=== PATIENT | female | born 1940 | race Caucasian/White ===

== ENCOUNTER 2018-04-08 06:55 | Inpatient (IN) | payer MEDICARE, OTHER, SELFPAY ==
[2018-04-08] VITALS (8 sets, daily range): BP systolic 131–167; BP diastolic 78–96; PULSE 82–110; RESP 16–28; TEMP 36.8–37.4; O2SAT 94–98; BMI 15.0
--- NOTE | 2018-04-08 07:40 | DI.CT.S_ITS ---
PROCEDURE: CT ABDOMEN PELVIS W CON INDICATIONS: vomiting, small amt blood. no BM x 3 days. RLQ/LLQ tender TECHNIQUE: After the administration of intravenous contrast, 5 mm thick sections acquired from the diaphragm to the symphysis. 5 mm coronal and sagittal reformats were acquired. For radiation dose reduction, the following was used: automated exposure control, adjustment of mA and/or kV according to patient size. COMPARISON: [facility], , CT THORAX/ABDOMEN/PELVIS W/WO CONTRAST, 07/12/2003, 13:11. FINDINGS: Image quality: Excellent. ABDOMEN: Lung bases: Lung bases are clear. Heart size is normal. Solid organs: Liver is normal in size and enhancement. Gallbladder is unremarkable. Biliary system is non dilated. Pancreas enhances normally. Spleen is normal in size and enhancement. No adrenal nodules. Kidneys demonstrate normal size and enhancement, without hydronephrosis. Low-density cystic lesions are present within the bilateral kidneys. Peritoneum and bowel: The stomach is partially contrast filled. The small bowel demonstrates normal caliber and wall thickness. Oral contrast is visualized within the small bowel. There are extensive colonic diverticular outpouchings most concentrated within the sigmoid colon. The appendix is thin walled and gas filled. There is a moderate amount of pneumoperitoneum at the diaphragm. Nodes and vessels: No retroperitoneal or mesenteric adenopathy by size criteria. Aorta and inferior vena cava are normal in size. There are scattered atheromatous calcifications throughout the aorta and iliac arteries bilaterally. Miscellaneous: No ventral hernias. PELVIS: Genitourinary: Bladder wall thickness is normal. Miscellaneous: No inguinal hernias or adenopathy. Bones: No suspicious bony lesions. No vertebral body compression fractures. IMPRESSION: 1. Moderate pneumoperitoneum at the diaphragm. Overall the bowel demonstrates normal caliber and wall thickness. There are no obvious abnormalities to explain pneumoperitoneum. 2. Extensive colonic diverticulosis. No mucosal wall thickening or pericolonic fat stranding to suggest acute diverticulitis. These findings were discussed with Dr. Peck 3:32 AM on 04/08/18. Dictated by: Alicja Van M.D. on 04/08/2018 at 9:27 Approved by: Alicja Van M.D. on 04/08/2018 at 9:35
--- NOTE | 2018-04-08 07:46 | ED_ITS ---
HPI - Abdominal Pain General Chief Complaint: Abdominal Pain Stated Complaint: Abdominal pain, throwing up blood Time Seen by Provider: 04/08/18 07:29 Source: patient and family ( ) Mode of arrival: ambulatory Limitations: no limitations History of Present Illness HPI narrative: 78-year-old female comes to the emergency department with complaint abdominal pain she has had symptoms for about 3 days but really was start were starting last night. She states that it Um is more in the right upper quadrant it did radiate to the back but is now just in the front abdomen. If she sits still Um the pain will kind of slowly subside but if she is walking or drooling it increases her pain. She did have vomiting about 630 last night 3 or 4 episodes. She states she saw a small amount of blood in each episode of emesis. Approximately a tsp. She states it was bright red. She has not had a bowel movement in approximately 3 days. She states she is having a small amount of flatus. she denies any urinary symptoms no frequency, dysuria. Patient has not had similar abdominal pain issues in the past. She does not normally follow with a physician. She states she has otherwise been healthy Does not take any medications regularly. She has not had any prior surgeries. She does have a penicillin allergy but does not remember the reaction. she smokes 1 cigarette daily for about 15 years and before then was smoking about a pack a day. alcohol approximately a glass per month. No illicit. Patient states her nausea has resolved and her pain is very slight at this time. She defers any pain or anti emetics medication. Onset (ago): day(s) Related Data Home Medications Medication Instructions Recorded Confirmed No Known Home Medications 04/08/18 04/08/18 Allergies Allergy/AdvReac Type Severity Reaction Status Date / Time Penicillins Allergy Verified 04/08/18 07:20 Review of Systems Review of Systems All systems reviewed & are unremarkable except as noted in HPI and below Constitutional Reports chills, Denies fever(s) and Denies poor appetite Cardiovascular Denies chest pain, Denies syncope, Denies irregular heart rhythm, Denies lightheadedness, Denies palpitations, Denies dyspnea, Denies dyspnea on exertion and Denies orthopnea Respiratory Denies cough, Denies dyspnea, Denies dyspnea on exertion and Denies wheezing Gastrointestinal Gastrointestinal: Reports abdominal pain, Denies melena, Denies hematochezia, Reports change in bowel habits, Denies coffee ground emesis, Reports constipation, Denies cramping, Denies early satiety, Denies diarrhea, Reports nausea, Reports vomiting ( Last night none today) and Reports hematemesis ( approximately tsp with emesis last night.) Genitourinary Denies hematuria, Denies flank pain, Denies urinary incontinence and Denies urinary urgency Musculoskeletal Denies back pain Neurologic Denies syncope Endocrine Denies palpitations Allergic/Immunologic Denies wheezing PFSH Medical History TIA (transient ischemic attack) (Acute) Social History household members: spouse Smoking Status: Current every day smoker alcohol intake: current Exam Initial Vital Signs Initial Vital Signs: Vital Signs Temperature 98.2 F 04/08/18 07:11 Pulse Rate 110 H 04/08/18 07:11 Respiratory Rate 18 04/08/18 07:11 Blood Pressure 146/96 H 04/08/18 07:11 Pulse Oximetry 98 04/08/18 07:11 Const General: cooperative and well developed Nutritional Appearance: thin Orientation: alert, awake, oriented x3 and not confused Chest Chest: normal inspection of the chest Resp Effort & Inspection: normal respiratory effort, able to speak in complete sentences, no respiratory distress and no use of accessory muscles Auscultation: clear to auscultation bilaterally, no rales, no rhonchi and no wheezes Cardio Rate: regular rate Rhythm: regular rhythm Heart Sounds: no click, no gallops, no murmurs and no rubs Pulses: normal peripheral pulses GI Inspection: non-distended Palpation: soft, no hepatosplenomegaly, No firm, No guarding, No mass, No pulsatile mass, No rigid and tender ( Patient has right lower and left lower quadrant tenderness to palpation. Minimal to no tenderness in the right upper quadrant.) Auscultation: normal bowel sounds General: No CVA tenderness Neuro General: alert, oriented x3, gait normal and no focal motor deficits Cognition: normal cognition Speech: speech normal Course Orders Ordered: ED Orders 04/08/18 12:00 MRSA PCR Stat 04/09/18 05:00 Complete Blood Count AUTO DIFF Routine Comprehensive Metabolic Panel Routine Sodium Chloride (Normal Saline 0.9%) 1,000 mls @ 150 mls/hr IV CONT LIDIA Last Infusion: 04/08/18 14:02 Dose: 0 mls/hr Infusion: 04/08/18 10:27 Dose: 150 mls/hr Admin: 04/08/18 08:56 Dose: 150 mls/hr Lactated Ringer's (Lactated Ringers) 1,000 mls @ 125 mls/hr IV CONT LIDIA Last Admin: 04/08/18 14:02 Dose: 125 mls/hr Piperacillin/Tazobactam/Dextrose (Zosyn) 3.375 gm in 50 mls @ 100 mls/hr IV Q8H LIDIA Last Admin: 04/08/18 18:35 Dose: 100 mls/hr Morphine Sulfate (Morphine) 2 mg IV Q3H PRN PRN Reason: Pain, Moderate (4-6) Morphine Sulfate (Morphine) 4 mg IV Q3HR PRN PRN Reason: Pain, Severe (7-10) Pantoprazole Sodium (Protonix) 40 mg IV DAILY LIDIA Discontinued Medications Piperacillin/Tazobactam/Dextrose (Zosyn) 3.375 gm in 50 mls @ 100 mls/hr IV NOW ONE Stop: 04/08/18 10:22 Last Infusion: 04/08/18 11:00 Dose: 0 mls/hr Admin: 04/08/18 10:26 Dose: 100 mls/hr Pantoprazole Sodium (Protonix) 40 mg IV NOW ONE Stop: 04/08/18 12:47 Last Admin: 04/08/18 14:01 Dose: 40 mg Reevaluation(s) Reevaluation #1: Patient pain is controlled currently. She is on her way to CT scan. Time: 09:28 Consultations Consultation #1: Dr. Loyola for general surgery, accepts patient plan for ICU admission. Um she will evaluate patient in the next 0.5 hr to hour. we discussed giving Zosyn, patient has a history of penicillin allergy around the age of 21 but unknown cause does not sound like an anaphylaxis from what she remembers. So will go ahead and give Zosyn and continue to monitor. Vital Signs - 8 hr 04/08/18 11:00 04/08/18 11:45 04/08/18 12:36 Temperature 98.8 F Pulse Rate 92 H 94 H 84 Respiratory Rate 18 20 16 Blood Pressure 131/89 166/83 H Blood Pressure [Right Arm] 146/78 H Pulse Oximetry 96 96 98 04/08/18 12:43 04/08/18 16:00 Temperature 99.3 F Pulse Rate 82 87 Respiratory Rate 19 20 Blood Pressure 166/83 H 156/90 H Blood Pressure [Right Arm] Pulse Oximetry 96 96 MDM - Abdominal Pain Lab Data Attestation: I reviewed the patient's lab results. Result diagrams: 04/08/18 07:45 04/08/18 07:45 Lab Results 04/08/18 04/08/18 04/08/18 Range/Units 07:45 07:45 12:00 WBC 12.3 H (4.5-11.0) X10^3/uL RBC 4.94 (4.0-5.2) X10^6/uL Hgb 14.9 (12.0-16.0) g/dL Hct 43.8 (36-46) % MCV 88.7 (80-100) fL MCH 30.2 (26-34) PG MCHC 34.0 (30-36) % RDW 13.2 (11.6-14.8) % Plt Count 209 (150-400) X10^3/uL Neut % (Auto) 90.3 H (50-75) % Lymph % (Auto) 4.7 L (25-40) % [place] % (Auto) 4.9 (3-14) % Eos % (Auto) 0.0 L (2-4) % Baso % (Auto) 0.1 (0-2) % Neut # (Auto) 57569 H (1793-9355) /uL Sodium 142 (137-145) mmol/L Potassium 4.2 (3.4-5.1) mmol/L Chloride 103 (98-107) mmol/L Carbon Dioxide 27 (22-32) mmol/L BUN 18 H (7-17) mg/dL Creatinine 0.70 (0.52-1.04) mg/dL Estimated GFR > 60.0 (>60) mL/min BUN/Creatinine Ratio 25.7 H (6-22) Glucose 153 H (80-110) mg/dL Calcium 9.3 (8.4-10.2) mg/dL Total Bilirubin 1.4 H (0.2-1.3) mg/dL AST 24 (14-36) IU/L ALT 21 (9-52) IU/L Alkaline Phosphatase 68 (38-126) U/L Total Protein 6.5 (6.3-8.2) g/dL Albumin 4.3 (3.5-5.0) g/dL Globulin 2.2 (1.7-4.1) g/dL Albumin/Globulin Ratio 2.0 (1.0-2.8) Lipase 32 (23-300) U/L Nasal Screen MRSA (PCR) Negative for mrsa (Negative) Imaging Data CT scan - abdomen: Radiologist's impression: Patient: Sarita Suarez#: [id number] : 1Acct:[id number] Age/Sex: 78 / FDate of Service: 04/08/18 Loc: ED Accession Number: [id number] Procedure: CT abdomen pelvis w con Ordering Provider: Sosa Peck D.O. PROCEDURE: CT ABDOMEN PELVIS W CON INDICATIONS: vomiting, small amt blood. no BM x 3 days. RLQ/LLQ tender TECHNIQUE: After the administration of intravenous contrast, 5 mm thick sections acquired from the diaphragm to the symphysis. 5 mm coronal and sagittal reformats were acquired. For radiation dose reduction, the following was used: automated exposure control, adjustment of mA and/or kV according to patient size. COMPARISON: [facility], , CT THORAX/ABDOMEN/PELVIS W/WO CONTRAST, 2002, 13:11. FINDINGS: Image quality: Excellent. ABDOMEN: Lung bases: Lung bases are clear. Heart size is normal. Solid organs: Liver is normal in size and enhancement. Gallbladder is unremarkable. Biliary system is non dilated. Pancreas enhances normally. Spleen is normal in size and enhancement. No adrenal nodules. Kidneys demonstrate normal size and enhancement, without hydronephrosis. Low-density cystic lesions are present within the bilateral kidneys. Peritoneum and bowel: The stomach is partially contrast filled. The small bowel demonstrates normal caliber and wall thickness. Oral contrast is visualized within the small bowel. There are extensive colonic diverticular outpouchings most concentrated within the sigmoid colon. The appendix is thin walled and gas filled. There is a moderate amount of pneumoperitoneum at the diaphragm. Nodes and vessels: No retroperitoneal or mesenteric adenopathy by size criteria. Aorta and inferior vena cava are normal in size. There are scattered atheromatous calcifications throughout the aorta and iliac arteries bilaterally. Miscellaneous: No ventral hernias. PELVIS: Genitourinary: Bladder wall thickness is normal. Miscellaneous: No inguinal hernias or adenopathy. Bones: No suspicious bony lesions. No vertebral body compression fractures. IMPRESSION: 1. Moderate pneumoperitoneum at the diaphragm. Overall the bowel demonstrates normal caliber and wall thickness. There are no obvious abnormalities to explain pneumoperitoneum. 2. Extensive colonic diverticulosis. No mucosal wall thickening or pericolonic fat stranding to suggest acute diverticulitis. These findings were discussed with Dr. Peck 3:32 AM on 04/08/18. Dictated by: Alicja Van M.D. on 04/08/2018 at 9:27 Approved by: Alicja Van M.D. on 04/08/2018 at 9:35 MDM Narrative Medical decision making narrative: patient has slight elevation in white count. CT shows free air although the source is unclear. Patient herself does not appear to have an acute abdomen although she has tenderness. Spoke with General surgery and Dr. Loyola who accepts patient for ICU admission for close observation and plan for further imaging potentially tomorrow versus surgery depending on patient's status overnight. patient was placed on Zosyn but do realize that she has a history of penicillin allergy although that was around age 21 and she does not recall the exact cause but she will be closely monitored. Discharge Plan Departure Patient Disposition: Admitted As Inpatient Clinical Impression: Intra-abdominal free air of unknown etiology, Abdominal pain Discharge Date/Time: 04/08/18 11:35 Interventions: ED Discharge Assessment Last Done: 04/08/18 11:45 Admit Date/Time: 04/08/18 11:34 Admit Provider: Meg Loyola
[2018-04-08 07:56] LABS: Add Manual Diff / Slide Review NO; Basophils Percent Auto 0.1 % (0-2); Hematocrit 43.8 % (36-46); Hemoglobin 14.9 g/dL (12.0-16.0); Lymphocytes Percent Auto 4.7 % (25-40); Mean Corpuscular Hemoglobin 30.2 PG (26-34); Mean Corpuscular Volume 88.7 fL (80-100); Monocytes Percent Auto 4.9 % (3-14); Neutrophils Absolute Auto 11100 /uL (3000-5900); Neutrophils Percent Auto 90.3 % (50-75); Platelet Count 209 X10^3/uL (150-400); Red Blood Cell Count 4.94 X10^6/uL (4.0-5.2); Red Cell Distribution Width 13.2 % (11.6-14.8); White Blood Cell Count 12.3 X10^3/uL (4.5-11.0)
[2018-04-08 08:06] LABS: Alanine Aminotransferase 21 IU/L (9-52); Albumin 4.3 g/dL (3.5-5.0); Alkaline Phosphatase 68 U/L (38-126); Aspartate Aminotransferase 24 IU/L (14-36); BUN Creatinine Ratio 25.7 (6-22); Bilirubin Total 1.4 mg/dL (0.2-1.3); Blood Urea Nitrogen 18 mg/dL (7-17); Calcium 9.3 mg/dL (8.4-10.2); Carbon Dioxide 27 mmol/L (22-32); Chloride 103 mmol/L (98-107); Estimated Glomerular Filt Rate > 60.0 mL/min (>60); Globulin 2.2 g/dL (1.7-4.1); Glucose 153 mg/dL (80-110); HEMOLYSIS 17 (0-50); Lipase 32 U/L (23-300); Potassium 4.2 mmol/L (3.4-5.1); Sodium 142 mmol/L (137-145); Total Protein 6.5 g/dL (6.3-8.2)
[2018-04-08] MEDS: SODIUM CHLORIDE 0.9% 1,000 ML 150 ML IV (08:56)
[2018-04-08] MEDS: PIPERACILLIN-TAZO 3.375 GM/50 ML FROZ.PIGGY IV ×2 (10:26→18:35)
--- NOTE | 2018-04-08 13:13 | PC.NURSE ---
PT ADMITTED TO ICU AFTER BEING SEEN IN ED FOR ABD PAIN AND INCREASED NAUSEA WITH EMESIS OVER PAST COUPLE OF DAYS.. VSS AFEBRILE ALERT/ORIENTED - REQUESTED WARM COMPRESS TO ABD RATHER THAN RX - LUNGS CLEAR TO AUSCULTATION, ORIENTED TO ROOM/BED AND CALL LIGHT SYSTEM-
[2018-04-08] MEDS: PANTOPRAZOLE 40 MG VIAL IV (14:01)
[2018-04-08] MEDS: LACTATED RINGERS 1,000 ML 125 ML IV ×2 (14:02→22:04)
--- NOTE | 2018-04-08 22:50 | PC.NURSE ---
tito note Pt reports some abd cramping. Pt says warm packs to abd help. New warm pack supplied. Denies N/V.
[2018-04-09] VITALS (18 sets, daily range): BP systolic 99–185; BP diastolic 63–95; PULSE 87–112; RESP 14–19; TEMP 36.1–37.2; O2SAT 93–100
--- NOTE | 2018-04-09 | DI.CT.S_ITS ---
PROCEDURE: CT ABDOMEN PELVIS W CON INDICATIONS: increase abd pain, h/o free air. pneumoperitoneum TECHNIQUE: After the administration of oral and intravenous contrast, 5 mm thick sections acquired from the diaphragms to the symphysis. 5 mm thick coronal and sagittal reformats were performed. For radiation dose reduction, the following was used: automated exposure control, adjustment of mA and/or kV according to patient size. COMPARISON: [facility], [place], CT THORAX/ABDOMEN/PELVIS W/WO CONTRAST, 07/12/2003, 13:11. [facility], CT, CT ABDOMEN PELVIS W CON, 04/08/2018, 8:57. FINDINGS: Image quality: Excellent. ABDOMEN: Lung bases: 5 mm nodule seen in the subpleural region of left lower lobe is grossly unchanged since 07/12/03.. Solid organs: Diffuse hepatic steatosis.. Gallbladder unremarkable. Biliary system is non-dilated. Pancreas enhances normally. Spleen is normal in size and enhancement. No adrenal nodules. Kidneys are normal in size and enhancement, without hydronephrosis. Bilateral simple appearing renal cysts. Peritoneum and bowel: Stomach is moderately distended with oral contrast material and no definite extraluminal contrast material is seen to suggest gastric perforation. There is redemonstration of intraperitoneal free air which is probably unchanged since the prior study. Small bubbles of free air are seen in the salas hepatis. There is a small gas and fluid collection seen in the region of the sigmoid colon on image 50 series 2. Which measures approximately 2.7 x 0.9 cm although the exact location is technically difficult given the paucity of intra-abdominal fat. There is surrounding thickened small bowel and large bowel wall appearance. The appendix appears within normal limits. There is large amount of stool seen in the distal colon. Nodes and vessels: There is presumed flow-related heterogeneous enhancement of the IVC, portal confluence and superior mesenteric vein. No retroperitoneal or mesenteric adenopathy. Aorta and inferior vena cava are normal in caliber. Miscellaneous: No ventral hernias. PELVIS: Genitourinary: Bladder wall thickness is normal. Miscellaneous: No inguinal hernias or adenopathy. Bones: No suspicious bony lesions. No vertebral body compression fractures. IMPRESSION: No definite extraluminal contrast identified. Redemonstration of intraperitoneal free air, grossly unchanged. Sigmoid colonic wall thickening with a small gas and fluid collection raise the possibility of acute diverticulitis with perforation. There is adjacent small bowel wall thickening which could be reactive in nature, versus infectious or inflammatory enteritis. Please correlate clinically. As always, recommend clinical followup to document resolution and exclude the possibility of perforated colonic neoplasm. Findings were personally discussed with Dr. Terrell on the morning of 04/09/18. Dictated by: Albert Sanchez M.D. on 04/09/2018 at 11:32 Approved by: Albert Sanchez M.D. on 04/09/2018 at 12:01
--- NOTE | 2018-04-09 | PATH_ITS ---
[facility] Accession Number: [id number] . 01 Material submitted: . SIGMOID COLON . 02 Diagnosis: Sigmoid Colon, Resection: Segment of sigmoid colon with perforated diverticulitis and serositis. Negative for dysplasia or malignancy. [facility]/04/11/2018 . 02 Electronically signed: . Chris Mckenna MD, PhD, Pathologist NPI- [id number] . 01 Gross description: . Received in formalin, labeled sigmoid colon, long stitch proximal margin, is a segment of colon (length-7.5 cm, proximal diameter-2.9 cm, distal diameter-3.3 cm). The resection margins are received stapled and the proximal end contains a two-tailed black suture. The serosa is red-brown and pale pink. The proximal serosa is partially covered in bravo-yellow friable exudate. Underlying the exudate is a sutured perforated area (1.5 x 0.7 cm). The perforation is 2.7 cm from the proximal resection margin. The mucosa is medina smooth and predominantly flat with a scant amount of normal folds. Multiple diverticula are identified. The resection margins are inked black. Section code: (A1, A2) proximal resection margin with perforation, longitudinally sectioned, bilingual call center representative; (A3) distal resection margin, longitudinally sectioned, bilingual call center representative; (A4-A6) colon, bilingual call center representative serial sections submitted proximal to distal. ([id number]) /[facility] . 02 Pathologist provided ICD-10: K57.20 . 02 CPT . 744138 Performed at: [address] [facility], [place], [place] [id number] MD Chon Scott MD Phone: [phone] Performed at: [address] [place] [address] [place] [id number] MD Griffin Escobar MD Phone: [phone]
--- NOTE | 2018-04-09 00:47 | HP_ITS ---
DATE OF ADMISSION: 04/08/2018 ADMISSION DIAGNOSIS: Perforated viscus and abdominal pain. HISTORY OF PRESENT ILLNESS: The patient is admitted through the Emergency Department with 2 days of abdominal pain and discomfort and anorexia starting yesterday evening. Last meal was yesterday at noontime. The pain was migratory in nature and she does have right-sided shoulder pain. PAST MEDICAL HISTORY: Diverticulosis and diverticulitis. HOME MEDICATIONS: Please see nursing notes in medical record. SOCIAL HISTORY: She is here with her . FAMILY HISTORY: Noncontributory. REVIEW OF SYSTEMS: No history of GI upset leading up to this event. She does have issues with constipation. Her weight is stable, for many, many years. PHYSICAL EXAMINATION: VITAL SIGNS: Pulse 94. Respiratory rate 20. Blood pressure 131/89. She is 96% on room air. BMI of 15.1 HEENT: Head is atraumatic, normocephalic. Eyes sclerae are clear. No evidence of jaundice. NECK: Supple. No adenopathy. Trachea midline. CARDIAC: Heart has regular rate and rhythm. RESPIRATORY: Lungs bilaterally clear and no wheezes. GASTROINTESTINAL: Abdomen is soft, nontender to palpation, and no distention. No acute abdomen. NEUROLOGIC: Francisca Coma scale is 15. Speech is clear and appropriate. Gross motor skills are intact. LABORATORY DATA/X-RAYS: White blood cell count of 12.3, hematocrit 43%, hemoglobin 14.9. Complete metabolic panel shows slight dehydration with a BUN f 18, creatinine of 0.7. Total bilirubin slightly at 1.4. Remaining are within normal limits. CT scan, per my read, shows free air in the abdomen, predominantly in the upper abdomen and no significant fluid collections or abscesses. She does have diverticulosis but I cannot see any particular inflammatory process within the colon itself. Of note, she did have oral contraceptive, but no extravasation of contrast on CT. IMPRESSION: Perforated viscus, likely gastric. Currently, nontoxic. PLAN: Nonoperative approach with prophylactic antibiotic of Zosyn, along with scheduled Protonix IV b.i.d. ICU for close observation given her age, CT findings, and lack of reserve. Tylenol, IV, scheduled for pain. Diet will be n.p.o. We discussed the potential for exploratory laparotomy if she fails to improve. If she remains stable tomorrow, we will consider upper GI for evaluation specifically of the stomach for active extravasation of oral contrast. CODE STATUS: Full Code. Sarita Suarez - AMBER/eloisa/elvira doc#: [id number]/job#: [id number] dd: 04/08/2018 12:26:00 dt: 04/09/2018 00:25:00 DICTATING MD/COPIES TO: Meg Loyola MD COPIES MNE: FRAP
[2018-04-09] MEDS: PIPERACILLIN-TAZO 3.375 GM/50 ML FROZ.PIGGY IV ×4 (01:48→22:12)
[2018-04-09 05:56] LABS: Alanine Aminotransferase 24 IU/L (9-52); Albumin 3.5 g/dL (3.5-5.0); Albumin Globulin Ratio 1.7 (1.0-2.8); Alkaline Phosphatase 55 U/L (38-126); Aspartate Aminotransferase 23 IU/L (14-36); Bilirubin Total 1.5 mg/dL (0.2-1.3); Blood Urea Nitrogen 16 mg/dL (7-17); Calcium 8.7 mg/dL (8.4-10.2); Carbon Dioxide 27 mmol/L (22-32); Chloride 102 mmol/L (98-107); Estimated Glomerular Filt Rate > 60.0 mL/min (>60); Globulin 2.1 g/dL (1.7-4.1); Glucose 87 mg/dL (80-110); HEMOLYSIS < 15 (0-50); Sodium 138 mmol/L (137-145); Total Protein 5.6 g/dL (6.3-8.2)
[2018-04-09 06:08] LABS: Add Manual Diff / Slide Review NO; Basophils Percent Auto 0.2 % (0-2); Eosinophils Percent Auto 0.3 % (2-4); Hematocrit 41.5 % (36-46); Lymphocytes Percent Auto 11.8 % (25-40); Mean Corpuscular HGB Conc 33.7 % (30-36); Mean Corpuscular Hemoglobin 30.1 PG (26-34); Mean Corpuscular Volume 89.3 fL (80-100); Monocytes Percent Auto 4.7 % (3-14); Neutrophils Absolute Auto 7500 /uL (3000-5900); Platelet Count 187 X10^3/uL (150-400); Red Blood Cell Count 4.64 X10^6/uL (4.0-5.2)
[2018-04-09] MEDS: LACTATED RINGERS 1,000 ML 125 ML IV ×2 (06:30→17:21)
[2018-04-09] MEDS: PANTOPRAZOLE 40 MG VIAL IV (10:11)
--- NOTE | 2018-04-09 11:03 | PN_ITS ---
DATE OF SERVICE: 04/09/2018 SUBJECTIVE: Patient admitted yesterday with abdominal discomfort and CT findings of free air in the abdomen. No clear etiology at the time. Clinical condition consistent with gastric ulcer perforation that would be amenable to observation and possible nonoperative treatment. Started on antibiotics prophylactically and Protonix. She has been n.p.o. with IV fluid hydration. Overnight, she denies significant discomfort. However, she remains tachycardic in the 90s and slightly hypertensive. She is on scheduled Tylenol but refuses narcotics. Her pain has changed. Rather than migratory, there is a focal left lower quadrant tenderness to light palpation. IMPRESSION: Free air in the abdomen but now more focal significant tenderness in left lower quadrant concerning for either spillage not seen on prior CT or perforation from the colon itself. PLAN: Continue IV antibiotics. Continue Protonix. Discussed with Radiology. Best scenario for looking at extravasation of p.o. contrast in the stomach as well as reviewing the overall findings. We agreed upon CT scan repeated so that we can determine if there is increased air over yesterday's CT scan. Again reviewed the left lower quadrant area that is now tender, and at this time we will scan as soon as the oral contrast is given so that the contrast is within the stomach for better evaluation. Sarita Suarez - PF/eloisa/kv doc#: [id number]/job#: [id number] dd: 04/09/2018 09:17:00 dt: 04/09/2018 10:56:00 DICTATING /COPIES TO: Meg Loyola MD COPIES MNE: [id number]
[2018-04-09] MEDS: SODIUM CHLORIDE 0.9% FLUSH 10 ML IV (12:14)
[2018-04-09] MEDS: ONDANSETRON 4 MG/2 ML INJ IV (14:03)
[2018-04-09] MEDS: MORPHINE 2 MG/ML INJ IV (14:03)
--- NOTE | 2018-04-09 14:21 | P.PN_ITS ---
Subjective Date Patient Seen: 04/09/18 Time Patient Seen: 14:13 Interval history: Patient complaining of severe pelvic and left lower quadrant pain at the time of my examination today. I am meeting the patient for the 1st time as I assumed care from Dr. Loyola. is at the bedside. Please see Dr. Ng wounds notes for further details to this point. Patient completed a CT scan of the abdomen and pelvis is follow-up the yesterday's study. I have personally reviewed those films with the radiologist. Results are as below. However, the patient is now stating that she feels much worse than when she initially came to the hospital yesterday. She is now having nausea and vomiting. She had 1 small formed bowel movement after the CT scan earlier today but no flatus or any bowel function since. Denies subjective fever or chills. She currently rates her pain is quite severe. Exam Vital Signs (past 8 hours): - 04/09/18 08:00 04/09/18 12:02 04/09/18 12:11 Temperature 98.8 F 99.0 F Pulse Rate 94 H 87 90 Respiratory Rate 19 Blood Pressure 145/89 H 159/88 H Pulse Oximetry 93 94 94 Oxygen Delivery Method Room Air Oxygen Flow Rate 0 Narrative Exam Narrative: Patient has no fevers but her heart rate is trending upwards. In fact heart rate is 105 sinus rhythm during my examination. She is laying in the left lateral decubitus position with her legs withdrawn as she states this is the only somewhat comfortable position she can fine. Supine position or any type of movement in the bed now causes her significant discomfort. She has refused morphine since her admission, but she is now requesting a for the severity of the pain. She is also having nausea and dry heaving during my exam. She remains alert oriented x3. Sclera nonicteric Regular rate rhythm other than the tachycardia as above Abdomen is firm and essentially rigid. She is significantly tender in the suprapubic and left lower quadrant area with involuntary guarding and rebound tenderness. She cries out with minimal palpation due to the discomfort. Extremities show no clubbing, cyanosis, or edema Objective Labs Result Diagrams: 04/09/18 05:07 04/09/18 05:07 Labs: Laboratory Results - last 24 hr 04/09/18 04/09/18 05:07 05:07 WBC 9.0 RBC 4.64 Hgb 14.0 Hct 41.5 MCV 89.3 MCH 30.1 MCHC 33.7 RDW 13.0 Plt Count 187 Neut % (Auto) 83.0 H Lymph % (Auto) 11.8 L [place] % (Auto) 4.7 Eos % (Auto) 0.3 L Baso % (Auto) 0.2 Neut # (Auto) 7500 H Sodium 138 Potassium 4.0 Chloride 102 Carbon Dioxide 27 BUN 16 Creatinine 0.80 Estimated GFR > 60.0 BUN/Creatinine Ratio 20.0 Glucose 87 Calcium 8.7 Total Bilirubin 1.5 H AST 23 ALT 24 Alkaline Phosphatase 55 Total Protein 5.6 L Albumin 3.5 Globulin 2.1 Albumin/Globulin Ratio 1.7 I have personally reviewed the CT scan done at admission yesterday and again today. There is no extravasation of contrast, but there is no contrast within the colon at this point. There appeared to be inflammatory changes in the left lower quadrant adjacent to the colon which has significant diverticulosis. Small amount of free extraluminal air at that level. The air was actually present on yesterday's study as well. There is fluid within the pelvis. Free air otherwise remains unchanged over liver and under the diaphragm bilaterally. Assessment & Plan Plan: Assessment/Plan Narrative: 78-year-old female with evolving peritonitis secondary to perforated viscus. At this point I suspect perforated diverticulitis with probable pelvic abscess. Based on her current findings and condition I have recommended emergent exploratory laparotomy with probable bowel resection. I discussed this in detail with the patient and her . Anticipated postoperative course including critical care in the ICU as well as even need for ventilator support was explained. We also discussed the need for central venous access and TPN within the next 1-2 days. Risks, benefits, alternatives were also explained. The alternative of ongoing non operative management was discussed although in my opinion she would likely of peritonitis and sepsis without an operation. Risks including but not limited to anesthesia, bleeding, need for transfusion , infection, scar, poor wound healing, evolving sepsis, need for ostomy, need for drains, gastric injury, liver injury, colon injury, small bowel injury, bladder injury, ureter injury, renal injury, major vascular injury, recurrent abscess, recurrent bowel leakage, need for further procedures including major abdominal surgery, and even were discussed in detail. All questions were answered to her satisfaction, and she voiced understanding. voiced understanding as well. Consent was placed on the chart. We will proceed emergently as above.
--- NOTE | 2018-04-09 14:21 | PC.NURSE ---
Addendum entered by Albert Rust R.N. 04/09/18 14:49: Pt hooked up to transport monitor. Left for OR in bed at 1446 with OR RNs. Glasses, dentures and jewelry with pt. Bedside report given to WASTE RECLAIMER. Original Note: Dr. Terrell rounded. Updated pt/ of CT results. Obtained surgical consent. Pt c/o of increased pelvic pain and nausea. Dr. Terrell gave verbal orders to give zofran and morphine. T 97.9 temporal HR 97 BP 195/110 RR 17 SPO2 96% on RA. Pt is awake and alert and making needs known. Dr. Chi at bedside. States she will address BP intra op.
[2018-04-09] MEDS: ALBUTEROL 2.5 MG/3 ML NEB (ADULT) INH (14:52)
[2018-04-09] MEDS: metroNIDAZOLE 500 MG/100 ML PIGGYBACK 100 MG IV (15:14)
--- NOTE | 2018-04-09 15:14 | CM.DANOTE ---
Addendum entered by Sapna Stringer LPN 04/09/18 15:22: Pt to OR 1440 Original Note: Discharge Planning/Care Management DCP: assessment: case received, EMR reviewed. Pt is a 78 year old female who admitted to care of the [facility] Surgeons team yesterday afternoon. Dr. Terrell took over care today and urgent surgery is planned. Payer: Medicare and [facility] PCP: not known at this time. Dr. Terrell explained the POC going forward to pt and her . P: determination made to continue the assessment process tomorrow...post surgery as pt's medical needs are urgent at this time and this is not the time for d/c planning discussion. Will check in tomorrow as per plan and follow accordingly. CM Discharge Assessment Start: 04/09/18 15:11 Freq: Status: Active Protocol: Document 04/09/18 15:12 ITV (Rec: 04/09/18 15:14 ITV [id number]) Discharge Planning Assessment History Provided By Medical Record Prior Living Arrangements House Household Members spouse Whiteboard Updated in Patient Room with No name and ext. # of Scene Shifter Comment Urgent surgery is planned, pt is currently in ICU. plan to check in tomorrow post surgery , update white board and see pt and or .... DCPlanning is not the focus of pt's needs at this time. Review Status In Process Next Review Type Continued Stay Review
--- NOTE | 2018-04-09 15:29 | SUR.OPER ---
Supine on padded OR bed, head on pillow, right arm padded and tucked at side, left arm is placed on padded arm board, legs uncrossed, safety belt at thigh, tape over blanket over lower legs .
--- NOTE | 2018-04-09 18:11 | PM.OP.1 ---
Operative Date/Time/Diagnoses Date of procedure: 04/09/18 Time of procedure: 18:12 Pre-op diagnosis: Perforated viscus with peritonitis Post-op diagnosis: other (Perforated sigmoid diverticulitis with pelvic abscess) Procedure & Clinicians Procedure: 1. Exploratory laparotomy 2. Drainage of pelvic abscess 3. Partial sigmoid colectomy 4. Maturation of descending end colostomy Same procedure as scheduled: Yes Indications: 78-year-old female who presented with progressive abdominal pain. Free air was found on CT scan. Her examination was also quite concerning for peritonitis. She was recommended to undergo emergent laparotomy with potential bowel resection. Surgeon: Rohith Terrell Click Yes if Unassisted: Yes Anesthesia Type: General Operative Notes Findings: 1. Melecio perforation of sigmoid diverticulum with small amount of melecio fecal soilage 2. Pelvic abscess 3. Inflammatory adhesions between proximal jejunum and sigmoid colon at site of perforation 4. Extensive diverticulosis of the entire left colon extending to the rectosigmoid junction Closure Type: primary Specimen(s): other (1. Segment of sigmoid colon 2. Pelvic fluid for Gram stain and culture) Implants & Drains: [place] Mejia-Chan drain draining pelvis to bulb suction Estimated Blood Loss (mL): 150 Blood products transfused: none Procedure in detail: After obtaining informed consent the patient was brought emergently to the operating room placed supine on the table. After satisfactory induction of anesthesia a Montejo catheter was inserted to decompress the urinary bladder. A nasogastric tube was also inserted to decompress the stomach. SCOAP time out was performed per standard protocol. All pressure points were padded appropriately. Abdomen was prepped and draped in the usual sterile fashion including Ioban drape. Vertical midline incision was created from just below the umbilicus to the suprapubic region with 10 scalpel blade. Bovie was used to achieve hemostasis and carried the dissection down to the rectus fascia. Fascia was divided in the midline with the Bovie. Underlying peritoneum was secured between hemostats and entered under direct visualization sharply with Metzenbaum scissors. Surgeon's finger was then inserted in the remaining portion of the fascia and peritoneum were opened over the Surgeons inserted fingers using the Bovie. Pelvic abscess fluid was identified sent for culture. Exploration of the abdomen was then performed with findings as above. Small bowel was liberated from the sigmoid colon and examined from the ligament of Treitz to the ileocecal valve. Bowel was otherwise viable without perforation or other abnormalities. Palpation of the nasogastric tube revealed it to be in good position within the stomach. No masses or other abnormalities were appreciated. Palpation of the liver revealed no obvious masses. Bookwalter retractor was used to provide exposure. Left colon was then mobilized sharply with Metzenbaum scissors along the peritoneal reflection. Left ureter was clearly identified and great care was taken to avoid injury to the structure. Once the colon was mobilized the perforated segment of the sigmoid colon was divided proximally with a single application of the JUAN 75 mm stapler at a level where the bowel was clearly not dilated and not inflamed. In a similar fashion the distal bowel was also divided above the rectosigmoid junction. Mesentery was taken down meticulously between clamps and divided sharply with Metzenbaum scissors. Two 0 silk ties and 3 0 silk suture ligatures were used to secure hemostasis. Specimen was oriented and sent for permanent section. Corners of the distal bowel were then marked with 0 Prolene sutures for future identification. Descending colon was mobilized further in order to provide adequate length for maturation of the colostomy without tension. Bowel was noted to be quite viable. Appendix was identified and noted to be normal. Fallopian tubes and ovaries were also identified and noted to be without abnormalities. Abdomen was then irrigated with at least 2 L of warm saline solution and suction from the abdomen. Irrigant was clear. Hemostasis was again verified. Mejia-Chan drain was brought through a separate stab incision in the right lower quadrant and placed deep within the pelvis to drain the abscess cavity. Drain was secured to the skin with a single 3 0 nylon suture. Appropriate site for colostomy was chosen in the left lateral abdomen where the skin was then secured with a Lindsey clamp. Circular incision was created with a 10 scalpel blade. Bovie was used to achieve hemostasis and removed the skin and subcutaneous tissue. Rectus fascia was divided in a cruciate fashion with the Bovie large enough to just accommodate 2 of the surgeon's fingers. The descending colon was then retrieved through the abdominal wall defect and secured with an Allis clamp. Again, there was adequate length to form the colostomy. Bowel was again noted to be viable. Small bowel and omentum were replaced into the abdomen and noted to be viable without any abnormalities. Omentum was placed over the bowel. Fascia was then closed with 2 individual running 1 Prolene sutures tied in the midline. Wound was irrigated with sterile saline solution and noted be hemostatic. Skin was closed loosely with jayne. Sterile dressing was applied. Attention was turned to the colostomy. Staple line was removed with curved Greenwood scissors. Colostomy was then matured in a standard fashion with interrupted 3 0 Vicryl suture. Temporary colostomy appliance was applied. Again, the bowel was viable with good perfusion of the colostomy itself. Patient was left intubated and taken directly to the ICU for ongoing critical care and resuscitation. Complications: none Condition: critical Disposition: ICU Plan for aftercare: 1. Admit to ICU on ventilatory support for ongoing resuscitation and treatment of peritonitis
--- NOTE | 2018-04-09 18:18 | DI.RAD.S_ITS ---
PROCEDURE: XR CHEST 1V INDICATIONS: ET TUBE AND NG TUBE PLACEMENT, intubated, laparotomy TECHNIQUE: One view of the chest was acquired. COMPARISON: [facility], , CHEST 2 VIEW, 08/18/2009, 13:17. FINDINGS: Surgical changes and devices: An endotracheal tube is seen, with the tip 3-4 cm above the shreya. A gastric tube is seen, with the tip seen overlying the mid stomach. The sidehole is seen at the level of the diaphragm. Lungs and pleura: No pleural effusions or pneumothorax. Lungs are clear, and hyperexpanded. Mediastinum: Mediastinal contours appear normal. Heart size is normal. Bones and chest wall: No suspicious bony lesions. Age-appropriate bony degenerative changes are seen. Overlying soft tissues appear unremarkable. IMPRESSION: The tip of the endotracheal tube is seen 3-4 cm above the shreya. The tip of the gastric tube overlies the mid stomach. The sidehole is seen near the level of the diaphragm. Hyperexpanded lungs. Dictated by: Trevon Coffey M.D. on 04/09/2018 at 18:38 Approved by: Trevon Coffey M.D. on 04/09/2018 at 18:40
[2018-04-09 18:53] LABS: Hematocrit 45.3 % (36-46); Hemoglobin 15.1 g/dL (12.0-16.0)
[2018-04-09] MEDS: FLUCONAZOLE 200 MG/100 ML PIGGYBACK 100 MG IV (19:12)
[2018-04-09] MEDS: PROPOFOL 1,000 MG/100 ML VIAL 1.197 MG IV (19:17)
[2018-04-09] MEDS: LACTATED RINGERS 1,000 ML 100 ML IV (19:17)
--- NOTE | 2018-04-09 20:48 | PC.NURSE ---
tito nice Pt received from surgery with anesthesiologist, RN, and surgeon in attendance. Pt has ETT, NGT, Montejo, colostomy, Justo drain, midline abd drsg. Pt initially hypertensive, until propofol gtt started, now SBP 90s. Labs drawn per phlebotomy, CXR done. ETT adjusted by RT and NGT advanced by Dr. Terrell.
[2018-04-09] MEDS: LACTATED RINGERS 500 ML 250 ML IV (21:14)
[2018-04-09] MEDS: HYDROMORPHONE 1 MG INJ IV (23:34)
[2018-04-10] VITALS (26 sets, daily range): BP systolic 81–130; BP diastolic 47–76; PULSE 68–102; RESP 12–20; TEMP 36.1–36.7; O2SAT 95–99; BMI 15.0
[2018-04-10] MEDS: metroNIDAZOLE 500 MG/100 ML PIGGYBACK 100 MG IV ×3 (00:15→15:43)
[2018-04-10] MEDS: LACTATED RINGERS 500 ML 250 ML IV ×2 (01:28→08:17)
[2018-04-10] MEDS: HYDROMORPHONE 1 MG INJ IV ×3 (04:36→15:48)
[2018-04-10] MEDS: LACTATED RINGERS 1,000 ML 100 ML IV (04:40)
[2018-04-10 05:27] LABS: HCO3 ABG 24 mmol/L (23-27); PCO2 ABG 42.1 mmHg (35-45); PO2 ABG 72 mmHg (80-105); TCO2 ABG 25 mmol/L (23-27); pH ABG 7.35 (7.35-7.45)
[2018-04-10 05:28] LABS: Fractionated Inspired Oxygen 0.3; Oxygen Saturation ABG 94 % (95-100)
[2018-04-10 05:53] LABS: Hematocrit 37.1 % (36-46); Hemoglobin 12.7 g/dL (12.0-16.0); Mean Corpuscular HGB Conc 34.2 % (30-36); Mean Corpuscular Hemoglobin 30.7 PG (26-34); Mean Corpuscular Volume 89.8 fL (80-100); Platelet Count 165 X10^3/uL (150-400); Red Blood Cell Count 4.12 X10^6/uL (4.0-5.2); Red Cell Distribution Width 13.1 % (11.6-14.8); White Blood Cell Count 8.5 X10^3/uL (4.5-11.0)
[2018-04-10 06:01] LABS: Add Manual Diff / Slide Review YES
[2018-04-10 06:02] LABS: Alanine Aminotransferase 20 IU/L (9-52); Albumin 2.7 g/dL (3.5-5.0); Albumin Globulin Ratio 1.4 (1.0-2.8); Alkaline Phosphatase 35 U/L (38-126); Aspartate Aminotransferase 24 IU/L (14-36); Bilirubin Total 1.1 mg/dL (0.2-1.3); Blood Urea Nitrogen 21 mg/dL (7-17); Calcium 7.9 mg/dL (8.4-10.2); Carbon Dioxide 25 mmol/L (22-32); Chloride 102 mmol/L (98-107); Estimated Glomerular Filt Rate 53.8 mL/min (>60); Glucose 141 mg/dL (80-110); HEMOLYSIS < 15 (0-50); Potassium 3.9 mmol/L (3.4-5.1); Sodium 135 mmol/L (137-145); Total Protein 4.7 g/dL (6.3-8.2)
--- NOTE | 2018-04-10 06:32 | PC.NURSE ---
NOC Shift: Pt POD #[address] Terrell. Pt remains ventilated, sedated w/propofol gtt. Pt wakes intermittently w/stimulation, nods head yes, no appropriately, follows commands. Restraints per protocol. Pt sensitive to Diluadid, causes hypotension. Half dose of 0.5mg given prn for pain. Dr. Terrell notified once for pt. hypotension and low urinary output. One 500ml IV fluid bolus given w/adaquate response. ABD soft, absent BT's, dsg CDI. Colostomy w/no drainage, stoma pink, BOO drain patent w/sanquinous drainage. ABG's, labs stable this AM. Possible vent wean today to extubate. ICU care.
[2018-04-10] MEDS: PIPERACILLIN-TAZO 3.375 GM/50 ML FROZ.PIGGY IV ×3 (06:40→23:11)
[2018-04-10 06:41] LABS: Dohle Bodies 1+
--- NOTE | 2018-04-10 07:40 | PC.NURSE ---
Addendum entered by Albert Rust R.N. 04/10/18 14:19: Spoke with MD. Reported pt requesting heating pad. Reported urine output, vs. MD states continue to monitor urine output and OK to use k-pad. Original Note: Addendum entered by Albert Rust R.N. 04/10/18 10:52: PICC placed at 1030 and confirmed by CXR/DI RN. Pt tolerated well. Positioned on left side for comfort. Instructed on splinting with pillow during position changes, coughing, deep breathing. SPO2 on 2L NC 93-95%. Pt reports pain is minimal. Call light in easy reach. Original Note: Addendum entered by Albert Rust R.N. 04/10/18 09:30: Dr. Terrell at bedside. Reported pt tolerating cpap trial with occassional bradypnea (RR 6). SPO2 96-98% on current settings. Pt awakens to verbal stimuli and follows commands. MD gave verbal order to extubated. Notified RT. Pt was extubated to 2LPM NC at [address] Terrell at bedside. This was well tolerated. Pt is sitting bolt upright in bed making needs known with clear speech. Original Note: Addendum entered by Albert Rust R.N. 04/10/18 07:50: RT initiated CPAP trial at 0750. Original Note: 0730- Dr. Terrell on rounds at bedside. Assessed pt together and visualized stoma. Reported UOP overnight. Pt is sedated on propofol to rass -2. Opens eyes to verbal stimuli and nods head yes/no appropriately. She is attempting to mouth words around tube. She is moving all extremities to command with equal quality. Dr. Terrell instructs to turn off propofol and notify RT to perform cpap trial. Educated pt to plan of care and cpap trial. Propofol titrated to off at 0735. Verbal order read back to increase LR to 150 ml/hr and give LR bolus of 500 ml over 2 hours. Pt is currently denying pain and shakes head no when asked if she needs anything.
[2018-04-10] MEDS: ENOXAPARIN 30 MG/0.3 ML SYRINGE SUBCUT (08:17)
[2018-04-10] MEDS: PANTOPRAZOLE 40 MG VIAL IV (08:17)
--- NOTE | 2018-04-10 10:10 | DI.RAD.S_ITS ---
PROCEDURE: XR CHEST FOR PICC 1V INDICATIONS: verify PICC placement COMPARISON: [facility], CT, CT ABDOMEN PELVIS W CON, 04/09/2018, 10:21. [facility], CR, XR CHEST 1V, 04/09/2018, 18:23. [facility], CR, CHEST 2 VIEW, 08/18/2009, 13:17. FINDINGS: PICC was placed by the intravenous therapy team from the left side. Fluoroscopic spot film demonstrates tip of PICC in the distal SVC just above the atrial caval junction. Esophagogastric tube in normal position with side port below the EG junction. A scant amount of free air remains beneath the diaphragms. This was previously documented by CT scanning including one day ago. IMPRESSION: Tip of PICC lies within the distal SVC, esophagogastric tube positioning normal. Severe COPD with flattening of the diaphragms again noted. Slight amount of residual free air beneath the diaphragms, also present to a greater degree during CT scanning one day ago. Dictated by: Kaushik Ramey M.D. on 04/10/2018 at 10:38 Approved by: Kaushik Ramey M.D. on 04/10/2018 at 10:41
[2018-04-10] MEDS: ONDANSETRON 4 MG/2 ML INJ IV (17:20)
[2018-04-10] MEDS: FLUCONAZOLE 200 MG/100 ML PIGGYBACK 100 MG IV (17:23)
--- NOTE | 2018-04-10 17:49 | PC.NURSE ---
Addendum entered by Vivien Velazquez R.N. 04/10/18 22:13: pt dangled at bedside and took 3-4 side steps to aide in repostioning- tolerating well Original Note: pt c/o edge of nausea called md and received orders for iv zofran which was given and effective - this rn also irrigated ngt at this time-which is draining bilious fluid. she is also tolerating intermittent iv dilaudid for pain- repositioned on left side for comfort
--- NOTE | 2018-04-10 18:03 | P.PN_ITS ---
Subjective Date Patient Seen: 04/10/18 Time Patient Seen: 17:58 Interval history: Patient seen and examined several times throughout the day. Initial examination was at approximately 7:30 a.m. this morning while still intubated. She was extubated successfully without any issues. I was at the bedside. Currently she is having no new complaints and pain is minimal. Mild nausea earlier but no vomiting. Nasogastric tube is functioning. No chest pain or shortness of breath. Exam Vital Signs (past 8 hours): - 04/10/18 10:30 04/10/18 11:00 04/10/18 12:00 Temperature Pulse Rate 84 82 Respiratory Rate 14 15 Blood Pressure 114/63 97/47 L Pulse Oximetry 95 96 96 04/10/18 12:03 04/10/18 13:12 04/10/18 15:32 Temperature 98 F 97.5 F L Pulse Rate 81 82 85 Respiratory Rate 15 14 18 Blood Pressure 117/62 115/58 L 108/56 L Pulse Oximetry 97 96 96 04/10/18 16:17 Temperature Pulse Rate Respiratory Rate Blood Pressure Pulse Oximetry 95 Fraction of Inspired Oxygen 50 Oxygen Delivery Method Nasal Cannula Oxygen Flow Rate 1 Narrative Exam Narrative: Thin female in no acute distress. Alert oriented. No crackles or wheezes Abdomen is soft and minimally distended. Appropriately tender. Dressing is clean, dry, and intact. Drain output is serosanguineous. No melecio pus. Nasogastric tube output is mildly bilious. Colostomy is pink and viable. No stool or air in the appliance as yet. Extremities show no clubbing, cyanosis, or edema Objective Labs Result Diagrams: 04/10/18 04:59 04/10/18 04:59 Labs: Laboratory Results - last 24 hr 04/09/18 04/09/18 04/10/18 18:44 18:44 04:59 WBC 8.5 RBC 4.12 Hgb 15.1 12.7 Hct 45.3 37.1 MCV 89.8 MCH 30.7 MCHC 34.2 RDW 13.1 Plt Count 165 Neut % (Auto) Not Reportable Lymph % (Auto) Not Reportable [place] % (Auto) Not Reportable Eos % (Auto) Not Reportable Baso % (Auto) Not Reportable Seg Neutrophils % 38.0 Band Neutrophils % 50.0 H Lymphocytes % (Manual) 4.0 L Monocytes % (Manual) 2.0 Metamyelocytes % 5.0 H Myelocytes % 1.0 H Dohle Bodies 1+ H RBC Morphology Not Reportable ABG pH ABG pCO2 ABG pO2 ABG HCO3 ABG Total CO2 ABG O2 Saturation ABG Base Excess FiO2 Sodium Potassium Chloride Carbon Dioxide BUN Creatinine Estimated GFR BUN/Creatinine Ratio Glucose Calcium Total Bilirubin AST ALT Alkaline Phosphatase Total Protein Albumin Globulin Albumin/Globulin Ratio Blood Type O Positive Antibody Screen Negative 04/10/18 04/10/18 04:59 05:20 WBC RBC Hgb Hct MCV MCH MCHC RDW Plt Count Neut % (Auto) Lymph % (Auto) [place] % (Auto) Eos % (Auto) Baso % (Auto) Seg Neutrophils % Band Neutrophils % Lymphocytes % (Manual) Monocytes % (Manual) Metamyelocytes % Myelocytes % Dohle Bodies RBC Morphology ABG pH 7.35 ABG pCO2 42.1 ABG pO2 72 L ABG HCO3 24 ABG Total CO2 25 ABG O2 Saturation 94 L ABG Base Excess -2.0 FiO2 0.3 Sodium 135 L Potassium 3.9 Chloride 102 Carbon Dioxide 25 BUN 21 H Creatinine 1.00 Estimated GFR 53.8 L BUN/Creatinine Ratio 21.0 Glucose 141 H Calcium 7.9 L Total Bilirubin 1.1 AST 24 ALT 20 Alkaline Phosphatase 35 L Total Protein 4.7 L Albumin 2.7 L Globulin 2.0 Albumin/Globulin Ratio 1.4 Blood Type Antibody Screen No new radiographic studies for review. Chest x-ray following surgery yesterday showed all tubes to be in position with no significant pulmonary infiltrates. Assessment & Plan Plan: Assessment/Plan Narrative: 78-year-old female who is stable postoperative day 1 from laparotomy with sigmoid colectomy and diverting colostomy secondary to perforated diverticulitis. She is maintaining her saturations on minimal supplemental oxygen at this point. Emphasized incentive spirometry and pulmonary toilet. PICC line placed. Likely start TPN tomorrow. Anticipate prolonged ileus given the nature of her disease and required operation. Therefore continue nasogastric tube. Continue pelvic drain. Awaiting final cultures from the peritoneal fluid done yesterday. Continue Zosyn, Flagyl, and Diflucan currently. DVT prophylaxis with sequential compression devices and Lovenox. Ulcer prophylaxis continues with Protonix. We will mobilize out of bed tomorrow , likely with physical therapy. Continue IV fluid resuscitation as she remains somewhat hypovolemic with marginal urine output. However, this is improving. All the above discussed with the patient's as well earlier today. Questions were answered to his satisfaction, and he voiced understanding. Orders were written.
[2018-04-10] MEDS: LACTATED RINGERS 1,000 ML 150 ML IV (19:06)
[2018-04-11] VITALS (17 sets, daily range): BP systolic 112–166; BP diastolic 60–82; PULSE 14–92; RESP 13–19; TEMP 36.5–37.4; O2SAT 89–98
[2018-04-11] MEDS: metroNIDAZOLE 500 MG/100 ML PIGGYBACK 100 MG IV ×3 (00:01→16:15)
[2018-04-11] MEDS: ONDANSETRON 4 MG/2 ML INJ IV ×2 (00:23→10:03)
[2018-04-11] MEDS: LACTATED RINGERS 1,000 ML 150 ML IV (04:05)
[2018-04-11] MEDS: PIPERACILLIN-TAZO 3.375 GM/50 ML FROZ.PIGGY IV ×3 (06:44→22:55)
--- NOTE | 2018-04-11 06:50 | PC.NURSE ---
NOC Shift: Pt. POD 2 bowel resection. AAOx3, pleasant. VSS, SR on tele. Remains NPO w/NG to LIS, scant amt. drainage. Midline ABD dsg CDI, ostomy stoma WNL scant amts of brown stool noted in bag. No audible BT's. Denies pain, however some nausea may be from pain, pt is somewhat stoic to pain, states not wanting to use much pain medication. Montejo. Plan to start TPN today. Encourage pulmonary toilet today to wean off O2. Poor IS effort. Cont. ICU care.
[2018-04-11] MEDS: ENOXAPARIN 30 MG/0.3 ML SYRINGE SUBCUT (07:41)
[2018-04-11] MEDS: PANTOPRAZOLE 40 MG VIAL IV (07:41)
--- NOTE | 2018-04-11 08:22 | P.PN_ITS ---
Subjective Date Patient Seen: 04/11/18 Time Patient Seen: 08:16 Interval history: Denies any significant pain. Rates her current pain on a scale of 1-10 is only a 1. Denies chest pain or shortness of breath. No wheezing. Feel subjectively distended with intermittent mild nausea only. No vomiting. No subjective fever or chills. Exam Vital Signs (past 8 hours): - 04/11/18 02:20 04/11/18 03:54 04/11/18 03:58 Temperature 97.7 F Pulse Rate 82 Respiratory Rate 13 Blood Pressure 112/67 Pulse Oximetry 96 97 96 04/11/18 07:31 Temperature 98.5 F Pulse Rate 76 Respiratory Rate 16 Blood Pressure 118/60 Pulse Oximetry 97 Fraction of Inspired Oxygen 50 Oxygen Delivery Method Nasal Cannula Oxygen Flow Rate 2 Narrative Exam Narrative: Patient seen and examined with the assistance of the attending nurse, Griselda Guzman Patient resting comfortably in bed in no acute distress. Alert oriented x3. She is in good spirits this morning. Nasogastric tube is in place draining bilious fluid only. Output has been relatively minimal however. Chest clear to auscultation bilaterally with regular rate and rhythm. No murmurs , gallops, rubs. No crackles or wheezes. Abdomen is soft but mildly distended and tympanitic. Rare bowel sound. She is appropriately tender to palpation with no guarding or rebound. Colostomy is edematous but otherwise read and viable. No gas or stool in the appliance. Incision is clean, dry, and intact without erythema, ecchymosis, or drainage. Mejia-Chan drain site is clean. Bulb is collecting serosanguineous fluid only. No pus. Output is declining. Extremities show no clubbing, cyanosis, or edema Objective Labs Result Diagrams: 04/10/18 04:59 04/10/18 04:59 Labs: No new laboratory or radiographic studies for review today. Chest x-ray after PICC line placement is reviewed and shows the line to be in good position with no pulmonary infiltrates. Fluid cultures from the time of surgery show E coli sensitive to all antibiotics. Final anaerobic cultures are still pending. Assessment & Plan Plan: Assessment/Plan Narrative: 78-year-old female doing well postoperative day 2 after emergency laparotomy with colon resection and diverting colostomy secondary to perforated diverticulitis. She has no signs of evolving sepsis or uncontrolled infection at this time. Pulmonary status is stable. Continue aggressive pulmonary toilet with incentive spirometry, deep breathing, and cough. Will consult Physical therapy today for mobilization. Out of bed as much as possible. Continue Montejo catheter for another day or so as her urine output had been marginal up until this morning. Once she is more mobile then move to discontinue the catheter at that time. Begin TPN and lipids today. We will slow her IV fluids currently with total IV fluids to be at 100 cc/hour once TPN has started. Continue nasogastric tube until ileus is resolved. I anticipate she will have somewhat of a prolonged ileus given the significant amount of inflammation and infection in the abdomen at surgery. Continue intravenous antibiotics consisting of Zosyn, Flagyl, and Diflucan. I suspect she will need at least a 7-10 day course of antibiotics. Repeat laboratory studies tomorrow to check electrolytes, and begin sliding scale insulin every 6 hr today. Awaiting enterostomal therapy evaluation for stoma education. I discussed this with the patient today. All questions were answered to her satisfaction, and she voiced understanding. Orders were written.
[2018-04-11] MEDS: HYDROMORPHONE 1 MG INJ IV ×2 (09:06)
--- NOTE | 2018-04-11 11:35 | PT.IIE ---
Current Diagnoses Chronic or unspecified gastric ulcer with perforation (04/08/18) Surgery Performed Operation Date: 04/09/18 14:30 Actual Procedures p Exploratory Laparotomy GEN, partial sigmoid colectomy, diverting colostomy - Rohith Terrell MD Medical History (Last Updated 04/08/18 @ 13:09 by Vivien Velazquez RN) TIA (transient ischemic attack) (Acute) Physical Therapy Inpatient Evaluation/Re-Eval M1 PT/OT-IP Prior Functional Status Start: 04/11/18 12:37 Freq: NEEDED Status: Active Protocol: Document 04/11/18 11:35 AB (Rec: 04/11/18 12:49 AB [id number]) Medical Review Prior Functional Status Medical History Reviewed Yes Communication able to make needs known Mobility and Gait stated that she is independent with all mobilities and ambulation without AD. was able to drive prior to hospitalization Social History Household Members spouse Living Arrangements House Number of Floors (Floors) Two Floors Number of Stairs To Enter/Railing? pt stays on main level and does not have steps to enter Home Environment Standard Height Toilet Walk in Shower Home Equipment Manual Wheelchair Employment Status Retired Additional Social History Comment pt stated that she has 2 suctioned handle bars that she can put in to use in the shower M2 PT-IP Current Condition Start: 04/11/18 12:37 Freq: NEEDED Status: Active Protocol: Document 04/11/18 11:35 AB (Rec: 04/11/18 12:49 AB [id number]) Physical Therapy Current Condition Current Condition Evaluation Date 04/11/18 Treatment Diagnosis perforated viscera s/p laparotomy/colectomy; generalized weakness Onset Date 04/08/18 Precautions Abdominal Surgery Precautions Log Roll Lifting Restrictions Gait Belt above Incisional Area Other Precautions O2 sat on 1L/min at this time abdominal drain nasal tube and IV line/picc lines M3 PT-IP Subjective Start: 04/11/18 12:37 Freq: NEEDED Status: Active Protocol: Document 04/11/18 11:35 AB (Rec: 04/11/18 12:49 AB [id number]) Subjective Physical Therapy Visit Type Type Initial Evaluation Visit Start Time 11:35 Visit Stop Time 12:31 Total Visit Minutes 56 Number of ASSISTANT CENTER MANAGER Visits 0 Physical Therapy Visit Comments Patient Comments pt agreeable to do PT Therapy Pain Assessment Pain When Pain Assessed At Rest Pain Present Pain Present Pain Reported Location Right Lower Abdomen Scale Used pain scale not stated M4 PT-IP Mobility and Gait Start: 04/11/18 12:37 Freq: NEEDED Status: Active Protocol: Document 04/11/18 11:35 AB (Rec: 04/11/18 12:49 AB [id number]) PT-Bed Mobility Assessment Supine to Sit Supine to Sit Minimal Assistance 1 Person Assistance Head of Bed Elevated Bedrails Scooting Scooting Up and Down in Bed Moderate Assistance PT-Transfer Assessment Sit to and From Stand Sit to and from Stand Moderate Assistance 1 Person Assistance Equipment Transfer Assistive Device Gait Belt Front Wheeled Walker Orthotic/Prosthetic Devices or Brace: No Transfers Transfer Destination Bed Transfer Technique Stand Step Pivot Transfer Ability Level of Assist Moderate Assistance 1 Person Assistance Use of Upper Extremities Gait Assessment Gait Gait Assistance Required: Moderate Assistance Distance (Feet) 8 Able to Maintain Weight Bearing Status Yes During Gait Assistive Devices Assistive Device Gait Belt Front Wheeled Walker Orthotic/Prosthetic Devices or Brace: No Gait Deviations General Gait Pattern Decreased Stride Length Decreased Feet Clearance Flexed Trunk Factors Limiting Gait Function Factors Limiting Gait Function Decreased Activity Tolerance Decreased Strength Limited Range of Motion Pain Poor Balance Poor Safety Awareness PT-Balance Assessment Sitting Balance and Reactions Static Sitting Balance Ability Good Dynamic Sitting Balance Ability Fair Standing Balance and Reactions Static Standing Balance Ability Fair Dynamic Standing Balance Ability Poor Device Used FWW M5 PT-IP Objective Assessments Start: 04/11/18 12:37 Freq: NEEDED Status: Active Protocol: Document 04/11/18 11:35 AB (Rec: 04/11/18 12:49 AB [id number]) Orientation Orientation/Cognition Level of Alertness Alert Orientation Name Age Birthday Month Date Year Day of Week Place Situation Safety Awareness Decreased Safety Awareness Memory Description Short Term Impaired Gross Range of Motion Lower Extremity ROM Assessment Within Functional Limits Strength Lower Extremity Strength Assessment Bilaterally Impaired Hip 4-/5 Knee 4-/5 M6 PT-IP Treatment Start: 04/11/18 12:37 Freq: NEEDED Status: Active Protocol: Document 04/11/18 11:35 AB (Rec: 04/11/18 12:49 AB [id number]) Physical Therapy Treatment Education Education Provided Precautions Safety M7 PT-IP Assessment and Plan Start: 04/11/18 12:37 Freq: NEEDED Status: Active Protocol: Document 04/11/18 11:35 AB (Rec: 04/11/18 12:49 AB [id number]) PT Summary Assessment and Plan Potential Rehabilitation Potential Good Status of Condition at Evaluation Evolving Summary Impairments Pain ROM Strength Balance Sensation Cognition Bed Mobility Transfers Gait Activity Tolerance Assessment Summary pt requiring mod A with mobility and presents with decrease activity tolerance affecting function. pt will likely progress during hospital stay. d/c plan depending on progress and if spouse will be able to assist pt at home. pt may also need homehealth services if pt is going home. Goals Bed Mobility Goal Standby Assistance Transfer Goal Standby Assistance Gait Goal Standby Assistance Gait Distance 150 Days to Meet Goals 5 Frequency of Treatment Frequency Of Treatment Once a Day Treatment Plan Physical Therapy Treatment Plan Bed Mobility Training Transfer Training Gait Training Therapeutic Exercise Balance Retraining Post Op Education Discharge Planning Hot or Cold Pack Neuromuscular Re-ed Coordination Retraining Manual Therapy Other Recommendations and Next Treatment ambulation; log roll bed Focus mobility Recommendations To Nursing Amount of Assist Needed 1 Person Assist Discharge Recommendations PT Discharge Recommendations Home with 13/02 Assist Home Health SNF Rehab
[2018-04-11] MEDS: LACTATED RINGERS 1,000 ML 100 ML IV (12:28)
--- NOTE | 2018-04-11 14:47 | CM.DPC ---
Addendum entered by Sapna Stringer LPN 04/11/18 15:01: clarification: pt is post op day 2. Original Note: DCP: continued: Met with pt and her after EMR review and discussion of POC in morning Team Rounds. Pt is one day post op: emergent Laparotomoy with a partial bowel resection and diverting colostomy (and plan for take down later after colon heals). NG to suction is in place, TPN running. PT has worked with pt for the first time today. Have obtained an OT order now that pt is ok'd to begin mobilizing. Ostomy specialist Diamond Weaver or a partner will be working with pt for appliance fittings and teach, per Dr. Terrell. Discussed this with pt and her . Pt was functionally independent in community prior to this surgery. She and her both drive. P: d/c disposition at this point is unclear. Brief discussion of options under Medicare and including the HH RN in tandem with ostomy nurse followup at the [facility] clinic vs an initial rehab/recovery stay in a snf setting. (PT Betty today mentions all as options). It is early in the process. Explained to both that the dc planning team would be following along, taking direction from the surgical team and looking at input from care team members as well as ultimately what best suits pt and her .
--- NOTE | 2018-04-11 17:20 | PC.NURSE ---
Wound Ostomy Nurse Consult Note Sarita sitting up in bed awake and alert. States she feels a little congested and coughed up some sputum which helped her feel less congested. Her stoma is edematous, moist and red. There is a small amount of liquid effluent, no gas. Her appliance is intact. I gave Sarita the [employer] New Colostomy brochure, which she is thankful to have. I explained that I will be teaching her and her how to care for her stoma and how to change her ostomy appliance. She was very receptive towards the teaching. We did discuss nutrition as she also has concerns and was wondering what she could do at home to help increase her protein intact. I explained that the transportation aide will most likely come in to speak to her about her calorie intake. We also discussed discharge planning. She lives in two story house, but the lower level is the basement, which is her husbands office. She enters the house on the main level. She has a bathroom with a walk in shower. She stated that Sapna, Care Management has already been by to discuss after hospital care. Kitty has an NG tube in place. Her BOO drain is draining serosanguenous drainage and a enriquez cath. I will return tomorrow to continue ostomy teaching.
[2018-04-11] MEDS: FAT EMULSIONS 50 GM/250 ML EMULSION IV (18:15)
[2018-04-11] MEDS: AA 5 %/CALCIUM/LYTES/DEXT 20 % 1,000 ML with POTASSIUM CHLORIDE 20 MEQ, MULTIVITAMIN 10... 42.667 ML IV (18:15)
[2018-04-11] MEDS: FLUCONAZOLE 200 MG/100 ML PIGGYBACK 100 MG IV (18:16)
--- NOTE | 2018-04-11 21:15 | PC.NURSE ---
2044 - Pt resting quietly in bed. Reinforcing I.S. education and discussing pain control. Monitor displayed a brief run of SVT, rate 160's. Pt asymptomatic. See chart. Pt reposition self independently in bed. Denies pain at rest. Urine output approximately 200cc at this time. Dr. Terrell notified of SVT and current urine output. No new orders.
[2018-04-12] VITALS (13 sets, daily range): BP systolic 116–151; BP diastolic 66–83; PULSE 73–128; RESP 14–17; TEMP 36.2–37.4; O2SAT 87–98
[2018-04-12] MEDS: metroNIDAZOLE 500 MG/100 ML PIGGYBACK 100 MG IV ×3 (00:41→17:35)
[2018-04-12] MEDS: INSULIN ASPART 100 UNIT/ML INSULN PEN SUBCUT ×4 (00:42→19:40)
[2018-04-12 04:54] LABS: Add Manual Diff / Slide Review NO; Basophils Percent Auto 0.3 % (0-2); Eosinophils Percent Auto 0.1 % (2-4); Hematocrit 32.3 % (36-46); Hemoglobin 10.8 g/dL (12.0-16.0); Mean Corpuscular HGB Conc 33.4 % (30-36); Mean Corpuscular Hemoglobin 30.1 PG (26-34); Mean Corpuscular Volume 90.2 fL (80-100); Monocytes Percent Auto 4.8 % (3-14); Neutrophils Absolute Auto 8800 /uL (3000-5900); Neutrophils Percent Auto 84.8 % (50-75); Platelet Count 174 X10^3/uL (150-400); Red Blood Cell Count 3.58 X10^6/uL (4.0-5.2); Red Cell Distribution Width 13.1 % (11.6-14.8); White Blood Cell Count 10.3 X10^3/uL (4.5-11.0)
[2018-04-12 05:04] LABS: BUN Creatinine Ratio 28.6 (6-22); Blood Urea Nitrogen 20 mg/dL (7-17); Calcium 7.9 mg/dL (8.4-10.2); Carbon Dioxide 34 mmol/L (22-32); Chloride 103 mmol/L (98-107); Estimated Glomerular Filt Rate > 60.0 mL/min (>60); Glucose 191 mg/dL (80-110); HEMOLYSIS 31 (0-50); Phosphorous 1.8 mg/dL (2.8-4.1); Potassium 3.7 mmol/L (3.4-5.1); Sodium 140 mmol/L (137-145)
--- NOTE | 2018-04-12 05:18 | DI.RAD.S_ITS ---
PROCEDURE: XR CHEST 1V INDICATIONS: Cardiac rhythm change post op Small bowel obstruction TECHNIQUE: One view of the chest was acquired. COMPARISON: [facility], CR, CHEST 2 VIEW, 08/18/2009, 13:17. [facility], CR, XR CHEST 1V, 04/09/2018, 18:23. [facility], CR, XR CHEST FOR PICC 1V, 04/10/2018, 10:20. FINDINGS: Surgical changes and devices: A gastric tube is seen, with the tip not visible, yet traversing below the level of the diaphragm. A left-sided PICC line is seen, the tip overlying the superior aspect of the superior vena cava. Lungs and pleura: There is mild blunting of the left costophrenic angle. The lungs are hyperexpanded. No pneumothorax can be seen. Mediastinum: Mediastinal contours appear normal. Heart size is normal. Bones and chest wall: Age-appropriate bony degenerative changes are seen. No suspicious bony lesions. Overlying soft tissues appear unremarkable. IMPRESSION: Small left-sided pleural effusion. Stable left-sided PICC line. Hyperexpanded lungs. Dictated by: Trevon Coffey M.D. on 04/12/2018 at 8:01 Approved by: Trevon Coffey M.D. on 04/12/2018 at 8:03
[2018-04-12 05:27] LABS: Creatine Kinase 391 U/L (30-135)
[2018-04-12 05:45] LABS: Troponin I < 0.012 ng/mL (0.01-0.034)
[2018-04-12] MEDS: LABETALOL 100 MG/20ML MDV 10 MG IV (06:08)
[2018-04-12] MEDS: PIPERACILLIN-TAZO 3.375 GM/50 ML FROZ.PIGGY IV ×3 (06:11→22:44)
--- NOTE | 2018-04-12 06:53 | PC.NURSE ---
NOC Shift: Pt POD 3 SBO resection. Pt had sudden spontaneous cardiac rythm change this AM at 0426 of Afib RVR with rate 125 to 130. Pt sleeping at the time, VSS. 12 Lead EKG obtained to verify rythm and confirmed AFib RVR. Pt w/o known history of Afib. AM labs drawn STAT to check Mag, phos, K levels. Pt denies chest pain, SOB discomfort. Does not feel heart rate. Dr. Terrell notified of rythm change and lab results. Orders received for chest xray, troponin cardiac panel and labetolol IVP to be given. Continue to monitor.
[2018-04-12] MEDS: HYDROMORPHONE 1 MG INJ IV ×2 (08:07→12:00)
[2018-04-12] MEDS: ENOXAPARIN 30 MG/0.3 ML SYRINGE SUBCUT (09:05)
[2018-04-12] MEDS: PANTOPRAZOLE 40 MG VIAL IV (09:05)
--- NOTE | 2018-04-12 09:09 | DIET.PN ---
Started TPN yesterday: E Clinimix 12/10 @approx 1000ml daily Provides 900 kcal, 52g protein, 200g dextrose. Estimate w/propofol lipid kcals, meeting 80% estimate energy needs at this time. Weight up 6kg since admit. Suggest increase TPN to 1500ml daily to meet nutritional needs
--- NOTE | 2018-04-12 09:11 | P.PN_ITS ---
Subjective Date Patient Seen: 04/12/18 Time Patient Seen: 09:04 Interval history: Mild incisional pain but well controlled with intermittent doses of intravenous Dilaudid. Denies chest pain or shortness of breath. She had an episode of rapid atrial fibrillation early this morning which converted with intravenous labetalol. She has no history of cardiac issues, including arrhythmias of any kind. Denies nausea or vomiting. Feels that her bowels are beginning to move a bit, but no significant crampy abdominal pain. Exam Vital Signs (past 8 hours): - 04/12/18 03:54 04/12/18 04:30 04/12/18 05:06 Temperature 98.9 F Pulse Rate 75 128 H Respiratory Rate 14 15 Blood Pressure 151/73 H 132/83 Pulse Oximetry 94 91 90 L 04/12/18 05:56 04/12/18 06:30 04/12/18 07:45 Temperature 98.6 F Pulse Rate 84 80 Respiratory Rate 16 15 Blood Pressure 116/67 121/74 Pulse Oximetry 95 95 97 Fraction of Inspired Oxygen 50 Oxygen Delivery Method Nasal Cannula Oxygen Flow Rate 2 Narrative Exam Narrative: Thin female resting comfortably in bed in no acute distress. Alert oriented x3. Her is at the bedside during my entire visit. Nasogastric tube is in place draining bile tinged fluid. Output is only been approximately 150 cc over the last shift or 2. Chest is clear to auscultation with no crackles or wheezes. Breath sounds are somewhat diminished and distant in bilateral bases consistent with COPD. Has a moderate cough effort which is nonproductive at this time. Currently she is in a regular rate rhythm. Monitor shows sinus rhythm at 80-85 beats per minute. Urine output was approximately 600-650 cc over the last 24 hr. Urine is clear. Montejo catheter remains in place. Abdomen is soft and minimally distended. Dressing is clean, dry, and intact. Few hypoactive bowel sounds. She is appropriately tender. No guarding or rebound. Colostomy is edematous but well perfused and red. There is actually air filling the entire appliance this morning. No stool. Extremities show no clubbing, cyanosis, or edema Objective Labs Result Diagrams: 04/12/18 04:45 04/12/18 04:45 Labs: Laboratory Results - last 24 hr 04/12/18 04/12/18 04/12/18 04:45 04:45 04:45 WBC 10.3 RBC 3.58 L Hgb 10.8 L Hct 32.3 L MCV 90.2 MCH 30.1 MCHC 33.4 RDW 13.1 Plt Count 174 Neut % (Auto) 84.8 H Lymph % (Auto) 10.0 L [place] % (Auto) 4.8 Eos % (Auto) 0.1 L Baso % (Auto) 0.3 Neut # (Auto) 8800 H Sodium 140 Potassium 3.7 Chloride 103 Carbon Dioxide 34 H BUN 20 H Creatinine 0.70 Estimated GFR > 60.0 BUN/Creatinine Ratio 28.6 H Glucose 191 H Calcium 7.9 L Phosphorus 1.8 L Magnesium 2.0 Total Creatine Kinase 391 H CK-MB (CK-2) 3.90 H CK-MB (CK-2) Rel Index 1.0 L Troponin I < 0.012 Assessment & Plan Plan: Assessment/Plan Narrative: 78-year-old female postoperative day 3 from emergency laparotomy with sigmoid colectomy and diverting colostomy secondary to perforated diverticulitis and pelvic abscess who is overall doing quite well. Her Mejia-Chan drain in the pelvis is draining serosanguineous fluid only. We will continue the drain for now until she has return of normal bowel function and otherwise stable. Clamp NG tube for a trial today. Possibly discontinue the tube tonight or tomorrow morning if she tolerates clamping. She is having some evidence of bowel function with air in the appliance. Continue to monitor. Appreciate enterostomal therapy consultation. We will maintain her in the ICU for now on cardiac monitoring as she may require further intervention for her atrial fibrillation, which I suspect was a result of fluid shifts versus mild electrolyte disturbances. She has no evidence of myocardial infarction or other acute event by EKG or cardiac enzymes this morning. Chest x-ray showed no infiltrates or other significant abnormalities including pneumothorax or significant effusions. Continue TPN and lipids but slow the IV fluids for a total rate of approximately 65 cc/hour. I do not believe she warrants diuresis at this time, and we will continue to allow her to mobilize fluid normally. Discontinue Montejo catheter. Out of bed with aggressive ambulation. Appreciate physical therapy evaluation. Again I strongly encouraged pulmonary toilet, coughing, and incentive spirometry. Continue intravenous antibiotics and Diflucan currently for peritonitis and pelvic abscess. All questions were answered to her satisfaction, and she voiced understanding. Case discussed with the attending nurse this morning. Orders written.
[2018-04-12] MEDS: SODIUM CHLORIDE 0.9% 500 ML 21 ML IV (09:53)
--- NOTE | 2018-04-12 10:35 | PT.IPTN ---
Current Diagnoses Chronic or unspecified gastric ulcer with perforation (04/08/18) Surgery Performed Operation Date: 04/09/18 14:30 Actual Procedures p Exploratory Laparotomy GEN, partial sigmoid colectomy, diverting colostomy - Rohith Terrell MD Physical Therapy Treatment Note M2 PT-IP Current Condition Start: 04/11/18 12:37 Freq: NEEDED Status: Active Protocol: Document 04/11/18 11:35 AB (Rec: 04/11/18 12:49 AB [id number]) Physical Therapy Current Condition Current Condition Evaluation Date 04/11/18 Treatment Diagnosis perforated viscera s/p laparotomy/colectomy; generalized weakness Onset Date 04/08/18 Precautions Abdominal Surgery Precautions Log Roll Lifting Restrictions Gait Belt above Incisional Area Other Precautions O2 sat on 1L/min at this time abdominal drain nasal tube and IV line/picc lines M3 PT-IP Subjective Start: 04/11/18 12:37 Freq: NEEDED Status: Active Protocol: Document 04/12/18 10:35 AB (Rec: 04/12/18 12:50 AB [id number]) Subjective Physical Therapy Visit Type Type Treatment Note Visit Start Time 10:35 Visit Stop Time 11:02 Total Visit Minutes 27 Number of ELEMENTARY SCHOOL SOCIAL WORKER Visits 0 Physical Therapy Visit Comments Patient Comments pt agreeable to get out of bed M4 PT-IP Mobility and Gait Start: 04/11/18 12:37 Freq: NEEDED Status: Active Protocol: Document 04/12/18 10:35 AB (Rec: 04/12/18 12:50 AB [id number]) PT-Bed Mobility Assessment Rolling Type of Rolling Log Rolling Level of Assist Minimal Assistance 1 Person Assistance Supine to Sit Supine to Sit Minimal Assistance 1 Person Assistance Bedrails PT-Transfer Assessment Sit to and From Stand Sit to and from Stand Minimal Assistance Equipment Transfer Assistive Device Gait Belt Front Wheeled Walker Orthotic/Prosthetic Devices or Brace: No Gait Assessment Gait Gait Assistance Required: Minimum Assistance Moderate Assistance Distance (Feet) 5 Able to Maintain Weight Bearing Status Yes During Gait Assistive Devices Assistive Device Gait Belt Front Wheeled Walker Gait Deviations General Gait Pattern Decreased Stride Length Decreased Feet Clearance Factors Limiting Gait Function Factors Limiting Gait Function Decreased Activity Tolerance Decreased Strength Poor Balance Poor Safety Awareness Comments Gait Comments pt with c/o increae nausea and has to sit down after 5 ft of ambulation and unable to tolerate much activity afterwards. pt agreed to stay up on chair. positioned pt on chair with table and call light within reach. informed nurse regarding pt's mobility and c/o nausea. M5 PT-IP Objective Assessments Start: 04/11/18 12:37 Freq: NEEDED Status: Active Protocol: Document 04/11/18 11:35 AB (Rec: 04/11/18 12:49 AB [id number]) Orientation Orientation/Cognition Level of Alertness Alert Orientation Name Age Birthday Month Date Year Day of Week Place Situation Safety Awareness Decreased Safety Awareness Memory Description Short Term Impaired Gross Range of Motion Lower Extremity ROM Assessment Within Functional Limits Strength Lower Extremity Strength Assessment Bilaterally Impaired Hip 4-/5 Knee 4-/5 M6 PT-IP Treatment Start: 04/11/18 12:37 Freq: NEEDED Status: Active Protocol: Document 04/12/18 10:35 AB (Rec: 04/12/18 12:50 AB [id number]) Physical Therapy Treatment Education Education Provided Precautions Safety M7 PT-IP Assessment and Plan Start: 04/11/18 12:37 Freq: NEEDED Status: Active Protocol: Document 04/12/18 10:35 AB (Rec: 04/12/18 12:50 AB [id number]) PT Summary Assessment and Plan Summary Impairments Pain Strength Balance Coordination Bed Mobility Transfers Gait Activity Tolerance Progress Towards Goals Slow Progress due to Medical Issues Slow Progress due to Activity Tolerance Assessment Summary pt requring one person assist with mobility and continues to present with decreae activity tolerance with c/o increase nausea with activity limiting function. At this time, pt will require SNF rehab to improve strength and functional independence. Goals Bed Mobility Goal Standby Assistance Transfer Goal Standby Assistance Gait Goal Standby Assistance Gait Distance 150 Days to Meet Goals 5 Frequency of Treatment Frequency Of Treatment Once a Day Treatment Plan Physical Therapy Treatment Plan Bed Mobility Training Transfer Training Gait Training Therapeutic Exercise Balance Retraining Post Op Education Discharge Planning Hot or Cold Pack Neuromuscular Re-ed Coordination Retraining Manual Therapy Other Recommendations and Next Treatment ambulation; log roll bed Focus mobility Recommendations To Nursing Amount of Assist Needed 1 Person Assist Discharge Recommendations PT Discharge Recommendations Home with 24/ Assist Home Health SNF Rehab
[2018-04-12] MEDS: ONDANSETRON 4 MG/2 ML INJ IV ×2 (11:15→18:16)
--- NOTE | 2018-04-12 13:06 | PC.NURSE ---
pt hallucinating with iv dilaudid- she reports not being frightened by these and understands it is probably from iv medication- ngt clamped from [id number], [place] [id number] am will attempt to clamp later this shift as well- minimal ambulation noted with pt-ot to assess later this afternoon
--- NOTE | 2018-04-12 14:10 | OT.IP.EVAL ---
Current Diagnoses Chronic or unspecified gastric ulcer with perforation (04/08/18) Surgery Performed Operation Date: 04/09/18 14:30 Actual Procedures p Exploratory Laparotomy GEN, partial sigmoid colectomy, diverting colostomy - Rohith Terrell MD Past Medical History (Last Updated 04/08/18 @ 13:09 by Vivien Velazquez RN) TIA (transient ischemic attack) (Acute) Occupational Therapy Inpatient Evaluation/Re-Eval M1 PT/OT-IP Prior Functional Status Start: 04/11/18 12:37 Freq: NEEDED Status: Active Protocol: Document 04/12/18 14:10 PJM (Rec: 04/12/18 15:40 [facility] [id number]) Medical Review Prior Functional Status Medical History Reviewed Yes Diet/Fluid Consistency Regular Communication WNL Mobility and Gait Pt stated that she is independent with all mobilities and ambulation without AD. Pt has manual w/c which she uses for long distances in the community due to exertional asthma. Activities of Daily Living and IADL's Pt was indep with all self care and did cooking, shopping , laundry, driving. does cleaning. Pt did not take any prescription meds prior to admit; prefers natural supplements. manages finances. Prior Functional Level (Other details) Supportive, capable can provide 24 hr assist after d/c. Social History Household Members spouse Living Arrangements House Number of Floors (Floors) Two Floors Number of Stairs To Enter/Railing? pt stays on main level and does not have stairs to enter Home Environment Standard Height Toilet Walk in Shower Home Equipment Manual Wheelchair Employment Status Retired Additional Social History Comment pt stated that she has 2 suction grab bars that she can put use in the shower M2 OT-IP Current Condition Start: 04/12/18 15:21 Freq: Status: Active Protocol: Document 04/12/18 14:10 PJM (Rec: 04/12/18 15:40 [facility] [id number]) Occupational Therapy Current Condition Current Condition Evaluation Date 04/12/18 Treatment Diagnosis decreased self care, mobility, s/p ex lap 04/09/18 for ex lap for perf colon Diagnosis Onset Date 04/08/17 Post Operative Precautions Abdominal Surgery Precautions Log Roll Lifting Restrictions Gait Belt above Incisional Area Other Precautions O2 sat on 1L/min at this time abdominal drain, new colostomy gastric suction tube and IV line/picc lines M3 OT- IP Subjective and Pain Start: 04/12/18 15:21 Freq: Status: Active Protocol: Document 04/12/18 14:10 PJM (Rec: 04/12/18 15:40 [facility] [id number]) OT- Subjective Occupational Therapy Visit Type Type Initial Evaluation Visit Start Time 13:43 Visit Stop Time 14:10 Total Visit Minutes 27 Occupational Therapy Visit Comments Patient Comments I can't wait to get this tube out of my nose. Patient/Caregiver Goals to go home OT Pain Assessment Pain When Pain Assessed After Treatment Pain Present Pain Present Pain Reported Location Right Lower Abdomen Intensity 1 Scale Used Numeric (1 - 10) Description Aching Acute Management Techniques Distraction Timing of Activity with Medications M4 OT- IP ADL's Start: 04/12/18 15:21 Freq: Status: Active Protocol: Document 04/12/18 14:10 PJM (Rec: 04/12/18 15:40 [facility] [id number]) OT EOB-Nxzo-Mruenhs General Evaluation Diet Level for Self-Feeding NPO except for ice chips due to post op ileus OT ADL-Grooming General Evaluation Grooming Ability Minimal Assistance Areas Needing Assistance Retrieving/Set-up of Grooming Items Combing/Brushing Hair Face Washing Comments OT Grooming Comments seated in chair OT ADL-Oral Care Comments Oral Care Comments to be assessed OT ADL-Dressing General Eval Upper Body Dressing Ability Moderate Assistance Lower Body Dressing Ability Maximum Assistance Assistive Devices Dressing Assistive Devices Engineer Second Assistant Comments OT Dressing Comments moderate assist with gown due to multiple lines/tubes OT ADL-Toileting General Evaluation Toileting Ability Total Assistance Areas Needing Assistance Empty Catheter or Colostomy Perform Perineal Hygiene Comments OT Toileting Comments pt has enriquez and new colostomy OT ADL-Bathing Comments OT Bathing Comments to be assessed as activity tolerance improves. Provided education to pt/ re: bathroom safety equipment options and resources. M5 OT- IP IADL's Start: 04/12/18 15:21 Freq: Status: Active Protocol: Document 04/12/18 14:10 PJM (Rec: 04/12/18 15:40 [facility] [id number]) OT-Instrumental Activities of Daily Living Deficits IADL Deficits Identified Deficits Home Safety Awareness Awareness of Need for Assistance at Home Good Awareness Ability to Problem Solve Emergency Able to Problem Solve Situations Medication Management Medication Management No Deficits Identified Money Management Money Management Caregiver Provides Assistance Meal Preparation Meal Preparation Caregiver Provides Assist Meal Preparation Comments to assist until pt able Childcare Center Administrator Childcare Center Administrator Caregiver Provides Assist Childcare Center Administrator Comments normally does cleaning Driving Driving Caregiver Provides Assist Driving Comments to assist until pt able M6 OT- IP Functional Cognition Start: 04/12/18 15:21 Freq: Status: Active Protocol: Document 04/12/18 14:10 PJM (Rec: 04/12/18 15:40 PJ [id number]) Cognitive Factors Limiting Selfcare Function Cognitive Ability Level of Alertness Drowsy Patient Orientation Name Age Birthday Month Date Year Day of Week Place Situation Attention Span Ability Capable of Focused Attention Ability to Follow Commands Able to Follow One Step Commands Cognitive Comments Cognitive Assessment Comments Pt mildly drowsy but oriented and motivated to regain strength and independence. OT- Vision and Hearing OT- Hearing Assessment OT- Hearing Assessment WFL OT- Vision Assessment Visual Acuity Glasses All The Time Vision Assessment Comments Pt reports she has migraines which cause transient R field deficit. M7 OT- IP Mobility and Balance Start: 04/12/18 15:21 Freq: Status: Active Protocol: Document 04/12/18 14:10 PJM (Rec: 04/12/18 15:40 PJ [id number]) OT-Transfer Assessment Comments Mobility Comments Pt seen up in chair this session. See P.T. notes. OT- Gait Assessment Comments Gait Ability Comments Pt seen up in chair this session. See P.T. notes. OT- Balance Assessment Comments Other Balance Tests/Deviations/Treatment Pt seen up in chair this : session. See P.T. notes. M8 OT- IP Objective Assessments Start: 04/12/18 15:21 Freq: Status: Active Protocol: Document 04/12/18 14:10 PJM (Rec: 04/12/18 15:40 [facility] [id number]) OT Gross Range of Motion Upper Extremity Range of Motion Assessment Within Functional Limits OT Strength Upper Extremity Strength Assessment Within Functional Limits OT- Coordination Assessment Comments Coordination Comments BUE WFL OT-Muscle Tone Assessment Muscle Tone WNL Yes OT Sensation Assessment Comments Summary Comments BUE WNL per pt M9 OT- IP Assessment and Plan Start: 04/12/18 15:21 Freq: Status: Active Protocol: Document 04/12/18 14:10 PJM (Rec: 04/12/18 15:40 PJ [id number]) OT Summary Assessment and Plan Potential Rehabilitation Potential Good Analytic Complexity at Evaluation Moderate Summary OT Impairments Pain Strength Balance Functional Mobility Grooming Dressing Toileting Bathing Toilet Transfers Shower Transfers Assessment Summary Moderate complexity OT assessment due to ICU status with multiple lines including NG suction and new colostomy, abdominal incision with drains. Pt alert and oriented but drowsy this session. She has performance deficits in activity tolerance, all functional mobility/transfers, standing grooming, dressing, bathing, toileting. Supportive, capable here this session and can provide 24 hr assist at d/c. Pt/ prefer home d/c with services if pt continues to progress here. Goals Self-Feeding Goal Independent Grooming Goal Standby Assistance Dressing Goal Standby Assistance Toileting Goal Standby Assistance Bathing Goal Minimal Assistance Toilet Transfer Goal Standby Assistance Shower Transfer Goal Contact Guard Assistance Patient/Caregiver Education Goal Demonstrate Post-Op Precautions Demonstrate Energy Conservation and Pacing Caregiver Independent Assisting Patient OT-Other Goals grooming to be done standing at sink Days to Meet Goals 7 Frequency of Treatment Frequency Of Treatment Once a Day Treatment Plan OT Treatment Plan ADL Training Functional Mobility Patient/Family Education Discharge Planning Discharge Recommendations OT Discharge Recommendations Home with 13/02 Assist Home Health Other Discharge Recommendations vs SNF pending progress here Home Equipment Needs to be determined as pt progresses.
[2018-04-12] MEDS: POTASSIUM PHOSPHATE 15 MMOL in SODIUM CHLORIDE 0.9% 250 ML 42.5 ML IV (18:19)
[2018-04-12] MEDS: FAT EMULSIONS 50 GM/250 ML EMULSION IV (18:24)
[2018-04-12] MEDS: AA 5 %/CALCIUM/LYTES/DEXT 20 % 1,000 ML with MULTIVITAMIN 10 ML, TRACE ELEMENTS 1 ML, F... 42.667 ML IV (18:25)
[2018-04-12] MEDS: FLUCONAZOLE 200 MG/100 ML PIGGYBACK 100 MG IV (19:39)
[2018-04-12] MEDS: SODIUM CHLORIDE 0.9% 500 ML 125 ML IV (22:45)
--- NOTE | 2018-04-12 22:54 | PC.NURSE ---
tito note Pt up in chair until 20:00. Justo drain mostly full, and some serosanguinous fluid leaking from site. Drsg to Justo draina and midline abd changed due to partial saturation with serosanguinous fluid. Midline incision with jayne, well approximated, no s/s infection.. Pt c/o nausea. Spits out clear mucous. Did not hear whoosh very loud in epigastric area, so advanced NGT 3 cm.
[2018-04-13] VITALS (19 sets, daily range): BP systolic 134–185; BP diastolic 70–112; PULSE 69–88; RESP 11–20; TEMP 36.3–37.4; O2SAT 90–99
[2018-04-13] MEDS: metroNIDAZOLE 500 MG/100 ML PIGGYBACK 100 MG IV ×4 (00:02→23:56)
[2018-04-13] MEDS: INSULIN ASPART 100 UNIT/ML INSULN PEN SUBCUT ×4 (00:14→18:10)
[2018-04-13] MEDS: HYDROMORPHONE 1 MG INJ IV ×2 (00:23→05:22)
[2018-04-13] MEDS: SODIUM CHLORIDE 0.9% 500 ML 21 ML IV (04:28)
[2018-04-13] MEDS: ONDANSETRON 4 MG/2 ML INJ IV ×2 (05:21→10:23)
--- NOTE | 2018-04-13 05:28 | PC.NURSE ---
watch engineer: 0515 pt having increased abdominal pain that she descibes as dull, elevated BP and c/o mild nausea. Medicated with prn Dilaudid and Zofran. NG to LIS with clear yellow drainage. Ostomy putting out a small amount of liquid brown stool.
[2018-04-13] MEDS: PIPERACILLIN-TAZO 3.375 GM/50 ML FROZ.PIGGY IV ×3 (06:48→23:20)
[2018-04-13] MEDS: LORazepam 2 MG/ML SYRINGE 0.5 MG IV (08:35)
[2018-04-13] MEDS: FUROSEMIDE 20 MG/2 ML VIAL 10 MG IV (08:40)
--- NOTE | 2018-04-13 09:29 | P.PN_ITS ---
Subjective Date Patient Seen: 04/13/18 Time Patient Seen: 09:21 Interval history: Patient is simply not feeling well today. In fact she is rather anxious and feeling mildly short of breath. She has been having hallucinations intermittently, especially with Dilaudid. Her pain is not well controlled at this time either. In addition she is simply not sleeping well due to the hallucinations, discomfort, and routine care. Because of her current status she does not wish to be even moved out of bed. She feels nauseated intermittently although the nasogastric tube is functioning well. Exam Vital Signs (past 8 hours): - 04/13/18 04:24 04/13/18 05:00 04/13/18 05:54 Temperature 98.8 F Pulse Rate 79 83 74 Respiratory Rate 11 L 14 Blood Pressure 183/96 H 185/112 H 155/95 H Pulse Oximetry 96 97 04/13/18 06:00 Temperature Pulse Rate 80 Respiratory Rate 12 Blood Pressure 168/94 H Pulse Oximetry 99 Fraction of Inspired Oxygen 50 Oxygen Delivery Method Nasal Cannula Oxygen Flow Rate 1 Narrative Exam Narrative: Patient positions herself to sit completely upright in the bed. She appears anxious but cannot specifically tell me what her exact issue is at the moment. She does not appear acutely ill or with a an impending feeling of doom, but she clearly is somewhat agitated After sitting upright her heart rate increases to the upper 90s. However, telemetry shows sinus rhythm only. No acute changes. Urine output was marginal last night which responded to a 500 cc normal saline bolus. Her fluid positivity is at least 6 L at this time since surgery Chest is clear but breath sounds are diminished, especially at the bases bilaterally. No crackles. She is not wheezing currently. Saturations are 98% on 2 L nasal cannula oxygen. However the patient is somewhat tachypneic after sitting up. Blood pressure is normal but again she becomes hypertensive this morning at the time of my visit. Regular rate and rhythm Abdomen is soft and nondistended. She is appropriately tender. Wound is clean , dry, and intact. Ostomy is pink and viable with a small amount of liquid stool in the bag along with some air. Extremities show no clubbing, cyanosis, or significant edema Objective Labs Result Diagrams: 04/12/18 04:45 04/12/18 04:45 Labs: No new laboratory or radiographic studies for review today. Fingerstick blood sugars have been relatively well controlled on sliding scale insulin. She received a total of 18 units in the last 24 hours. Assessment & Plan Plan: Assessment/Plan Narrative: 78-year-old female postoperative day 4 from emergency laparotomy with sigmoid colectomy and descending end colostomy due to perforated diverticulitis and pelvic abscess who is not doing as well this morning as she was yesterday. Had a cannot identify a clear etiology of her issues other than perhaps anxiety, poor pain control, lack of sleep, and adverse effects including hallucinations from the narcotics. I do not see any evidence that would argue for pulmonary embolism, DVT, or acute cardiac event. She does not appear to have an acute asthma exacerbation, but we will treat her with a nebulizer currently. Maintain oxygen therapy. At this point I believe she could benefit from diuresis so intravenous Lasix has been ordered now. Small amount of Ativan as needed has also been ordered. Continue the Montejo catheter for now since we will begin Lasix. Try to minimize narcotic therapy. I have therefore consulted with the on-call anesthesiologist to consider epidural catheter placement. Lovenox has been placed on hold today in anticipation of epidural. Continue nasogastric tube although the output is somewhat minimal and she is beginning have a small amount of bowel function. I see no evidence of sepsis, and the Mejia-Chan drain is collecting serosanguineous fluid only. She remains afebrile with a normal white blood cell count yesterday. Continue intravenous antibiotics for the E coli. Repeat laboratory studies and chest x- ray tomorrow. TPN and lipids have been reordered. She is receiving minimal IV fluids at this point. I discussed all the above with the patient in detail. Case reviewed with the attending nurse. Orders written.
[2018-04-13] MEDS: PANTOPRAZOLE 40 MG VIAL IV (10:24)
--- NOTE | 2018-04-13 10:49 | CM.DPC ---
Patient not feeling well today. Anxious and c/o abdominal pain, elevated BP. NG is LIS, stomy putting out a small amount of liquid stool. Plan: Home with 24/7 care and HH vs SNF.
--- NOTE | 2018-04-13 11:35 | OT.IP.TRT ---
Current Diagnoses Chronic or unspecified gastric ulcer with perforation (04/08/18) Surgery Performed Operation Date: 04/09/18 14:30 Actual Procedures p Exploratory Laparotomy GEN, partial sigmoid colectomy, diverting colostomy - Rohith Terrell MD Occupational Therapy Treatment Note M2 OT-IP Current Condition Start: 04/12/18 15:21 Freq: Status: Active Protocol: Document 04/12/18 14:10 PJM (Rec: 04/12/18 15:40 PJM [id number]) Occupational Therapy Current Condition Current Condition Evaluation Date 04/12/18 Treatment Diagnosis decreased self care, mobility, s/p ex lap 04/09/18 for ex lap for perf colon Diagnosis Onset Date 04/08/17 Post Operative Precautions Abdominal Surgery Precautions Log Roll Lifting Restrictions Gait Belt above Incisional Area Other Precautions O2 sat on 1L/min at this time abdominal drain, new colostomy gastric suction tube and IV line/picc lines M3 OT- IP Subjective and Pain Start: 04/12/18 15:21 Freq: Status: Active Protocol: Document 04/13/18 11:34 CCC (Rec: 04/13/18 11:35 CCC [id number]) OT- Subjective Occupational Therapy Visit Type Type Patient Unavailable Notes Nursing requesting pt be seen in the PM due to pt did not sleep well last night. Therefore to see pt in PM for OT treatment.
--- NOTE | 2018-04-13 11:42 | PT.IPTN ---
Current Diagnoses Chronic or unspecified gastric ulcer with perforation (04/08/18) Surgery Performed Operation Date: 04/09/18 14:30 Actual Procedures p Exploratory Laparotomy GEN, partial sigmoid colectomy, diverting colostomy - Rohith Terrell MD Physical Therapy Treatment Note M2 PT-IP Current Condition Start: 04/11/18 12:37 Freq: NEEDED Status: Active Protocol: Document 04/11/18 11:35 AB (Rec: 04/11/18 12:49 AB [id number]) Physical Therapy Current Condition Current Condition Evaluation Date 04/11/18 Treatment Diagnosis perforated viscera s/p laparotomy/colectomy; generalized weakness Onset Date 04/08/18 Precautions Abdominal Surgery Precautions Log Roll Lifting Restrictions Gait Belt above Incisional Area Other Precautions O2 sat on 1L/min at this time abdominal drain nasal tube and IV line/picc lines M3 PT-IP Subjective Start: 04/11/18 12:37 Freq: NEEDED Status: Active Protocol: Document 04/13/18 09:41 GGD (Rec: 04/13/18 11:42 GGD [id number]) Subjective Physical Therapy Visit Type Notes Hold for AM per NSG. Other Recommendations and Next Treatment ambulation; log roll bed Focus mobility Recommendations To Nursing Amount of Assist Needed 1 Person Assist Discharge Recommendations PT Discharge Recommendations Home with 13/02 Assist Home Health SNF Rehab
--- NOTE | 2018-04-13 15:20 | PT.IPTN ---
Current Diagnoses Chronic or unspecified gastric ulcer with perforation (04/08/18) Surgery Performed Operation Date: 04/09/18 14:30 Actual Procedures p Exploratory Laparotomy GEN, partial sigmoid colectomy, diverting colostomy - Rohith Terrell MD Physical Therapy Treatment Note M2 PT-IP Current Condition Start: 04/11/18 12:37 Freq: NEEDED Status: Active Protocol: Document 04/11/18 11:35 AB (Rec: 04/11/18 12:49 AB [id number]) Physical Therapy Current Condition Current Condition Evaluation Date 04/11/18 Treatment Diagnosis perforated viscera s/p laparotomy/colectomy; generalized weakness Onset Date 04/08/18 Precautions Abdominal Surgery Precautions Log Roll Lifting Restrictions Gait Belt above Incisional Area Other Precautions O2 sat on 1L/min at this time abdominal drain nasal tube and IV line/picc lines M3 PT-IP Subjective Start: 04/11/18 12:37 Freq: NEEDED Status: Active Protocol: Document 04/13/18 15:20 GGD (Rec: 04/13/18 15:45 GGD [id number]) Subjective Physical Therapy Visit Type Type Treatment Note Visit Start Time 14:50 Visit Stop Time 15:20 Total Visit Minutes 30 Number of GIFT MANAGER Visits 1 Physical Therapy Visit Comments Patient Comments Pt feels better after resting. M4 PT-IP Mobility and Gait Start: 04/11/18 12:37 Freq: NEEDED Status: Active Protocol: Document 04/13/18 15:20 GGD (Rec: 04/13/18 15:45 GGD [id number]) PT-Bed Mobility Assessment Rolling Type of Rolling Log Rolling Level of Assist Minimal Assistance Supine to Sit Supine to Sit Minimal Assistance 1 Person Assistance Bedrails Scooting Scooting to Edge of Bed Contact Guard Assistance PT-Transfer Assessment Sit to and From Stand Sit to and from Stand Contact Guard Assistance Use of Upper Extremities Equipment Transfer Assistive Device Gait Belt Front Wheeled Walker Orthotic/Prosthetic Devices or Brace: No Transfers Transfer Destination Chair Gait Assessment Gait Gait Assistance Required: Contact Guard Assist Distance (Feet) 40 Able to Maintain Weight Bearing Status Yes During Gait Assistive Devices Assistive Device Gait Belt Front Wheeled Walker Orthotic/Prosthetic Devices or Brace: No Gait Deviations General Gait Pattern Decreased Stride Length Decreased Feet Clearance Factors Limiting Gait Function Factors Limiting Gait Function Decreased Activity Tolerance Decreased Strength Pain Poor Balance M5 PT-IP Objective Assessments Start: 04/11/18 12:37 Freq: NEEDED Status: Active Protocol: Document 04/11/18 11:35 AB (Rec: 04/11/18 12:49 AB [id number]) Orientation Orientation/Cognition Level of Alertness Alert Orientation Name Age Birthday Month Date Year Day of Week Place Situation Safety Awareness Decreased Safety Awareness Memory Description Short Term Impaired Gross Range of Motion Lower Extremity ROM Assessment Within Functional Limits Strength Lower Extremity Strength Assessment Bilaterally Impaired Hip 4-/5 Knee 4-/5 M6 PT-IP Treatment Start: 04/11/18 12:37 Freq: NEEDED Status: Active Protocol: Document 04/12/18 10:35 AB (Rec: 04/12/18 12:50 AB [id number]) Physical Therapy Treatment Education Education Provided Precautions Safety M7 PT-IP Assessment and Plan Start: 04/11/18 12:37 Freq: NEEDED Status: Active Protocol: Document 04/13/18 15:20 GGD (Rec: 04/13/18 15:45 GGD [id number]) PT Summary Assessment and Plan Summary Assessment Summary Pt was able to progress her bed mobility and gait distance . She was fatigue after gait. She slow moving step through gait pattern. Frequency of Treatment Frequency Of Treatment Once a Day Treatment Plan Other Recommendations and Next Treatment ambulation; log roll bed Focus mobility Recommendations To Nursing Amount of Assist Needed 1 Person Assist Discharge Recommendations PT Discharge Recommendations Home with / Assist Home Health SNF Rehab
--- NOTE | 2018-04-13 15:38 | OT.IP.TRT ---
Current Diagnoses Chronic or unspecified gastric ulcer with perforation (04/08/18) Surgery Performed Operation Date: 04/09/18 14:30 Actual Procedures p Exploratory Laparotomy GEN, partial sigmoid colectomy, diverting colostomy - Rohith Terrell MD Occupational Therapy Treatment Note M2 OT-IP Current Condition Start: 04/12/18 15:21 Freq: Status: Active Protocol: Document 04/12/18 14:10 PJM (Rec: 04/12/18 15:40 PJM [id number]) Occupational Therapy Current Condition Current Condition Evaluation Date 04/12/18 Treatment Diagnosis decreased self care, mobility, s/p ex lap 04/09/18 for ex lap for perf colon Diagnosis Onset Date 04/08/17 Post Operative Precautions Abdominal Surgery Precautions Log Roll Lifting Restrictions Gait Belt above Incisional Area Other Precautions O2 sat on 1L/min at this time abdominal drain, new colostomy gastric suction tube and IV line/picc lines M3 OT- IP Subjective and Pain Start: 04/12/18 15:21 Freq: Status: Active Protocol: Document 04/13/18 15:37 [facility] (Rec: 04/13/18 15:38 [facility] [id number]) OT- Subjective Occupational Therapy Visit Type Type Patient Refusal Notes Pt just finishing with PT and wanting to rest . Therefore to check on pt for OT treatment tomorrow.
--- NOTE | 2018-04-13 17:18 | PC.NURSE ---
Wound Ostomy Nurse Consult Note Connie up in the chair. She has been up for over an hour. We reviewed what an ostomy is and I showed her the ostomy model as well as a two piece pouching system. She was getting tired and her arrived. She was assisted back to bed by MAXIMILIANO Adams. I changed out her ostomy appliance. Her stoma measures 38mm. It is edematous, moist and has mucus. There is an area at the 6-8:00 position on the stoma that has some slough which will most likely slough off in the next few days. I placed a flat two piece moldable Convatec wafer 57mm and a transparent pouch. The midline jayne are intact without any drainage. Connie has an NG tube which is in place yet clamped. Her BOO drain is draining serosanguenus drainage and her enriquez is draining clear yellow urine. I will return on April 16at 1:30 to continue teaching with Connie and her and I will continue to assess her stoma.
[2018-04-13] MEDS: FLUCONAZOLE 200 MG/100 ML PIGGYBACK 100 MG IV (18:00)
[2018-04-13] MEDS: AA 5 %/CALCIUM/LYTES/DEXT 20 % 1,000 ML with MULTIVITAMIN 10 ML, TRACE ELEMENTS 1 ML, F... 42.258 ML IV (18:05)
[2018-04-13] MEDS: FAT EMULSIONS 50 GM/250 ML EMULSION IV (18:06)
--- NOTE | 2018-04-13 18:43 | PC.NURSE ---
1600- Patient states she is not having significant pain. Patient rates the pain at a 2/10. Patient ambulated with physical therapy. Tolerated well. Patient returned to room and is sitting up to chair. Will monitor.
[2018-04-13] MEDS: LABETALOL 100 MG/20ML MDV 10 MG IV (22:04)
--- NOTE | 2018-04-13 22:18 | PC.NURSE ---
2200-Patient BP elevated. MD notified and order for one time labetolol given. Medication given per order. Will monitor.
[2018-04-14] VITALS (10 sets, daily range): BP systolic 146–169; BP diastolic 84–99; PULSE 77–88; RESP 14–18; TEMP 36.6–37.2; O2SAT 94–97
--- NOTE | 2018-04-14 | DI.RAD.S_ITS ---
PROCEDURE: XR CHEST 1V INDICATIONS: Shortness of breath, asthma TECHNIQUE: One view of the chest was acquired. COMPARISON: [facility], , CHEST 2 VIEW, 08/18/2009, 13:17. [facility], CR, XR CHEST 1V, 04/09/2018, 18:23. [facility], CR, XR CHEST 1V, 04/12/2018, 5:24. FINDINGS: Surgical changes and devices: A gastric tube is seen, with the tip not visible, yet traversing below the level of the diaphragm. There is a stable left-sided PICC line. Lungs and pleura: The lungs are hyperexpanded. Blunting of the costophrenic angles can be seen. Mediastinum: The cardiac contours are within normal limits. The aorta demonstrates calcification and tortuosity. Bones and chest wall: No suspicious bony lesions. Age-appropriate bony degenerative changes are seen. Overlying soft tissues appear unremarkable. IMPRESSION: Hyperexpanded lungs. Small left-sided pleural effusion. Dictated by: Trevon Coffey M.D. on 04/14/2018 at 10:43 Approved by: Trevon Coffey M.D. on 04/14/2018 at 10:44
[2018-04-14] MEDS: PIPERACILLIN-TAZO 3.375 GM/50 ML FROZ.PIGGY IV ×3 (05:59→22:49)
[2018-04-14 07:05] LABS: Hematocrit 33.7 % (36-46); Hemoglobin 11.2 g/dL (12.0-16.0); Mean Corpuscular HGB Conc 33.4 % (30-36); Mean Corpuscular Hemoglobin 30.1 PG (26-34); Mean Corpuscular Volume 90.1 fL (80-100); Platelet Count 190 X10^3/uL (150-400); Red Blood Cell Count 3.74 X10^6/uL (4.0-5.2); Red Cell Distribution Width 13.3 % (11.6-14.8); White Blood Cell Count 6.9 X10^3/uL (4.5-11.0)
[2018-04-14 07:06] LABS: Add Manual Diff / Slide Review YES
[2018-04-14 07:11] LABS: Blood Urea Nitrogen 12 mg/dL (7-17); Calcium 7.6 mg/dL (8.4-10.2); Carbon Dioxide 37 mmol/L (22-32); Chloride 99 mmol/L (98-107); Estimated Glomerular Filt Rate > 60.0 mL/min (>60); Glucose 126 mg/dL (80-110); HEMOLYSIS < 15 (0-50); Magnesium 1.9 mg/dL (1.6-2.3); Phosphorous 2.2 mg/dL (2.8-4.1); Potassium 3.2 mmol/L (3.4-5.1); Sodium 140 mmol/L (137-145)
[2018-04-14] MEDS: PANTOPRAZOLE 40 MG VIAL IV (08:33)
[2018-04-14] MEDS: metroNIDAZOLE 500 MG/100 ML PIGGYBACK 100 MG IV ×3 (08:33→23:39)
--- NOTE | 2018-04-14 08:40 | PM.PN.1 ---
Subjective Date Patient Seen: 04/14/18 Time Patient Seen: 08:40 Interval history: Patient feeling much better today compared to yesterday. Slept well. Feels rested. Notes some minimal crampy abdominal pain intermittently with subsequent liquid stool in the ostomy appliance. No chest pain or shortness of breath. Denies subjective fever or chills. Pain is well controlled otherwise minimal. She is really not taking any type of analgesics at this time. Did well with the NG tube clamped over the last 24 hr. Denies nausea or vomiting. Requesting a cup of tea to drink. Exam Vital Signs (past 8 hours): - 04/14/18 05:15 Temperature 98.4 F Pulse Rate 80 Respiratory Rate 16 Blood Pressure 158/86 H Pulse Oximetry 96 Fraction of Inspired Oxygen 50 Oxygen Delivery Method Room Air Oxygen Flow Rate 2 Narrative Exam Narrative: Patient seen and examined with the attending nurse, Albert Smith female lying comfortably in bed in no acute distress. Alert oriented x3 Sclera nonicteric Nasogastric tube in place but clamped as above Chest clear to auscultation without wheezes. Regular rate and rhythm. No crackles. Abdomen shows some active bowel sounds throughout. She remains mildly distended and minimally tympanitic however. Appropriately tender to palpation without guarding or rebound. Incision is clean, dry, and intact without erythema or ecchymosis. No wound drainage. Mejia-Chan drain is collecting serous fluid only with a total of 45 cc since yesterday afternoon. No pus. Ostomy is pink and viable but mildly edematous. There is liquid dark stool and air in the appliance. Extremities show no clubbing, cyanosis, or significant edema although she does have some mild ankle edema bilaterally. Objective Labs Result Diagrams: 04/14/18 Unknown 04/14/18 Unknown Labs: Laboratory Results - last 24 hr 04/14/18 04/14/18 Unknown Unknown WBC 6.9 RBC 3.74 L Hgb 11.2 L Hct 33.7 L MCV 90.1 MCH 30.1 MCHC 33.4 RDW 13.3 Plt Count 190 Neut % (Auto) Not Reportable Lymph % (Auto) Not Reportable [place] % (Auto) Not Reportable Eos % (Auto) Not Reportable Baso % (Auto) Not Reportable Sodium 140 Potassium 3.2 L Chloride 99 Carbon Dioxide 37 H BUN 12 Creatinine 0.50 L Estimated GFR > 60.0 BUN/Creatinine Ratio 24.0 H Glucose 126 H Calcium 7.6 L Phosphorus 2.2 L Magnesium 1.9 chest x-ray today shows small left pleural effusion. Perhaps some fluid overload within the parenchyma but no obvious significant pulmonary edema. Otherwise study remains unchanged compared to prior chest x-rays this admission. Assessment & Plan Plan: Assessment/Plan Narrative: 78-year-old female now postoperative day 5 from laparotomy with sigmoid colectomy and diverting colostomy secondary to perforated sigmoid diverticulitis who is improving. She is having return of bowel function. Removed nasogastric tube today. Allow clear liquids as tolerated. Continue incentive spirometry and aggressive pulmonary toilet. Wean oxygen as tolerated. We will diurese her once again with 10 mg of intravenous Lasix since she remains 5 L positive in her fluid balance since the operation. She also responded nicely to the Lasix yesterday. She has mild hypokalemia as a result of the diuresis which we will correct with the TPN. Blood sugars are in acceptable ranges. Continue antibiotics for at least 2 more days. Continue the drain until most likely the time of discharge. Her blood pressure has risen slightly but she does not normally take antihypertensives. We will use hydralazine as needed. Out of bed and ambulate with assistance. We will discontinue the Montejo once she has completed her diuresis, possibly tonight or tomorrow morning. Transition to floor status out of the ICU but continue cardiac telemetry due to recent atrial fibrillation. All the above discussed with the patient and the attending nurse in detail. All the patient's questions were answered to her satisfaction, and she voiced understanding. Orders written.
[2018-04-14] MEDS: ENOXAPARIN 30 MG/0.3 ML SYRINGE SUBCUT (08:47)
[2018-04-14] MEDS: FUROSEMIDE 20 MG/2 ML VIAL 10 MG IV (08:47)
[2018-04-14 10:28] LABS: Neutrophils Absolute Manual 4830 /uL (3000-5900); Total Cells Counted 100
--- NOTE | 2018-04-14 10:41 | PC.ADMIT ---
[id number] [facility] Admission Note: The patient,Sarita Suarez,78 y/o, was given written information regarding hospital policies, unit procedures and contact persons. Patient's smoking status: Current every day smoker. Vital Signs - 8 hr 04/14/18 05:15 04/14/18 08:20 04/14/18 08:34 Temperature 98.4 F 97.9 F Pulse Rate 80 77 Respiratory Rate 16 14 Blood Pressure 158/86 H 169/90 H Pulse Oximetry 96 97 95 04/14/18 09:42 Temperature Pulse Rate 77 Respiratory Rate 16 Blood Pressure 149/84 H Pulse Oximetry 97
--- NOTE | 2018-04-14 10:42 | PC.NURSE ---
Pt transferred from 101 to 216 via w/c with portable tele by [employer]ITTING MACHINE OPERATOR. Report given to SADIA Ladd.
--- NOTE | 2018-04-14 12:22 | PT.IPTN ---
Current Diagnoses Chronic or unspecified gastric ulcer with perforation (04/08/18) Surgery Performed Operation Date: 04/09/18 14:30 Actual Procedures p Exploratory Laparotomy GEN, partial sigmoid colectomy, diverting colostomy - Rohith Terrell MD Physical Therapy Treatment Note M2 PT-IP Current Condition Start: 04/11/18 12:37 Freq: NEEDED Status: Active Protocol: Document 04/11/18 11:35 AB (Rec: 04/11/18 12:49 AB [id number]) Physical Therapy Current Condition Current Condition Evaluation Date 04/11/18 Treatment Diagnosis perforated viscera s/p laparotomy/colectomy; generalized weakness Onset Date 04/08/18 Precautions Abdominal Surgery Precautions Log Roll Lifting Restrictions Gait Belt above Incisional Area Other Precautions O2 sat on 1L/min at this time abdominal drain nasal tube and IV line/picc lines M3 PT-IP Subjective Start: 04/11/18 12:37 Freq: NEEDED Status: Active Protocol: Document 04/14/18 12:18 GGD (Rec: 04/14/18 12:22 GGD [id number]) Subjective Physical Therapy Visit Type Type Treatment Note Visit Start Time 11:45 Visit Stop Time 12:15 Total Visit Minutes 30 Number of THIRD RIGGER Visits 2 Physical Therapy Visit Comments Patient Comments Pt willing to walk. Therapy Pain Assessment Pain When Pain Assessed During Mobility Pain Present Pain Present Pain Reported M4 PT-IP Mobility and Gait Start: 04/11/18 12:37 Freq: NEEDED Status: Active Protocol: Document 04/14/18 12:18 GGD (Rec: 04/14/18 12:22 GGD [id number]) PT-Bed Mobility Assessment Rolling Type of Rolling Log Rolling Level of Assist Contact Guard Assistance Supine to Sit Supine to Sit Contact Guard Assistance Bedrails Sit to Supine Sit to Supine Contact Guard Assistance Bedrails Scooting Scooting to Edge of Bed Standby Assistance PT-Transfer Assessment Sit to and From Stand Sit to and from Stand Contact Guard Assistance Use of Upper Extremities Equipment Transfer Assistive Device Gait Belt Front Wheeled Walker Orthotic/Prosthetic Devices or Brace: No Transfers Transfer Destination Bed Gait Assessment Gait Gait Assistance Required: Contact Guard Assist Distance (Feet) 80 Able to Maintain Weight Bearing Status Yes During Gait Assistive Devices Assistive Device Gait Belt Front Wheeled Walker Orthotic/Prosthetic Devices or Brace: No Gait Deviations General Gait Pattern Decreased Stride Length Decreased Feet Clearance Factors Limiting Gait Function Factors Limiting Gait Function Decreased Activity Tolerance Decreased Strength Pain Poor Balance M5 PT-IP Objective Assessments Start: 04/11/18 12:37 Freq: NEEDED Status: Active Protocol: Document 04/11/18 11:35 AB (Rec: 04/11/18 12:49 AB [id number]) Orientation Orientation/Cognition Level of Alertness Alert Orientation Name Age Birthday Month Date Year Day of Week Place Situation Safety Awareness Decreased Safety Awareness Memory Description Short Term Impaired Gross Range of Motion Lower Extremity ROM Assessment Within Functional Limits Strength Lower Extremity Strength Assessment Bilaterally Impaired Hip 4-/5 Knee 4-/5 M6 PT-IP Treatment Start: 04/11/18 12:37 Freq: NEEDED Status: Active Protocol: Document 04/12/18 10:35 AB (Rec: 04/12/18 12:50 AB [id number]) Physical Therapy Treatment Education Education Provided Precautions Safety M7 PT-IP Assessment and Plan Start: 04/11/18 12:37 Freq: NEEDED Status: Active Protocol: Document 04/14/18 12:18 GGD (Rec: 04/14/18 12:22 GGD [id number]) PT Summary Assessment and Plan Summary Assessment Summary Pt continues to progress with mobility. She needs less assist for bed mobility. She does need cues for full log roll. She progress gait distance and stability with FWW. She improved her gait pace and stride length Frequency of Treatment Frequency Of Treatment Once a Day Treatment Plan Other Recommendations and Next Treatment ambulation; log roll bed Focus mobility Recommendations To Nursing Amount of Assist Needed 1 Person Assist Discharge Recommendations PT Discharge Recommendations Home with Assistance
[2018-04-14] MEDS: POTASSIUM PHOSPHATE 15 MMOL in DEXTROSE 5% IN WATER 250 ML 63.75 ML IV (13:33)
--- NOTE | 2018-04-14 14:27 | PC.NURSE ---
Pt up from ICU at 1045. She is A&ox3. ML incision is open to air and well approximated. BOO drain putting out ss drainage and TPN infusing at 42.2. Enriquez catheter balloon deflated and enriquez advanced in for pt. She stated that she had the feeling of having to void and her lower abdomen hurting. After advanced pt feels better and enriquez is draining with clear yellow urine. Picc Line dressing changed and pt denies discomfort at this time.
--- NOTE | 2018-04-14 16:59 | OT.IP.TRT ---
Current Diagnoses Chronic or unspecified gastric ulcer with perforation (04/08/18) Surgery Performed Operation Date: 04/09/18 14:30 Actual Procedures p Exploratory Laparotomy GEN, partial sigmoid colectomy, diverting colostomy - Rohith Terrell MD Occupational Therapy Treatment Note M2 OT-IP Current Condition Start: 04/12/18 15:21 Freq: Status: Active Protocol: Document 04/12/18 14:10 PJM (Rec: 04/12/18 15:40 PJM [id number]) Occupational Therapy Current Condition Current Condition Evaluation Date 04/12/18 Treatment Diagnosis decreased self care, mobility, s/p ex lap 04/09/18 for ex lap for perf colon Diagnosis Onset Date 04/08/17 Post Operative Precautions Abdominal Surgery Precautions Log Roll Lifting Restrictions Gait Belt above Incisional Area Other Precautions O2 sat on 1L/min at this time abdominal drain, new colostomy gastric suction tube and IV line/picc lines M3 OT- IP Subjective and Pain Start: 04/12/18 15:21 Freq: Status: Active Protocol: Document 04/14/18 16:10 [facility] (Rec: 04/14/18 16:58 [facility] [id number]) OT- Subjective Occupational Therapy Visit Type Type Patient Unavailable Notes Pt having discomfort in her pelvis area and feeling like she had to urinate but had the catheter in. Able to notified nursing so able to assist pt for catheter needs, therefore not able to see pt for OT treatment.
[2018-04-14] MEDS: DEXT IV (17:52)
[2018-04-14] MEDS: LYTES IV (17:52)
[2018-04-14] MEDS: CALCIUM IV (17:52)
[2018-04-14] MEDS: POTASSIUM CHLORIDE IV (17:52)
[2018-04-14] MEDS: [UNRECOGNIZED DRUG - OTHER] IV (17:52)
[2018-04-14] MEDS: FLUCONAZOLE 200 MG/100 ML PIGGYBACK 100 MG IV (18:02)
[2018-04-14] MEDS: INSULIN ASPART 100 UNIT/ML INSULN PEN SUBCUT (18:12)
[2018-04-15] VITALS (12 sets, daily range): BP systolic 143–177; BP diastolic 72–108; PULSE 75–103; RESP 14–18; TEMP 36.1–37.3; O2SAT 95–98
[2018-04-15 05:58] LABS: Blood Urea Nitrogen 13 mg/dL (7-17); Carbon Dioxide 33 mmol/L (22-32); Chloride 102 mmol/L (98-107); Estimated Glomerular Filt Rate > 60.0 mL/min (>60); Glucose 122 mg/dL (80-110); HEMOLYSIS < 15 (0-50); Potassium 3.7 mmol/L (3.4-5.1); Sodium 139 mmol/L (137-145)
[2018-04-15] MEDS: INSULIN ASPART 100 UNIT/ML INSULN PEN SUBCUT ×3 (06:06→19:00)
[2018-04-15] MEDS: PIPERACILLIN-TAZO 3.375 GM/50 ML FROZ.PIGGY IV ×2 (06:57→15:02)
[2018-04-15] MEDS: HYDRALAZINE 20 MG/ML VIAL 10 MG IV ×2 (08:47→16:43)
[2018-04-15] MEDS: PANTOPRAZOLE 40 MG VIAL IV (08:48)
[2018-04-15] MEDS: ENOXAPARIN 30 MG/0.3 ML SYRINGE SUBCUT (08:48)
[2018-04-15] MEDS: metroNIDAZOLE 500 MG/100 ML PIGGYBACK 100 MG IV ×2 (08:48→16:43)
--- NOTE | 2018-04-15 13:04 | P.PN_ITS ---
Subjective Date Patient Seen: 04/15/18 Time Patient Seen: 12:58 Interval history: Patient rested overnight but is somewhat anxious this morning. She is concerned about the length of time she has been receiving intravenous antibiotics. Otherwise denies any subjective fevers or chills. No chest pain. No new shortness of breath. She has been out of bed but does feel somewhat weak and fatigued after ambulation. No nausea or vomiting. Tolerated her clear liquids yesterday without significant difficulty although she does not have a significant appetite at this time. Exam Vital Signs (past 8 hours): - 04/15/18 05:14 04/15/18 06:27 04/15/18 07:00 Temperature 99.1 F Pulse Rate 75 Respiratory Rate 16 Blood Pressure 177/108 H 166/101 H Pulse Oximetry 95 98 04/15/18 07:40 Temperature 98.4 F Pulse Rate 78 Respiratory Rate 14 Blood Pressure 155/99 H Pulse Oximetry 97 Fraction of Inspired Oxygen 21 Oxygen Delivery Method Room Air Oxygen Flow Rate 0 Narrative Exam Narrative: Patient resting comfortably in bed in no acute distress. Alert oriented x3. She is in relatively good spirits. is at the bedside for my entire visit. Remains afebrile with no tachycardia. Cardiac telemetry shows normal sinus rhythm only. Continues to have diastolic hypertension in the 90s. However, she did not receive hydralazine until approximately 730 this morning. She received no doses yesterday. Excellent urine output following Lasix the last 2 days. She is approximately 5- 6 L negative since that time. Montejo catheter remains in place draining clear urine Chest is clear to auscultation this morning with no crackles or wheezes. No murmurs. Abdomen is soft and nondistended. She is minimally tender to palpation. No guarding or rebound. Wound is clean, dry, and intact without erythema, ecchymosis, or drainage. Colostomy is pink and viable with stool and air in the appliance. Mejia-Chan drain is collecting serous fluid only at approximately 45 cc per shift Extremities show no clubbing, cyanosis, or edema. Calves are soft and nontender bilaterally. Objective Labs Result Diagrams: 04/14/18 Unknown 04/15/18 05:04 Labs: Laboratory Results - last 24 hr 04/15/18 05:04 Sodium 139 Potassium 3.7 Chloride 102 Carbon Dioxide 33 H BUN 13 Creatinine 0.50 L Estimated GFR > 60.0 BUN/Creatinine Ratio 26.0 H Glucose 122 H Calcium 8.0 L Assessment & Plan Plan: Assessment/Plan Narrative: 78-year-old female now postoperative day 6 from laparotomy with sigmoid colectomy and diverting colostomy in conjunction with drainage of pelvic abscess for perforated diverticulitis who is doing well. Her postoperative ileus is now resolving and she is beginning to have some bowel function. Will advance her to a full liquid diet today. Discontinue Montejo catheter. Ambulate as tolerated. Continue ostomy care and education with the patient and her . Continue TPN until oral intake improves. If she tolerates full liquids today then we can advance her to a regular diet tomorrow and wean the TPN at that time. Discontinue Zosyn, Flagyl, and fluconazole after today's doses. Continue hydralazine as needed for hypertension. All the above discussed with the patient in detail. All questions answered to her satisfaction, and she voiced understanding. Orders were written.
--- NOTE | 2018-04-15 13:26 | PC.NURSE ---
Addendum entered by Julee Mix R.N. 04/15/18 15:30: Pt voided in the bathroom, she also had a slight bm from her rectum. She denies pain. BM soft and minute. Steady on her feet with 1pa and walker. IV antibiotics hanging and pt is comfortable. Original Note: Pts enriquez catheter taken out and pt tolerated well. She has not voided yet. Up with her and p.t. and is tolerating small walks. Stoma is beefy red with black stool in colostomy bag. Pts bt are +x4. Tolerating small amounts of clear and full liquids as her diet was advanced. Complained of some sob earlier this morning but this has subsided. a big support in pts life, he is here visting. ML incision cdi and well approximated. BOO drain putting out ss drainage. PICC line dressing changed yesterday and intact. Pt is getting iv TPN and intermittant antibiotics. Resting comfortably.
--- NOTE | 2018-04-15 14:15 | PT.IPTN ---
Current Diagnoses Chronic or unspecified gastric ulcer with perforation (04/08/18) Surgery Performed Operation Date: 04/09/18 14:30 Actual Procedures p Exploratory Laparotomy GEN, partial sigmoid colectomy, diverting colostomy - Rohith Terrell MD Physical Therapy Treatment Note M2 PT-IP Current Condition Start: 04/11/18 12:37 Freq: NEEDED Status: Active Protocol: Document 04/11/18 11:35 AB (Rec: 04/11/18 12:49 AB [id number]) Physical Therapy Current Condition Current Condition Evaluation Date 04/11/18 Treatment Diagnosis perforated viscera s/p laparotomy/colectomy; generalized weakness Onset Date 04/08/18 Precautions Abdominal Surgery Precautions Log Roll Lifting Restrictions Gait Belt above Incisional Area Other Precautions O2 sat on 1L/min at this time abdominal drain nasal tube and IV line/picc lines M3 PT-IP Subjective Start: 04/11/18 12:37 Freq: NEEDED Status: Active Protocol: Document 04/15/18 14:15 [facility] (Rec: 04/15/18 14:52 [facility] [id number]) Subjective Physical Therapy Visit Type Type Patient Refusal Notes pt refused gait with PT x2 this date, stated that she is not having a good day. She did walk to the window and back with nursing earlier, but pt respectfully refusing therapy at this time. Will attempt tomorrow. Frequency of Treatment Frequency Of Treatment Once a Day Treatment Plan Other Recommendations and Next Treatment ambulation; log roll bed Focus mobility Recommendations To Nursing Amount of Assist Needed 1 Person Assist Discharge Recommendations PT Discharge Recommendations Home with Assistance
--- NOTE | 2018-04-15 14:57 | CM.DPC ---
DCP: continued: Case again received yesterday, EMR reviewed and noted pt now our of ICU and to room 216. She was up ambulating in the [facility] yesterday with PT. Met now with pt and her . Pt is just getting up to go to bathroom, assisted by FOOD SAFETY OFFICER. Both confirm that ostomoy specialist Diamond Weaver is now [facility] and teach. She saw pt for initial visit on 04/13 and will see her again tomorrow. Pt remains on TPN, continues with PT/OT. Diet may be advanced tomorrow with consideration of TPN wean. Pt and her do continue to plan for home. Need: discussion re the Home Health agency options. RN will be needed for ostomy management. PT and OT may be recommended. Pt appears frail and weak but is smiling and acknowledges her progress. Her spouse appears to be strong and capable and is very open to whatever he can to help his return home. P: continue to follow, noting pt's strong desire for a home setting at d/c.
[2018-04-15] MEDS: FAT EMULSIONS 50 GM/250 ML EMULSION IV (18:10)
[2018-04-15] MEDS: [UNRECOGNIZED DRUG - OTHER] IV (18:10)
[2018-04-15] MEDS: POTASSIUM CHLORIDE IV (18:10)
[2018-04-15] MEDS: CALCIUM IV (18:10)
[2018-04-15] MEDS: LYTES IV (18:10)
[2018-04-15] MEDS: DEXT IV (18:10)
--- NOTE | 2018-04-15 23:19 | PC.NURSE ---
shift- A/O x3, LS clear and slight dim on left base. midline incision well approximated with jayne, BORDER GUARD, CDI, 2245 ostomy appliance leaked. Cleaned all of ABD, incision, BOO site, and reapplied appliance, bag, and OBO drsg. BOO is not staying deflated, tried to find the leak, but unsuccessful. Dr Terrell notified of non-suctioning BOO, BOO with clear light orange serous drainage 40mL this shift. SANJUANITA dbl lum PICC infusing TPN and lipids. Dark green loose stools out from colostomy. Hydralizine 10mg Q-6hr for SBP >180 or DBP >85, 1645 gave 10mg hydralizine for BP 145/95, 1745-BP 143/72. Pt has been mild tachycardic with 100 and 103HR's. CBG-145, given 2 units insulin. Tele NSR. Corey, rooming in. call light in reach.
[2018-04-16] VITALS (11 sets, daily range): BP systolic 121–158; BP diastolic 76–98; PULSE 97–106; RESP 16–21; TEMP 36.6–36.9; O2SAT 96–99; BMI 16.9
[2018-04-16] MEDS: HYDRALAZINE 20 MG/ML VIAL 10 MG IV (00:13)
[2018-04-16] MEDS: INSULIN ASPART 100 UNIT/ML INSULN PEN SUBCUT ×3 (06:17→18:19)
[2018-04-16] MEDS: ONDANSETRON 4 MG/2 ML INJ IV (08:10)
[2018-04-16] MEDS: ENOXAPARIN 30 MG/0.3 ML SYRINGE SUBCUT (08:10)
[2018-04-16] MEDS: PANTOPRAZOLE 40 MG VIAL IV (08:10)
--- NOTE | 2018-04-16 08:39 | PC.NURSE ---
Addendum entered by Haily Mast R.N. 04/16/18 08:49: blood pressure from 0735 this morning was 158/95 p 98 this RN rechecked b/p at 0849 and was 137/76 p 97 no medications given at this time. pt reports that nausea has improved. Original Note: Day Shift Note Pt is sititng in bed A&O x3 able to communicate needs. Denies any pain at rest. reports feeling nauseated and starts dry heives prior to breakfast arriving, medicated with IV Zofran, Pt Ostomy dressing is CDI has Dark brown/black liquid stool out with some air in bag. midline abdomen is well approximated with jayne no s/sx of infection. BOO drain on right side bulb not staying compressed, does not to have moderate amount of drainage around dressing at insertion. Pt has SOB with exertion and sats are 98%RA pt states she has asthma and that this is baseline. Pt declines breakfast but wanted a few sips of coffee. Call light within reach and bed alarm for safety
--- NOTE | 2018-04-16 08:43 | PT.IPTN ---
Current Diagnoses Chronic or unspecified gastric ulcer with perforation (04/08/18) Surgery Performed Operation Date: 04/09/18 14:30 Actual Procedures p Exploratory Laparotomy GEN, partial sigmoid colectomy, diverting colostomy - Rohith Terrell MD Physical Therapy Treatment Note Subjective Physical Therapy Visit Type Type Patient Refusal Physical Therapy Visit Comments Patient Comments Pt declines to participate at this time as she isn't feeling well, agreeable for therapies to check back on her later.
--- NOTE | 2018-04-16 08:47 | OT.IP.TRT ---
Current Diagnoses Chronic or unspecified gastric ulcer with perforation (04/08/18) Surgery Performed Operation Date: 04/09/18 14:30 Actual Procedures p Exploratory Laparotomy GEN, partial sigmoid colectomy, diverting colostomy - Rohith Terrell MD Occupational Therapy Treatment Note M2 OT-IP Current Condition Start: 04/12/18 15:21 Freq: Status: Active Protocol: Document 04/12/18 14:10 PJM (Rec: 04/12/18 15:40 PJM [id number]) Occupational Therapy Current Condition Current Condition Evaluation Date 04/12/18 Treatment Diagnosis decreased self care, mobility, s/p ex lap 04/09/18 for ex lap for perf colon Diagnosis Onset Date 04/08/17 Post Operative Precautions Abdominal Surgery Precautions Log Roll Lifting Restrictions Gait Belt above Incisional Area Other Precautions O2 sat on 1L/min at this time abdominal drain, new colostomy gastric suction tube and IV line/picc lines M3 OT- IP Subjective and Pain Start: 04/12/18 15:21 Freq: Status: Active Protocol: Document 04/16/18 08:43 [facility] (Rec: 04/16/18 08:47 [facility] [id number]) OT- Subjective Occupational Therapy Visit Type Type Patient Refusal Notes Approached pt for OT treatment and pt states has not slept well, not feeling well, and would like to sleep. Therefore , to check on pt tomorrow.
--- NOTE | 2018-04-16 15:24 | PC.NURSE ---
Wound Ostomy Nurse Consult Note Connie awake sitting up the the chair. Her is here for teaching. Connie's colostomy is edematous, moist, red. She is producing a small amount of liquid dark stool and gas. Her incision line jayne are intact without any drainage. Her BOO drain is intact with serosanguenous drainage. We reviewed how to remove and place a pouching system. Her practiced this on the stoma model. I also showed them how to use the crusting technique and when to use stoma paste. Her did very well and Connie watched. I told Connie she will have to practice on the stoma model later this week. She was very attentive with the teaching. Connie has a moldable two piece 57mm Convatec wafer and clear pouch without a filter. She also has an adaptor to help with discomfort when placing the pouch. I will bring more ostomy appliances up to her room. Dr. Terrell came in and will continue TPN as Connie is not taking in enough calories. We discussed discharge planning and will see how much stronger Connie gets in the coming days. I will return on Monday to change the osotmy appliance with Connie.
--- NOTE | 2018-04-16 15:29 | PT.IPTN ---
Current Diagnoses Chronic or unspecified gastric ulcer with perforation (04/08/18) Surgery Performed Operation Date: 04/09/18 14:30 Actual Procedures p Exploratory Laparotomy GEN, partial sigmoid colectomy, diverting colostomy - Rohith Terrell MD Physical Therapy Treatment Note M2 PT-IP Current Condition Start: 04/11/18 12:37 Freq: NEEDED Status: Active Protocol: Document 04/11/18 11:35 AB (Rec: 04/11/18 12:49 AB [id number]) Physical Therapy Current Condition Current Condition Evaluation Date 04/11/18 Treatment Diagnosis perforated viscera s/p laparotomy/colectomy; generalized weakness Onset Date 04/08/18 Precautions Abdominal Surgery Precautions Log Roll Lifting Restrictions Gait Belt above Incisional Area Other Precautions O2 sat on 1L/min at this time abdominal drain nasal tube and IV line/picc lines M3 PT-IP Subjective Start: 04/11/18 12:37 Freq: NEEDED Status: Active Protocol: Document 04/16/18 15:28 CLB (Rec: 04/16/18 15:29 CLB [id number]) Subjective Physical Therapy Visit Type Type Patient Refusal Notes Pt up in bathroom with on arrival. Pt stated she had walker earlier in the room and had been up in the chair for an hour. Pt states she is tired and is just going to go back to bed. Will check back with pt in AM. Treatment Plan Other Recommendations and Next Treatment ambulation; log roll bed Focus mobility Recommendations To Nursing Amount of Assist Needed 1 Person Assist Discharge Recommendations PT Discharge Recommendations Home with Assistance
--- NOTE | 2018-04-16 16:47 | PM.PN.1 ---
Subjective Date Patient Seen: 04/16/18 Time Patient Seen: 16:47 Interval history: Had some nausea earlier today in some mild regurgitation but no vomiting. Does not feel subjectively distended. Notices air and stool within the appliance per colostomy. No difficulties with dysuria or hesitancy. Denies any subjective fever or chills. No chest pain. No significant shortness of breath although she does become easily fatigued with ambulation. Exam Vital Signs (past 8 hours): - 04/16/18 08:48 04/16/18 12:40 04/16/18 16:22 Temperature 98.5 F 98.5 F Pulse Rate 97 H 106 H 97 H Respiratory Rate 17 18 Blood Pressure 137/76 121/84 137/80 Pulse Oximetry 98 99 Fraction of Inspired Oxygen 21 Oxygen Delivery Method Room Air Oxygen Flow Rate 0 Narrative Exam Narrative: Remains afebrile. Otherwise alert oriented x3. She is in good spirits. Resting comfortably in bedside chair receiving ostomy teaching at the time of my visit. is at the bedside Chest is clear to auscultation although breath sounds are diminished consistent with COPD Abdomen is soft and nondistended. She is minimally tender. Incision is clean, dry, and intact without erythema, ecchymosis, or drainage. Ostomy is pink and viable with flatus and stool in the appliance. Mejia-Chan drain is collecting serosanguineous fluid only. However, the bulb was not holding suction very well. I am unable to ascertain exactly why. Extremities show no clubbing, cyanosis, or edema Objective Labs Result Diagrams: 04/14/18 Unknown 04/15/18 05:04 Labs: No new laboratory or radiographic studies for review. Assessment & Plan Plan: Assessment/Plan Narrative: 78-year-old female postoperative day 7 from laparotomy with sigmoid colectomy and diverting colostomy secondary to perforated diverticulitis who continues to slowly recover. Her postoperative ileus appears resolved but her oral intake remains relatively poor. I do not expect her appetite be significant, but she is taking some supplementation including Ensure surgery. I will continue the full liquid diet for now, but she may have the Ensure supplementation and banana if she wishes. If her oral intake stabilizes over the next 24 hr I will discontinue the TPN. However, we will reorder the TPN without lipids for 1 more day currently. Likely remove her jayne and drain before discharge which I anticipate will be in the next 1-2 days if her oral intake it stabilizes and she is able to ambulate safely unassisted. I discussed all the above with the patient and her in detail. All questions were answered to their satisfaction, and the patient voiced understanding. Orders written.
[2018-04-16] MEDS: CALCIUM IV (18:18)
[2018-04-16] MEDS: POTASSIUM CHLORIDE IV (18:18)
[2018-04-16] MEDS: [UNRECOGNIZED DRUG - OTHER] IV (18:18)
[2018-04-16] MEDS: LYTES IV (18:18)
[2018-04-16] MEDS: DEXT IV (18:18)
--- NOTE | 2018-04-16 19:24 | PC.NURSE ---
Drsg around ambar site changed. two drain drsg's placed. pt tolerated well.
[2018-04-17] VITALS (11 sets, daily range): BP systolic 122–152; BP diastolic 69–97; PULSE 87–118; RESP 18–20; TEMP 36.5–37.2; O2SAT 96–99
[2018-04-17] MEDS: HYDRALAZINE 20 MG/ML VIAL 10 MG IV (06:16)
[2018-04-17] MEDS: ENOXAPARIN 30 MG/0.3 ML SYRINGE SUBCUT (08:16)
--- NOTE | 2018-04-17 13:00 | PT.IPTN ---
Current Diagnoses Chronic or unspecified gastric ulcer with perforation (04/08/18) Surgery Performed Operation Date: 04/09/18 14:30 Actual Procedures p Exploratory Laparotomy GEN, partial sigmoid colectomy, diverting colostomy - Rohith Terrell MD Physical Therapy Treatment Note M2 PT-IP Current Condition Start: 04/11/18 12:37 Freq: NEEDED Status: Active Protocol: Document 04/11/18 11:35 AB (Rec: 04/11/18 12:49 AB [id number]) Physical Therapy Current Condition Current Condition Evaluation Date 04/11/18 Treatment Diagnosis perforated viscera s/p laparotomy/colectomy; generalized weakness Onset Date 04/08/18 Precautions Abdominal Surgery Precautions Log Roll Lifting Restrictions Gait Belt above Incisional Area Other Precautions O2 sat on 1L/min at this time abdominal drain nasal tube and IV line/picc lines M3 PT-IP Subjective Start: 04/11/18 12:37 Freq: NEEDED Status: Active Protocol: Document 04/17/18 09:30 CLB (Rec: 04/17/18 13:00 CLB [id number]) Subjective Physical Therapy Visit Type Type Treatment Note Visit Start Time 09:30 Visit Stop Time 09:53 Total Visit Minutes 23 Number of CAREER DEVELOPMENT FACILITATOR Visits 3 Physical Therapy Visit Comments Patient Comments Pt willing to ambulate. M4 PT-IP Mobility and Gait Start: 04/11/18 12:37 Freq: NEEDED Status: Active Protocol: Document 04/17/18 09:30 CLB (Rec: 04/17/18 13:00 CLB [id number]) PT-Bed Mobility Assessment Rolling Type of Rolling Log Rolling Level of Assist Standby Assistance Supine to Sit Supine to Sit Standby Assistance Scooting Scooting to Edge of Bed Standby Assistance PT-Transfer Assessment Sit to and From Stand Sit to and from Stand Contact Guard Assistance Use of Upper Extremities Equipment Transfer Assistive Device Gait Belt Front Wheeled Walker Orthotic/Prosthetic Devices or Brace: No Transfers Transfer Destination Chair Transfer Ability Level of Assist Contact Guard Assistance Use of Upper Extremities Comments Mobility Comments Once pt got to EOB she needed to rest and seemed SOB. Gait Assessment Gait Gait Assistance Required: Contact Guard Assist Distance (Feet) 30 Able to Maintain Weight Bearing Status Yes During Gait Assistive Devices Assistive Device Gait Belt Front Wheeled Walker Orthotic/Prosthetic Devices or Brace: No Gait Deviations General Gait Pattern Decreased Stride Length Decreased Feet Clearance Flexed Trunk Factors Limiting Gait Function Factors Limiting Gait Function Decreased Activity Tolerance Decreased Strength Pain Poor Balance Comments Gait Comments Pt fatigued quickly and needed standing rest breaks x3 during ambulation, pt leans over and rests elbows on walker to rest. M5 PT-IP Objective Assessments Start: 04/11/18 12:37 Freq: NEEDED Status: Active Protocol: Document 04/11/18 11:35 AB (Rec: 04/11/18 12:49 AB [id number]) Orientation Orientation/Cognition Level of Alertness Alert Orientation Name Age Birthday Month Date Year Day of Week Place Situation Safety Awareness Decreased Safety Awareness Memory Description Short Term Impaired Gross Range of Motion Lower Extremity ROM Assessment Within Functional Limits Strength Lower Extremity Strength Assessment Bilaterally Impaired Hip 4-/5 Knee 4-/5 M6 PT-IP Treatment Start: 04/11/18 12:37 Freq: NEEDED Status: Active Protocol: Document 04/12/18 10:35 AB (Rec: 04/12/18 12:50 AB [id number]) Physical Therapy Treatment Education Education Provided Precautions Safety M7 PT-IP Assessment and Plan Start: 04/11/18 12:37 Freq: NEEDED Status: Active Protocol: Document 04/17/18 09:30 CLB (Rec: 04/17/18 13:00 CLB [id number]) PT Summary Assessment and Plan Summary Assessment Summary Pt has decreased gait tolerance and was unable to ambulate further than ~30ft. Pt needed several rest breaks with ambulation and stated she feels weaker today. Pt O2 sats remained above 97%, HR 130 with ambulation. Treatment Plan Other Recommendations and Next Treatment ambulation; log roll bed Focus mobility Recommendations To Nursing Amount of Assist Needed 1 Person Assist Discharge Recommendations PT Discharge Recommendations Home with Assistance Home Health Other Discharge Recommendations Pt would benefit from HH PT, OT
--- NOTE | 2018-04-17 13:36 | CM.DPC ---
DCP/Cont: Patient continues to make progress with PT. PT recommended home with HH/PT/OT at discharge. Met with patient and provided medicare choice list. Patient gave preference to 1-[facility] . CM/Regino faxed referral to [facility]. F2F is still needed. Per MD patient to discharge in another 1-2 days if her oral intake stabilizes. Plan: Home with HH/PT,OT, Nursing and bath aid. F2F needed. CM team to follow up with [facility] if they are able to accept referral or not.
--- NOTE | 2018-04-17 13:37 | CM.DPC ---
Referral faxed to [facility] per Lanny
--- NOTE | 2018-04-17 13:55 | OT.IP.TRT ---
Current Diagnoses Chronic or unspecified gastric ulcer with perforation (04/08/18) Surgery Performed Operation Date: 04/09/18 14:30 Actual Procedures p Exploratory Laparotomy GEN, partial sigmoid colectomy, diverting colostomy - Rohith Terrell MD Occupational Therapy Treatment Note M3 OT- IP Subjective and Pain Start: 04/12/18 15:21 Freq: Status: Active Protocol: Document 04/17/18 13:55 PJM (Rec: 04/18/18 15:52 PJ [id number]) OT- Subjective Occupational Therapy Visit Type Type Treatment Note Visit Start Time 13:30 Visit Stop Time 13:55 Total Visit Minutes 25 Notes Pt's here for education this session. Occupational Therapy Visit Comments Patient Comments The doctor says I get to go home tomorrow! Patient/Caregiver Goals to return to independence with self care in home setting OT Pain Assessment Pain When Pain Assessed After Treatment Pain Present Pain Present Denied Pain M4 OT- IP ADL's Start: 04/12/18 15:21 Freq: Status: Active Protocol: Document 04/17/18 13:55 PJM (Rec: 04/18/18 15:52 PJ [id number]) OT LIG-Szml-[place]gtte[place] General Evaluation Self-Feeding Ability Independent Comments OT Self-Feeding Comments appetite remains decreased; pt looking forward to home cooking. OT ADL-Grooming General Evaluation Grooming Ability Standby Assistance Areas Needing Assistance Retrieving/Set-up of Grooming Items Comments OT Grooming Comments seated in chair or standing at sink with CGA for 2-3 min OT ADL-Oral Care General Eval Oral Care Ability Standby Assistance Comments Oral Care Comments seated in chair or standing at sink with CGA for 2-3 min OT ADL-Dressing Comments OT Dressing Comments Pt/family decline AED for dressing; plans to assist pt PRN with lower body dressing until pt able. Pt SBA with upper body dressing. OT ADL-Toileting General Evaluation Toileting Ability Maximum Assistance Areas Needing Assistance Empty Catheter or Colostomy Comments OT Toileting Comments Pt/ have been trained by press tender smoke signal and doing ostomy care at present. pt SBA with madeline care after urination. to obtain BSC for use over toilet. OT ADL-Bathing Devices Bathing Equipment Shower Chair with Arms Grab Bars Comments OT Bathing Comments Pt declines to shower here. Provided education to pt/ re: shower seat options and local resources/prices. He prefers to purchase equipt rather than borrow it. He will obtain shower seat with arms and install suction grab bars. M7 OT- IP Mobility and Balance Start: 04/12/18 15:21 Freq: Status: Active Protocol: Document 04/17/18 13:55 PJM (Rec: 04/18/18 15:52 PJM [id number]) OT-Transfer Assessment Comments Mobility Comments Pt declines OOB this session. OT- Gait Assessment Comments Gait Ability Comments Pt declines OOB this session. States she has been walking in halls with nursing. M8 OT- IP Objective Assessments Start: 04/12/18 15:21 Freq: Status: Active Protocol: Document 04/12/18 14:10 PJM (Rec: 04/12/18 15:40 PJM [id number]) OT Gross Range of Motion Upper Extremity Range of Motion Assessment Within Functional Limits OT Strength Upper Extremity Strength Assessment Within Functional Limits OT- Coordination Assessment Comments Coordination Comments BUE WFL OT-Muscle Tone Assessment Muscle Tone WNL Yes OT Sensation Assessment Comments Summary Comments BUE WNL per pt M9 OT- IP Assessment and Plan Start: 04/12/18 15:21 Freq: Status: Active Protocol: Document 04/17/18 13:55 PJM (Rec: 04/18/18 15:52 PJM [id number]) OT Summary Assessment and Plan Summary Progress Towards Goals Progressing Toward Goals Assessment Summary Pt's affect much brighter today when given the news that she can go home tomorrow. is very attentive and capable and can provide 24 hr assist after d/c. Encouraged to let pt be as independent ans possible at home as completing self care tasks by herself will increase strength, endurance, flexibility and confidence. Goals Days to Meet Goals 1 Treatment Plan Other Treatment Recommendations and Next Finalize home equipt needs Treatment Focus tomorrow. Discharge Recommendations OT Discharge Recommendations Home with 24/7 Assist Home Equipment Needs to obtain BSC and shower seat with back, armrests.
--- NOTE | 2018-04-17 14:04 | PM.PN.1 ---
Subjective Date Patient Seen: 04/17/18 Time Patient Seen: 14:04 Interval history: Denies pain. No chest pain. No shortness of breath. She is having consistent colostomy output including flatus. She and her are essentially caring for the stoma at this point generally unassisted. Patient ambulating although does become somewhat fatigued relatively quickly. Denies any dysuria hematuria. Tolerating a regular diet but small quantities. She become somewhat full early. However, she states that this is her usual baseline appetite at home. Exam Vital Signs (past 8 hours): - 04/17/18 06:15 04/17/18 06:16 04/17/18 06:40 Temperature Pulse Rate Respiratory Rate Blood Pressure 151/90 H 150/90 H 143/81 H Pulse Oximetry 04/17/18 06:45 04/17/18 07:00 04/17/18 08:25 Temperature 97.7 F Pulse Rate 118 H Respiratory Rate 20 Blood Pressure 143/81 H 122/69 Pulse Oximetry 97 97 04/17/18 11:35 Temperature 99.0 F Pulse Rate 104 H Respiratory Rate 18 Blood Pressure 130/76 Pulse Oximetry 99 Fraction of Inspired Oxygen 21 Oxygen Delivery Method Room Air Oxygen Flow Rate 0 Narrative Exam Narrative: Thin female sitting comfortably in bed in no acute distress. Alert oriented x3. She is in good spirits today. is at the bedside for my entire visit. Sclera nonicteric She has mild tachypnea consistent with her known COPD. Regular rate and rhythm. Abdomen is soft, nondistended, nontender, no masses. Incision is clean, dry, and intact without erythema or ecchymosis. Drain remains in place with serous fluid only. Colostomy is pink and viable with stool and flatus in the appliance. Extremities show no clubbing, cyanosis, or edema Objective Labs Result Diagrams: 04/14/18 Unknown 04/15/18 05:04 Labs: No new laboratory or radiographic studies for review today Assessment & Plan Plan: Assessment/Plan Narrative: 78-year-old female doing well status post Lea procedure for perforated diverticulitis and drainage of pelvic abscess. She has evidence of severe protein calorie malnutrition which she had admission with her baseline overall body weight at 88 lb. She is tolerating a diet at this point. Continue supplementation although she does not particularly care for the Ensure. She may have what ever supplements she prefers such as milk shakes with protein powder or other high-calorie snacks. I will plan to remove her jayne tomorrow morning along with the Mejia-Chan drain. She does not require any further TPN at this time. Therefore we will discontinue the infusion after the current bag is completed tonight. She may continue to ambulate as much as tolerated. If she continues to do well then I planned discharge home tomorrow. Discontinue cardiac telemetry currently. All the above discussed with the patient and her in detail. All questions answered to her satisfaction, and she voiced understanding. Orders written.
[2018-04-18] VITALS: O2SAT 96
[2018-04-18 00:26] VITALS: BP 155/99; PULSE 96; RESP 16; TEMP 36.8; O2SAT 96
[2018-04-18 00:49] VITALS: BP 149/89; PULSE 91
[2018-04-18 06:09] VITALS: BP 155/89; PULSE 91; RESP 16; TEMP 36.8; O2SAT 97
[2018-04-18] MEDS: PANTOPRAZOLE 40 MG TABLET PO (06:38)
[2018-04-18 07:00] VITALS: O2SAT 97
[2018-04-18 08:00] VITALS: BP 144/85; PULSE 87; RESP 16; TEMP 36.8; O2SAT 97
--- NOTE | 2018-04-18 09:45 | OT.IP.TRT ---
Current Diagnoses Chronic or unspecified gastric ulcer with perforation (04/08/18) Surgery Performed Operation Date: 04/09/18 14:30 Actual Procedures p Exploratory Laparotomy GEN, partial sigmoid colectomy, diverting colostomy - Rohith Terrell MD Occupational Therapy Treatment Note M3 OT- IP Subjective and Pain Start: 04/12/18 15:21 Freq: Status: Active Protocol: Document 04/18/18 09:45 PJM (Rec: 04/18/18 16:05 PJM [email or web address]) OT- Subjective Occupational Therapy Visit Type Type Treatment Note Visit Start Time 09:35 Visit Stop Time 09:45 Total Visit Minutes 10 Notes Husbnad here for further education. Occupational Therapy Visit Comments Patient Comments I am going home before lunch. OT Pain Assessment Pain When Pain Assessed After Treatment Pain Present Pain Present Denied Pain M4 OT- IP ADL's Start: 04/12/18 15:21 Freq: Status: Active Protocol: Document 04/18/18 09:45 PJM (Rec: 04/18/18 16:05 PJM [email or web address]) OT ADL-Toileting Comments OT Toileting Comments has obtained BSC OT ADL-Bathing Comments OT Bathing Comments has obtained shower seat with armrests. M7 OT- IP Mobility and Balance Start: 04/12/18 15:21 Freq: Status: Active Protocol: Document 04/18/18 09:45 PJM (Rec: 04/18/18 16:05 PJM [email or web address]) OT-Transfer Assessment Technique Transfer Destination Car Comments Mobility Comments Provided education re: car transfer techniques and lower sedan is more easily accessible than their Escalade. Pt/ verbalize understanding. M9 OT- IP Assessment and Plan Start: 04/12/18 15:21 Freq: Status: Active Protocol: Document 04/18/18 09:45 PJM (Rec: 04/18/18 16:05 PJM [id number]) OT Summary Assessment and Plan Potential Rehabilitation Potential Good Summary Progress Towards Goals Safe For Discharge Goals Met Assessment Summary All OT goals achieved for this admission. Despite pt's reluctance to practice ADL techniques here, she verbalizes understanding and supportive, capable will provide 24 hr assist at d/c. Recommend HH OT followup to ensure pt progressing with self care and light IADLS in home setting. Frequency of Treatment Frequency Of Treatment Discharge Discharge Recommendations OT Discharge Recommendations Home with 24/7 Assist Home Health
[2018-04-18] MEDS: ENOXAPARIN 30 MG/0.3 ML SYRINGE SUBCUT (10:47)
[2018-04-18] MEDS: DOCUSATE 100 MG CAPSULE PO (10:48)
--- NOTE | 2018-04-18 13:14 | P.DS_ITS ---
History of Present Illness Date Patient Seen: 04/18/18 Time Patient Seen: 09:00 Chief complaint: Abdominal pain, throwing up blood Narrative: 78-year-old female who presented to the emergency department with significant pain and vomiting. She was found to have free air on imaging studies. Examination and evaluation were consistent with perforated viscus. She was admitted to the ICU for intravenous antibiotics, IV fluid resuscitation , and eventual operation. Discharge Providers Date of admission: 04/08/18 11:34 Consults: 04/09/18 18:18 Consult to Dietitian, Adult Routine Comment: Reason For Exam: Patient on Ventilator and NPO Consult to Discharge Planning Routine Comment: Consult to Ostomy Specialist Routine Comment: descending colostomy for perforated diverticulitis Consulting Provider: Consult to PICC Line RN Routine Comment: Consult to Respiratory Therapy Evaluate & Treat Comment: Physician Instructions: Evaluate and treat 04/11/18 07:50 Consult to Physical Therapy Evaluate & Treat Comment: Physician Instructions: Evaluate and Treat 04/11/18 14:23 Consult to Occupational Therapy Evaluate & Treat Comment: Physician Instructions: Evaluate and treat 04/13/18 09:18 Consult to Physician Routine Comment: Consulting Provider: Xiomara Chi Reason for consultation: possible epidural placement for pain control Has provider been notified: Yes 04/18/18 12:41 Consult to Home Health Routine Comment: RN/OT/PT Reason For Exam: home health services at d/c Discharge provider: Rohith Terrell MD Summary Discharge Diagnosis: Perforated sigmoid diverticulitis Pelvic abscess Acute hypertension, resolved Severe protein calorie malnutrition, chronic Exploratory laparotomy with partial sigmoid colectomy, descending and colostomy , and drainage of pelvic abscess April 09, 2018 PICC line insertion COPD Postoperative ileus, subsequently resolved Atrial fibrillation, single episode, resolved Hospital Course: Patient was admitted as above with diagnosis of perforated viscus. She was taken urgently to the operating room as above. She tolerated these procedures well and was returned to the intensive care unit immediately after surgery. She was maintained on the ventilator overnight due to potential for septic shock and respiratory failure. However, she did not experience these issues and responded nicely to IV fluid resuscitation. She was therefore extubated on postoperative day 1. She had postoperative ileus which was not anticipated that eventually resolved. Colostomy output began to function normally. She was seen by the enterostomal therapist for teaching, and she is comfortable with care at the time of discharge. Home nurse will be established to assist with such also. She had baseline protein calorie malnutrition with an admission weight of 88 lb. PICC line was placed and she was maintained on total parental nutrition until such time her ileus resolved and she was able to tolerate her baseline diet with protein calorie supplementation. Dietary salt the patient in consultation for such as well. She was maintained on 1 week of broad-spectrum antibiotics and antifungals but had no evidence of any infectious complications including sepsis. She is therefore discharged home without antibiotics. Drain in wound jayne were removed on the day of discharge. She is healing nicely without evidence of any other complications. Her COPD remains at baseline but she does not require oxygen. She is ambulating unassisted. She has had return of normal bladder function. She did have a single episode of atrial fibrillation while in the ICU but this resolved with a single dose of intravenous labetalol. She had no evidence of myocardial infarction or other acute cardiopulmonary event. She was somewhat hypertensive following surgery but responded nicely to diuresis and several as needed doses of hydralazine. She does not require antihypertensives at the time of discharge , and her blood pressure is normal as well as heart rate. She has been maintained in a normal sinus rhythm as well. Because of her stable condition she is discharged home on postoperative day 9. She will follow up in surgery Clinic next week. However, she has been instructed to call or return sooner if she has any issues with fever, chills, nausea, vomiting, inability to tolerate a diet, lack of colostomy output, progressive abdominal pain, wound drainage, or any other concerns. All questions were answered to her satisfaction, and she voiced understanding. Status at Discharge Cognitive/behavioral status at discharge: Alert, oriented x3 Functional status at discharge: independent ambulation Overall status at discharge: patient is progressing back to baseline Time Spent with Patient Less than 30 minutes Exam Vital Signs (past 8 hours): - 04/18/18 06:09 04/18/18 07:00 04/18/18 08:00 Temperature 98.2 F 98.2 F Pulse Rate 91 H 87 Respiratory Rate 16 16 Blood Pressure 155/89 H 144/85 H Pulse Oximetry 97 97 97 Fraction of Inspired Oxygen 21 Oxygen Delivery Method Room Air Oxygen Flow Rate 0 Narrative Exam Narrative: Very thin elderly female in no acute distress lying comfortably in bed. Alert oriented x3 Sclera nonicteric Neck is supple Chest is clear to auscultation with regular rate and rhythm. No murmurs, gallops , rubs. No crackles or wheezes. However, her breath sounds are distant bilaterally consistent with COPD Abdomen is soft, nondistended, nontender, no masses. She has no guarding or rebound. Wound is clean, dry, and intact without erythema, drainage, or ecchymosis. No hematoma or seroma. Drain site is healing nicely without erythema. Colostomy is pink and viable with normal flatus and stool output. Extremities show no clubbing, cyanosis, or edema Objective Labs Result Diagrams: 04/14/18 Unknown 04/15/18 05:04 Discharge Plan Discharge Plan Patient Disposition: Home Discharge Med Rec/Prescriptions Prescriptions: New sennosides [senna] 8.6 mg Tablet 8.6 mg PO BEDTIME Qty: 10 RF: 1 docusate sodium 100 mg Capsule 100 mg PO BID Qty: 20 RF: 1 hydrocodone-acetaminophen [Vicodin] 5-300 mg tablet 1 tab PO Q6H PRN (Reason: pain) Qty: 20 RF: 0 Continue No Known Home Medications RF: 0 Follow up/Referrals: Rohith Terrell MD [Physician] - 04/23/18 12:00 am (Call office for exact appointment time) Provider Discharge Instructions Diet: Diet as Tolerated Diet comment: Continue protein supplementation with Ensure or other product daily Activity: No heavy lifting more than 20 lb for 3 more weeks May walk as much as desired May climb stairs May ride in vehicle No driving while taking opioid pain medication Cold/Heat Therapy: May apply ice pack to incision as needed for comfort Other treatments: May shower Skin/Wound/Dressing Care Report to your healthcare provider any signs of infection, such as:: chills, fever, increased pain and unusual drainage Dressing: Change gauze dressing over drain site as often as needed Colostomy care as directed Do not soak incision in bathtub or pool for 2 more weeks Other wound treatment: Steri-Strips will spontaneously peel-away within next several days Visit Report/Discharge Packet Instructions: How to Care for Your Colostomy or Ileostomy, Hydrocodone Combination Products, DI for Diverticulosis, Colostomy / Ileostomy Visit Report Forms: Stroke Signs & Symptoms Discharge Data Attending Provider: Rohith Terrell Admit Date/Time: 04/08/18 11:34 Discharges patient from system. Discharge Date/Time: 04/18/18 11:43
--- NOTE | 2018-04-18 13:26 | CM.DPC ---
DCP: continued: case received and was alerted that pt had a d/c order today and had already left for home. Spoke with SADIA Nicole who noted that Dr. Terrell had come in (his d/c summary not at that time available) and ok'd pt for home. She noted she was unaware that home health process had not been completed. Noted that [facility] had been given the referral yesterday and still needed HH orders and Face/Face. Located Dr. Terrell in his clinic and now have the completed Face Face and HH RN/PT/OT orders. All is faxed to [facility]. Requested that [facility] call the patient at home with the details as to when they will be able to see her.
== END 2018-04-18 11:43 | disposition home health service (06) | DRG 329 ==
LOC: ED 07:18 → AC 11:35 → ICU 04-09 07:09 → AC 04-14 14:52 → ICU 02-25 15:24 → AC 02-25 15:25 → ICU 02-25 15:25
PROVIDERS: Admitting Provider Surgery; Emergency Provider Emergency Medicine; Visit Provider Surgery
PROC: 0DBN0ZZ Excision of Sigmoid Colon, Open Approach (ICD-10-PCS; CPT 49000; principal; 2018-04-09 14:30)
DX: K57.20 Diverticulitis of large intestine with perforation and abscess without bleeding (principal); E43 Unspecified severe protein-calorie malnutrition; R44.3 Hallucinations, unspecified; J45.901 Unspecified asthma with (acute) exacerbation; Z68.1 Body mass index [BMI] 19.9 or less, adult; K56.7 Ileus, unspecified; I48.91 Unspecified atrial fibrillation; T40.2X5A Adverse effect of other opioids, initial encounter; E87.6 Hypokalemia; R03.0 Elevated blood-pressure reading, without diagnosis of hypertension
CPT/HCPCS: 36415; 36591; 36592; 36600; 44140; 71045; 74177; 80048; 80053; 82550; 82553; 82805; 82962; 83690; 83735; 84100; 84484; 85014; 85018; 85025; 86850; 86900; 86901; 87070; 87075; 87077; 87186; 87205; 87797; 93005; 94002; 94003; 94640; 94760; 94770; 94799; 96361; 96365; 97116; 97162; 97166; 97530; 97535; 99282; 99285; B4189; C9113; J0330; J0360; J1100; J1170; J1450; J1650; J1940; J2060; J2250; J2270; J2405; J2543; J2704; J3010; J3475; J3480; J7613; Q9967

== ENCOUNTER → 2018-06-29 13:25 | Outpatient (CLI) | payer MEDICARE, OTHER, SELFPAY ==
[2018-04-08 12:22] VITALS: BMI 15.0
[2018-04-10 09:24] VITALS: PULSE 92; RESP 15; O2SAT 97
--- NOTE | 2018-06-29 16:03 | PM.TREADMILL ---
Cardiac Stress Test Report Referral & Results Date Patient Seen: 06/29/18 Requesting provider: Steve Pagan Indication: Shortness of breath Rest ECG: Unremarkable Procedure Note: Today following both written and verbal informed consent, the patient was exercised according to a standard Stanton protocol. The patient exercised for a total of 4 min 56 sec achieving a maximum heart rate of 139. Patient's maximum systolic blood pressure was 210. This was an estimated 7.0 MET's. Test was stopped because of severe dyspnea on the part of the patient. She was also mildly hypoxic There are no ST-T segment changes Patient's low oxygen saturation was 85% Patient was hypertensive throughout Normal blood pressure response Functional aerobic impairment rated 0 on the active scale Impression: No evidence of ischemia Patient demonstrates evidence of significant pulmonary disease Hypertension as above Clinical correlation suggested Please note: Actual ECG tracings can be found in the PACS system.
== END ==
PROVIDERS: Visit Provider Internal Medicine
DX: R06.02 Shortness of breath (principal); J98.4 Other disorders of lung; I10 Essential (primary) hypertension
CPT/HCPCS: 93016; 93017; 93018

== ENCOUNTER 2018-08-07 06:20 | Inpatient (IN) | payer MEDICARE, SELFPAY ==
[2018-04-08 12:22] VITALS: BMI 15.0
[2018-04-10 09:24] VITALS: PULSE 92; RESP 15; O2SAT 97
[2018-08-01 07:52] VITALS: BMI 15.7
[2018-08-02 10:15] VITALS: O2SAT 95
[2018-08-07] VITALS (18 sets, daily range): BP systolic 117–173; BP diastolic 67–96; PULSE 80–103; RESP 9–19; TEMP 36.3–37.2; O2SAT 92–99; BMI 16.6
--- NOTE | 2018-08-07 | PATH_ITS ---
[facility] Accession Number: [id number] . 01 Material submitted: . PART A: DISTAL SIGMOID COLON PART B: APPENDIX . 02 Diagnosis: A. Distal Sigmoid Colon, Partial Sigomid Colectomy: 1. Diverticulosis. 2. Patchy minimal active inflammation with mild distortion of the crypt architecture, consistent with diverticular disease-associated colitis. 3. Negative for granulomas, dysplasia and malignancy. . B. Appendix, Appendectomy: Appendix with no evidence of active inflammation or neoplasm. [facility]/08/09/2018 . 02 Electronically signed: . Estefany Weinstein MD, Pathologist NPI- [id number] . 01 Gross description: . (A) Received in formalin, labeled distal sigmoid colon-sutures are proximal, is a segment of colon (length-7.1 cm, proximal diameter-1.5 cm, distal diameter-1.8 cm) with attached adipose tissue (up to 2.6 cm in depth). Two blue sutures indicate the proximal end. The serosa is medina-pink smooth and shiny. The mucosa is medina with distorted folds containing diffuse diverticula. No nodules, masses or lesions are identified. The resection margins are inked black. Section code: (A1) proximal resection margin, longitudinal u.s. representative; (A2) distal resection margin, longitudinal u.s. representative; (A3-A5) colon segment, u.s. representative serial sections submitted proximal to distal. (B) Received in formalin, labeled appendix, is an intact appendix (length-6.8 cm, diameter-0.7 cm) with medina-pink smooth shiny serosa and attached mesoappendix (up to 1.0 cm in depth). The resection margin is received crimped closed. The lumen contains brown solid soft material. The wall is up to 0.2 cm thick. No nodules, masses or lesions are identified. The resection margin is inked black. Serially sectioned and entirely submitted proximal to distal in cassettes B1-B2 with the tip bivalved and entirely submitted in cassette B3. Specimen entirely submitted. ([id number]) /MRV . 02 Pathologist provided ICD-10: K57.90 . 02 CPT . 896506, [id number] Performed at: 01 [facility] [address] [address], [place], [place] [id number] MD Chon Scott MD Phone: [phone] Performed at: 02 [facility] [address] [place] [id number] MD Estefany Weinstein MD Phone: [phone]
[2018-08-07] MEDS: LACTATED RINGERS 1,000 ML 42 ML IV ×3 (07:25→12:36)
--- NOTE | 2018-08-07 07:37 | PM.PREOP ---
Pre-operative Note Interval Note History & Physical reviewed/Exam performed by Physician: Yes Changes to H&P: No H&P completed within 30 days and has changed as indicated here:: Patient seen and examined in the preoperative area today. Her history and physical examination from approximately 12 days ago is on the chart and remains unchanged. We will proceed with colostomy reversal today as planned.
[2018-08-07 08:06] LABS: Add Manual Diff / Slide Review NO; Basophils Absolute Auto 0 /uL (0-100); Basophils Percent Auto 0.4 % (0-2); Eosinophils Absolute Auto 100 /uL (0-450); Eosinophils Percent Auto 2.4 % (2-4); Hematocrit 44.8 % (36-46); Hemoglobin 14.9 g/dL (12.0-16.0); Lymphocytes Absolute Auto 1100 /uL (1100-4500); Lymphocytes Percent Auto 20.4 % (25-40); Mean Corpuscular HGB Conc 33.2 % (30-36); Mean Corpuscular Hemoglobin 29.6 PG (26-34); Mean Corpuscular Volume 89.2 fL (80-100); Monocytes Absolute Auto 300 /uL (0-900); Monocytes Percent Auto 6.5 % (3-14); Neutrophils Absolute Auto 3700 /uL (1500-7000); Neutrophils Percent Auto 70.3 % (50-75); Platelet Count 225 X10^3/uL (150-400); Red Blood Cell Count 5.03 X10^6/uL (4.0-5.2); Red Cell Distribution Width 12.8 % (11.6-14.8); White Blood Cell Count 5.2 X10^3/uL (4.5-11.0)
[2018-08-07] MEDS: metroNIDAZOLE 500 MG/100 ML PIGGYBACK 100 MG IV ×3 (08:07→23:28)
[2018-08-07] MEDS: levoFLOXacin 500 MG/100 ML PIGGYBACK 100 MG IV (08:12)
[2018-08-07 08:21] LABS: Alanine Aminotransferase 30 IU/L (9-52); Albumin 4.3 g/dL (3.5-5.0); Albumin Globulin Ratio 1.9 (1.0-2.8); Alkaline Phosphatase 67 U/L (38-126); Aspartate Aminotransferase 25 IU/L (14-36); BUN Creatinine Ratio 21.3 (6-22); Bilirubin Total 0.7 mg/dL (0.2-1.3); Blood Urea Nitrogen 17 mg/dL (7-17); Calcium 9.3 mg/dL (8.4-10.2); Carbon Dioxide 25 mmol/L (22-32); Chloride 102 mmol/L (98-107); Estimated Glomerular Filt Rate > 60.0 mL/min (>60); Globulin 2.3 g/dL (1.7-4.1); Glucose 102 mg/dL (80-110); HEMOLYSIS < 15 (0-50); Potassium 4.1 mmol/L (3.4-5.1); Sodium 137 mmol/L (137-145); Total Protein 6.6 g/dL (6.3-8.2)
--- NOTE | 2018-08-07 09:03 | SUR.OPER ---
Lithotomy on padded OR bed, head on pillow, arms tucked at sides with gel padding. Legs secured in padded yellow fins stirrups.
[2018-08-07] MEDS: fentaNYL 100 MCG/2 ML INJ 25 MCG IV ×2 (12:25→12:30)
[2018-08-07] MEDS: HYDROMORPHONE 2 MG INJ 0.25 MG IV ×8 (12:40→13:15)
[2018-08-07] MEDS: METOCLOPRAMIDE 10 MG/2 ML INJ IV (12:51)
--- NOTE | 2018-08-07 12:51 | P.OP_ITS ---
Operative Date/Time/Diagnoses Date of procedure: 08/07/18 Time of procedure: 12:31 Pre-op diagnosis: Existing descending end colostomy status post Lea procedure for perforated diverticulitis Post-op diagnosis: same Procedure & Clinicians Procedure: 1. Laparotomy with lysis of adhesions 2. Mobilization of splenic flexure 3. Reversal of existing end colostomy with colocolonic hand-sewn anastomosis 4. Partial sigmoid colectomy 5. Incidental appendectomy 6. Rigid sigmoidoscopy to assess patency and integrity of anastomosis Same procedure as scheduled: Yes Indications: 78-year-old female status post emergent Lea procedure for perforated sigmoid diverticulitis and pelvic abscess who presents now for episcopalian of bowel continuity. Laparotomy with colocolonic versus colorectal anastomosis was recommended. Surgeon: Rohith Terrell Customer Service Sales Associate: Varsha Stiles Click Yes if Unassisted: No Anesthesia Type: General Operative Notes Findings: 1. Existing viable descending end colostomy in left lateral abdomen 2. Adhesions between omentum, small bowel, and left colon extending into the pelvis 3. Rectosigmoid defunctionalized stump marked by previously placed Prolene suture 4. Distal end of remaining sigmoid colon containing significant diverticulosis without evidence of inflammation, infection, or abscess anywhere in the abdomen or pelvis 5. Grossly normal-appearing postmenopausal ovaries and uterus 6. Intact left ureter in normal anatomic position throughout the case 7. Widely patent colocolonic anastomosis above the peritoneal reflection without evidence of air leakage via rigid sigmoidoscopy 8. Nasogastric tube within an otherwise normal stomach in good position subsequently placed intermittent suction 9. 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 She had completed appropriate preoperative bowel preparation. After satisfactory induction of anesthesia she was placed in dorsal lithotomy position. All pressure points were meticulously padded appropriately. SCOAP time out was performed per standard protocol. The existing colostomy was closed at the level of the skin using a pursestring 0 Prolene suture. Montejo catheter was placed to decompress the urinary bladder and left in place throughout the case. Abdomen and perineum were then prepped and draped in usual sterile fashion. Vertical midline incision was created from above the umbilicus to the suprapubic region incorporating the existing scar using 10 scalpel blade. Bovie was used to achieve hemostasis and carried the dissection down to the level the rectus fascia. Fascia was divided in the midline above the umbilicus where the underlying peritoneum was then visualized. Peritoneum was entered between hemostats with Metzenbaum scissors under direct visualization. Surgeon's finger was then inserted and adhesions swept away inferiorly as the remaining portion of the fascia was then opened over the surgeon's finger with the Bovie. Lindsey clamps were applied to the fascia bilaterally and all adhesions were then taken down from the anterior abdominal wall using a combination of Metzenbaum scissors and the Bovie. Bookwalter retractor was then inserted to provide exposure. Further adhesions throughout the entire abdomen and pelvis were then taken down sharply with the Metzenbaum scissors. Great care was taken to avoid injury to adjacent loops of intestine. Hemostasis was achieved with a combination of the Bovie and 2 0 silk ties. Once all the adhesions had been divided the bowel was evacuated from the peritoneum and the previously placed Prolene sutures were identified along the residual distal sigmoid colon left at the time of her initial Lea procedure. Again, all findings are as above. Skin incision was then created circumferentially around the existing colostomy using 15 scalpel blade. Bovie was used to achieve hemostasis and carried the dissection down through the subcutaneous tissue to the rectus fascia. Meticulous dissection using Metzenbaum scissors was employed to liberate the colon from its adhesions to the abdominal wall and rectus fascia. Bowel was then replaced back into the abdominal cavity. The existing colostomy was then divided back to normal colon with a single application of the Endo JUAN 55 mm stapler. Attention was then turned to mobilization of the residual descending colon and splenic flexure. This was accomplished with Metzenbaum scissors along the peritoneal reflection. Great care was taken avoid injury to the left kidney, left ureter, and spleen. All of these structures were clearly identified throughout the case in great care taken to preserve them without injury. Once adequate length of the proximal colon had been achieved it was noted to lie easily into the pelvis adjacent to the residual rectosigmoid stump without any tension whatsoever. In addition, the bowel was clearly viable with excellent blood flow. Patient was placed in Trendelenburg position and dissection of the rectosigmoid stump ensued using sharp dissection implying the Metzenbaum scissors and Bovie. The bowel was then elevated into the operative field where there was significant residual diverticulosis of the distal sigmoid colon. The mesentery of this portion of the bowel was divided between hemostats and secured with 2 0 silk ties. The bowel was then divided below the diverticula to normal appearing viable bowel using a single application of the Endo JUAN 55 mm stapler. Specimen was sent for permanent section. The proximal bowel was then brought adjacent to the distal bowel and I elected to perform a hand-sewn 2 layer [id number] anastomosis. Great care was taken to avoid torsion of the bowel loops. A posterior row of interrupted 3 0 silk seromuscular Lembert sutures were applied. Bowel clamp was applied proximally. Proximal and distal bowel loops were then opened with the Bovie for several cm. Inner layer of full-thickness running 3 0 Vicryl sutures were then placed. The anterior sutures were applied in a running Christiana fashion. An anterior layer of additional 3 0 silk seromuscular Lembert sutures were then applied to complete the anastomosis. The existing staple lines at the ends of the proximal and distal bowel loops were then oversewn with interrupted 3 0 silk suture as well. The anastomosis was then placed into the pelvis easily without tension. Again, there was excellent blood flow to the anastomosis proximally and distally. Dr. Stiles then performed rigid sigmoidoscopy after I had filled the pelvis and abdomen with sterile saline irrigation. The anastomosis was widely patent and the bowel insufflated easily to the level of the existing bowel clamp proximally. There was absolutely no evidence of any air leakage or bubbles as she applied pressure with the sigmoidoscope. She was also able to clearly visualize the anastomosis which was hemostatic, widely patent, and showed no evidence of any abnormalities. The air was then evacuated and the scope removed. Bowel clamp was removed. Instruments and gloves were changed. Bowel was replaced into its usual anatomic position and hemostasis verified after additional irrigation was performed. Patient was replaced into the supine position as well from Trendelenburg position. Nasogastric tube had been inserted per the anesthesiology service which was verified in good position. Instrument sponge counts were noted to be correct. The Bookwalter retractor was removed and the midline fascia was closed with 2 individual running 1 Prolene sutures tied in the midline. Fascia at the previous colostomy site was closed with 2 individual 1 Prolene sutures tied in the midline as well. Subcutaneous tissue was irrigated with copious amounts of sterile saline solution. Midline incision was closed with jayne. The incision at the previous colostomy site was closed with 3 individual interrupted 2 0 nylon suture placed in a vertical mattress fashion then 0.5 inch iodoform packing was placed between the sutures. Sterile dressings were then applied. Patient was returned to the supine position from dorsal lithotomy position and anesthesia reversed. She was extubated in the operating room and taken to recovery in stable condition. Complications: none Condition: stable Disposition: PACU Plan for aftercare: 1. Admit to acute care unit for ongoing convalescence 2. Await bowel function
--- NOTE | 2018-08-07 13:54 | SUR.PHASEI ---
fentanyl meds given from anesthesia dose syringe that was labled and reported to me from dr tahmina mora
[2018-08-07] MEDS: SODIUM CHLORIDE 0.9% 1,000 ML 75 ML IV (14:25)
[2018-08-07] MEDS: ONDANSETRON 4 MG/2 ML INJ IV ×2 (14:40→19:54)
--- NOTE | 2018-08-07 16:15 | PC.NURSE ---
Post-op: Late entry Arrived to room 218 at 1345. Sleeping quietly, but easily awakened to voice/touch. VSS. Denied pain, stated it's not a problem. [employer] set up and proper use reviewed with patient and her , emphasized that only the patient is to push the button (as a safety mechanism) and verbalized understanding. IV fluids per order, site in R FA WNL. NG well-secured in R nare and connected to LIS. No NG output from [id number]. Nausea improved after IV Zofran- no emesis. HOB elevated 30 degrees. Bulky dressing to midline abd C/D/I. Montejo to gravity. SCD's placed to BLE's. Oriented to room and call light, encouraged to make needs known. Bed alarm on.
[2018-08-07] MEDS: PANTOPRAZOLE 40 MG VIAL IV (16:23)
[2018-08-07] MEDS: ENOXAPARIN 30 MG/0.3 ML SYRINGE SUBCUT (20:54)
[2018-08-07] MEDS: HYDROMORPHONE PCA 6 MG/30 ML PCA.VIAL IV (21:52)
[2018-08-08] VITALS (10 sets, daily range): BP systolic 118–154; BP diastolic 68–88; PULSE 93–117; RESP 14–16; TEMP 36.4–37.1; O2SAT 89–96
[2018-08-08] MEDS: ONDANSETRON 4 MG/2 ML INJ IV ×2 (04:09→11:27)
[2018-08-08] MEDS: SODIUM CHLORIDE 0.9% 1,000 ML 75 ML IV (05:16)
--- NOTE | 2018-08-08 06:02 | PC.NURSE ---
Shift Note: Pt has had intermittent nausea, dosed with Zofran per MAR. Checked patency of NG tube and found to be draining well. Inquired with pt if nausea was related to ice chip consumption and she believed it could possibly be and has decided to refrain at the time from eating more.
[2018-08-08] MEDS: HYDROMORPHONE PCA 6 MG/30 ML PCA.VIAL IV (06:13)
[2018-08-08 06:26] LABS: Add Manual Diff / Slide Review NO; Basophils Percent Auto 0.3 % (0-2); Hematocrit 40.7 % (36-46); Hemoglobin 13.3 g/dL (12.0-16.0); Lymphocytes Percent Auto 4.6 % (25-40); Mean Corpuscular HGB Conc 32.7 % (30-36); Mean Corpuscular Hemoglobin 29.4 PG (26-34); Mean Corpuscular Volume 89.8 fL (80-100); Monocytes Percent Auto 5.5 % (3-14); Neutrophils Percent Auto 89.6 % (50-75); Platelet Count 200 X10^3/uL (150-400); Red Blood Cell Count 4.53 X10^6/uL (4.0-5.2); Red Cell Distribution Width 12.8 % (11.6-14.8)
[2018-08-08 06:27] LABS: BUN Creatinine Ratio 26.3 (6-22); Basophils Absolute Auto 100 /uL (0-100); Blood Urea Nitrogen 21 mg/dL (7-17); Calcium 8.4 mg/dL (8.4-10.2); Carbon Dioxide 22 mmol/L (22-32); Chloride 108 mmol/L (98-107); Eosinophils Absolute Auto 0 /uL (0-450); Estimated Glomerular Filt Rate > 60.0 mL/min (>60); Glucose 143 mg/dL (80-110); HEMOLYSIS < 15 (0-50); Lymphocytes Absolute Auto 800 /uL (1100-4500); Monocytes Absolute Auto 1000 /uL (0-900); Neutrophils Absolute Auto 15900 /uL (1500-7000); Potassium 4.4 mmol/L (3.4-5.1); Sodium 137 mmol/L (137-145)
[2018-08-08 06:55] LABS: White Blood Cell Count 17.8 X10^3/uL (4.5-11.0)
--- NOTE | 2018-08-08 08:40 | PM.PN.1 ---
Subjective Date Patient Seen: 08/08/18 Time Patient Seen: 08:40 Interval history: Patient complaining of nausea despite nasogastric tube in place and functioning well. No vomiting however. She has had some dry heaves. Zofran offer some intermittent mild relief but not completely. Montejo catheter remains in place. She denies any significant pain but otherwise well controlled with INSURANCE SOLICITOR. Denies any fever or chills. No chest pain or shortness of breath. Exam Vital Signs (past 8 hours): - 08/08/18 05:00 08/08/18 07:25 08/08/18 07:35 Temperature 97.7 F Pulse Rate 100 H Respiratory Rate 16 Blood Pressure 124/73 Pulse Oximetry 96 96 93 08/08/18 07:38 Temperature 97.8 F Pulse Rate 98 H Respiratory Rate 16 Blood Pressure 132/69 Pulse Oximetry 92 Fraction of Inspired Oxygen 21 Oxygen Delivery Method Room Air Oxygen Flow Rate 0 Narrative Exam Narrative: Elderly female lying comfortably in bed in no acute distress. Alert oriented x3. She is in good spirits. Her is at the bedside throughout my visit No fevers. She was mildly tachycardic last evening but this is resolving. Blood pressure has been stable. Urine output is adequate with about 500 cc overnight. Urine is clear in the Montejo bag. Nasogastric tube output has been essentially minimal and is consistent with clear fluid only. I personally popped the blue port and the tube is clearly functioning well. Chest clear to auscultation bilaterally with regular rate rhythm. No wheezes or crackles. Abdomen is soft and nondistended. Dressing is clean, dry, and intact without soilage. She is appropriately tender but without guarding or rebound. Extremities show no clubbing or cyanosis Objective Labs Result Diagrams: 08/08/18 05:48 08/08/18 05:48 Labs: Laboratory Results - last 24 hr 08/07/18 08/08/18 08/08/18 07:50 05:48 05:48 WBC 17.8 H D RBC 4.53 Hgb 13.3 Hct 40.7 MCV 89.8 MCH 29.4 MCHC 32.7 RDW 12.8 Plt Count 200 Neut % (Auto) 89.6 H Lymph % (Auto) 4.6 L [place] % (Auto) 5.5 Eos % (Auto) 0.0 L Baso % (Auto) 0.3 Neut # (Auto) 78245 H Lymph # (Auto) 800 L [place] # (Auto) 1000 H Eos # (Auto) 0 Baso # (Auto) 100 Sodium 137 Potassium 4.4 Chloride 108 H Carbon Dioxide 22 BUN 21 H Creatinine 0.80 Estimated GFR > 60.0 BUN/Creatinine Ratio 26.3 H Glucose 143 H Calcium 8.4 Antibody Screen Negative leukocytosis today of unclear etiology. I suspect postoperative inflammatory response but she certainly has no evidence of infectious complications. Assessment & Plan Plan: Assessment/Plan Narrative: 78-year-old female postoperative day 1 from colostomy reversal with incidental appendectomy who is stable. I will add Reglan for the nausea. Continue nasogastric tube despite low output. I suspect she will have somewhat of an ileus after the extensive dissection required to mobilize the colon. Hemoglobin is stable and electrolytes appear otherwise normal. I will change to half-normal saline today as her chloride is somewhat high. Discontinue Montejo catheter. Physical therapy evaluation today for ambulation and mobilization. I plan to change the dressing tomorrow and remove the packing from the colostomy site. Encouraged cough, deep breathing, and incentive spirometry. All questions were answered to her satisfaction, and she voiced understanding. Orders were written. Quality VTE Deep Vein Thrombosis/Pulmonary Embolism Present on Admission: No
[2018-08-08] MEDS: levoFLOXacin 750 MG/150 ML PIGGYBACK 100 MG IV (08:53)
[2018-08-08] MEDS: PANTOPRAZOLE 40 MG VIAL IV (08:53)
[2018-08-08] MEDS: DEXTROSE 5%-0.45NS W/KCL 20MEQ 1,000 ML 65 MEQ IV (08:54)
[2018-08-08] MEDS: METOCLOPRAMIDE 10 MG/2 ML INJ IV (09:41)
[2018-08-08] MEDS: ENOXAPARIN 30 MG/0.3 ML SYRINGE SUBCUT (09:41)
--- NOTE | 2018-08-08 09:58 | PT.IIE ---
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) Surgery Performed Operation Date: 08/07/18 07:45 Actual Procedures p laparotomy with reversal of end colostomy, colocolonic anastimosis, incidental appendectomy, and mobilization of splenic flexure - Rohith Terrell MD Surgical History (Last Updated 08/01/18 @ 09:06 by Akila Klein, RN) History of partial colectomy (Acute) Status post colostomy (Acute) Medical History (Last Updated 08/03/18 @ 10:24 by Akila Klein, RN) Bruises easily (Acute) Constipation (Acute) Diverticulosis (Acute) History of migraine (Acute) Insomnia (Acute) Perforated viscus (Acute ~03/2018) TIA (transient ischemic attack) (Acute ~2010) Moderate protein-calorie malnutrition (Resolved) Pelvic abscess in female (Resolved) Perforation of intestine due to diverticulitis of gastrointestinal tract (Resolved) Physical Therapy Inpatient Evaluation/Re-Eval M1 PT/OT-IP Prior Functional Status Start: 08/08/18 12:53 Freq: NEEDED Status: Active Protocol: Document 08/08/18 09:58 AB (Rec: 08/08/18 13:07 AB [email or web address]) Medical Review Prior Functional Status Medical History Reviewed Yes Communication able to make needs knwon Mobility and Gait pt stated that she is indpeendent with all mobilities and ambultion without AD Social History Household Members spouse Living Arrangements House Number of Floors (Floors) Two Floors Number of Stairs To Enter/Railing? 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 Grab Bars In Shower Additional Social History Comment has sink/counter next to the toilet has a transport w/c at home and stated that she sometimes uses that as a walker M2 PT-IP Current Condition Start: 08/08/18 12:53 Freq: NEEDED Status: Active Protocol: Document 08/08/18 09:58 AB (Rec: 08/08/18 13:07 AB [email or web address]) Physical Therapy Current Condition Current Condition Evaluation Date 08/08/18 Treatment Diagnosis s/p colostomy reversal; difficulties in walking Onset Date 08/07/18 Precautions Abdominal Surgery Precautions Log Roll Lifting Restrictions Gait Belt above Incisional Area M3 PT-IP Subjective Start: 08/08/18 12:53 Freq: NEEDED Status: Active Protocol: Document 08/08/18 09:58 AB (Rec: 08/08/18 13:07 AB [email or web address]) Subjective Physical Therapy Visit Type Type Initial Evaluation Visit Start Time 09:58 Visit Stop Time 10:34 Total Visit Minutes 36 Number of QUALITATIVE FIELD COORDINATOR Visits 0 Physical Therapy Visit Comments Patient Comments pt agreeable to do PT Therapy Pain Assessment Pain When Pain Assessed At Rest Pain Present Pain Present Pain Reported Location Right Lower Abdomen Scale Used pain scale not stated Pain Management Techniques Modification of Treatment Re-positioning Timing of Activity with Medications M4 PT-IP Mobility and Gait Start: 08/08/18 12:53 Freq: NEEDED Status: Active Protocol: Document 08/08/18 09:58 AB (Rec: 08/08/18 13:07 AB [email or web address]) PT-Bed Mobility Assessment Rolling Type of Rolling Log Rolling Supine to Sit Supine to Sit Moderate Assistance 1 Person Assistance PT-Transfer Assessment Sit to and From Stand Sit to and from Stand Moderate Assistance 1 Person Assistance Equipment Transfer Assistive Device Gait Belt Front Wheeled Walker Orthotic/Prosthetic Devices or Brace: No Transfers Transfer Destination Toilet Transfer Technique pt ambulated to the toilet using FWW Transfer Ability Level of Assist Moderate Assistance Maximum Assistance Comments Mobility Comments pt with c/o nausea during mobility. BP 125/78. pt completed supine to sit mdo A and cues. was able to sit on EOB SBA. pt completed sit to stand mod A and ambulated to the toilet using FWW mod to max A and max cues. (+) LOB towards end of ambulation requiring max A for stability. pt with c/o nausea. pt required max A for controlled descent to the toilet. pt completed sit to stand from the toilet using grab bar mod A and cues and was able to take ~ 5 steps to transfer to the chair using FWW. required assist with maneuvering of FWW. pt positioned on chair. call light and table placed within reach. Gait Assessment Gait Gait Assistance Required: Moderate Assistance Maximum Assistance 1 Person Assist Distance (Feet) 15 Able to Maintain Weight Bearing Status Yes During Gait Assistive Devices Assistive Device Gait Belt Front Wheeled Walker Factors Limiting Gait Function Factors Limiting Gait Function Decreased Activity Tolerance Decreased Strength Limited Range of Motion Pain Poor Balance Poor Safety Awareness PT-Balance Assessment Sitting Balance and Reactions Static Sitting Balance Ability Good Dynamic Sitting Balance Ability Fair Standing Balance and Reactions Static Standing Balance Ability Poor Dynamic Standing Balance Ability Poor Device Used FWW M5 PT-IP Objective Assessments Start: 08/08/18 12:53 Freq: NEEDED Status: Active Protocol: Document 08/08/18 09:58 AB (Rec: 08/08/18 13:07 AB [email or web address]) Orientation Orientation/Cognition Level of Alertness Alert Orientation Name Age Birthday Place Situation Safety Awareness Decreased Safety Awareness Gross Range of Motion Lower Extremity ROM Assessment Within Functional Limits Strength Lower Extremity Strength Assessment Bilaterally Impaired Comments Strength Comments LLE : 3+/5 RLE 4-/5 Sensation Assessment Sensation Gross Sensation WNL Muscle Tone Muscle Tone WNL Yes M6 PT-IP Treatment Start: 08/08/18 12:53 Freq: NEEDED Status: Active Protocol: Document 08/08/18 09:58 AB (Rec: 08/08/18 13:07 AB [email or web address]) Physical Therapy Treatment Education Education Provided Precautions Safety M7 PT-IP Assessment and Plan Start: 08/08/18 12:53 Freq: NEEDED Status: Active Protocol: Document 08/08/18 09:58 AB (Rec: 08/08/18 13:07 AB [email or web address]) PT Summary Assessment and Plan Potential Rehabilitation Potential Fair Status of Condition at Evaluation Evolving Summary Impairments Pain ROM Strength Balance Coordination Sensation Tone Cognition Bed Mobility Transfers Gait Activity Tolerance Assessment Summary pt requiring mod ot max A with mobility and presents with decrerase activity tolerance. pt with c/o nausea during tx session. pt at this time will require SNF rehab to improve strength and function prior to d/c home. will continue to assess. Goals Bed Mobility Goal Standby Assistance Transfer Goal Standby Assistance Front Wheeled Walker Gait Goal Standby Assistance Front Wheel Walker Gait Distance 100 Days to Meet Goals 10 Frequency of Treatment Frequency Of Treatment Once a Day Treatment Plan Physical Therapy Treatment Plan Bed Mobility Training Transfer Training Gait Training Therapeutic Exercise Balance Retraining Discharge Planning Hot or Cold Pack Neuromuscular Re-ed Coordination Retraining Manual Therapy Other Recommendations and Next Treatment ambulation Focus Recommendations To Nursing Amount of Assist Needed 1 Person Assist Discharge Recommendations PT Discharge Recommendations SNF Rehab Equipment Needed for Home Before FWW: if going home Discharge
--- NOTE | 2018-08-08 11:25 | CM.DANOTE ---
Patient is a 78 year old female who was admitted on 08/07/18 for colostomy reversal. Pt has [facility] for insurance and her PCP is Dr. Steve Pagan. EMR was reviewed. Per Surgeon, pt currently has NG tube and some occasional nausea and ordered PT for ambulation. PT eval pending. SW met bedside with pt and explained role and pt confirmed that she still lives at home with her in [place] and is Independent with ADL's at baseline. Pt's spouse is still her DPOA. Pt was last discharged from [facility] in Mar 2018 and was set up with [facility] and was discharged from their service a couple months later and is not currently open with any HH or supportive services. Pt feels HH was quite helpful and would be agreeable to HH again if needed. PT eval still pending and SW needs unclear at this time. Plan: SW to continue to follow for pt medical progress and PT eval and recommendations to confirm if pt is safe for d/c home with spouse and possible HH. JING Nelson Discharge Planning/Care Management CM Discharge Assessment Start: 08/08/18 11:23 Freq: Status: Active Protocol: Document 08/08/18 11:23 BF (Rec: 08/08/18 11:25 [email or web address]) Discharge Planning Assessment Assigned Medical Receptionist Medical Assistant JING Garrison DPOA/Assigned Designee Name Spouse Velit Contact Information [phone] Advance Directives? No Advance Directives on File No History Provided By Patient Significant Other Medical Record Has Patient been admitted in last 30 No days? Comment Last admitted Mar 2018 Prior Living Arrangements House Household Members spouse Type of transporation used prior to Drives own vehicle admit Independent with ADL's Yes Is patient alert and oriented? Yes Caregiver for Another No DME Already Rented / Owned FWW / Walker Comment Waiting for PT eval and medical needs to determine d/c needs Discharge Plan Home Transportation Arrangement Likely spouse can provide transport if safe for home Additional Comment Waiting for PT eval Whiteboard Updated in Patient Room with Yes name and ext. # of Medical Receptionist Medical Assistant Review Status In Process Please Provide Date Initial DC 08/08/18 Assessment Was Performed Next Review Type Continued Stay Review Pre-Anesthesia Assessment Start: 08/01/18 07:52 Freq: Status: Complete Protocol: Document 08/01/18 07:52 VLJ (Rec: 08/01/18 07:55 [id number] [email or web address]) Pre-Anesthesia Assessment Patient Also Known As Stein (AKA) Patient Information Reviewed Via Chart Review Phone Assessment Assessment Completed With Patient Primary Care Provider Steve Pagan Seen Specialist in Last 12 Months Yes Specialist Seen General surgeon Primary Language Ecuadorean Compliance Reviewer Required No Height 162.56 cm Weight 41.73 kg Body Mass Index (BMI) 15.7 Hearing Ability Normal Visual Impairment Blind Visual Assist Glasses Dentition Type Full- Upper & Lower Barriers to Learning Visual Comment Legally blind, drives w/ glasses Anesthesia Review Requested No 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 No alcohol intake current alcohol intake frequency a few times a month Smoking Status Former smoker Tobacco type cigarettes Smoking cigarettes per day 1 Has it been 2 weeks or less since No patient quit smoking how long ago did patient quit smoking 04/10 Substance Use Type does not use Comment History began ~18 cigs/day, reduced to 1-2/day prior to dc Pain Present Denied Pain History of Falling (Recent or History of Yes ) Patient is completely paralyzed or No completely immobile Ambulatory Aid None/bed rest/nurse assist Gait/Transferring Normal/bedrest/immobile Mental Status Oriented to own ability Comment Slipped on ice Is patient on oxygen? No Does patient have MALDONADO/SOB Yes: Exertional asthma Hx Sleep Apnea No Will Bring CPAP/BIPAP DOS No Suspected Sleep Apnea No Currently Taking a Beta Lexi No Can You Climb a Flight of Stairs Without No SOB Hx Chest Pain No Hx SOB Yes Hx Syncope or Dizziness No Anti-Coagulant Therapy No Has a Blast Furnace Helper No: Philippe Cardiac Testing Yes: Stress Test Neg per pt - neg Hx Pacemaker/ICD No Pacemaker Rep Required? No Cardiac Clearance Received Not Applicable Diet Type At Home Regular Low Sodium dysphagia No Bladder Pattern Nocturia Urinary Catheter Present No Hx Urinary Self Catheterization No Diabetes No Patient No Lactating No Hx Drug Resistant Organism No Presence of External or Internal Medical No Devices Have you traveled outside the [place] in the last 30 days? Marital Status Lives With spouse Prior Living Arrangements House Number of Floors (Floors) Two Floors Number of Stairs To Enter/Railing? No stairs into home; able to stay on upper level post-op ( main level) Support System Family Friend(s) Spouse Does the Patient Have Assistance After Yes Surgery Patient Discharge Plan Description Home Health Comment [id number]/spouse helpful Feels Safe in Current Environment Yes Been Physically Hurt or Threatened By a No Person in Current Environment Do you have thoughts of harming yourself None or others? Are you currently considering suicide? No Do you have a plan to hurt yourself or No Plan others? Do You Have Any Spiritual Beliefs That No May Affect Your HC Choices? Do You Have Any Cultural Practices That No May Affect Your HC Choices? Spiritual Referral None Comment cross between Buddism and Who Can We Speak to About Patient's Care Friends & Family Identifying Code for Release of Patient Declined Information Health Care Proxy/Next of Kin Spouse - Shimon Suarez Health Care Proxy cell [phone] home Emergency Contact Name Shimon Suarez Emergency Contact cell [phone] home Advance Directives? No: REGISTRATION WILL REQUEST Advance Directives on File No Power of Billing Collections Specialist No PAC Instructions Assistance for 24 hours post- op Do not shave/clip surgical site Medications to take/avoid No ETOH/petroleum product on skin DOS NPO Post-op transportation Pre-op antibiotic Pre-surgical wash Sensory aids Sturdy shoes/comfortable clothes Do not bring valuables and remove jewelry Comment Check-in [id number]
[2018-08-08] MEDS: SODIUM CHLORIDE 0.9% 500 ML 250 ML IV (14:58)
[2018-08-08] MEDS: MORPHINE 2 MG/ML INJ IV ×2 (16:46→21:24)
[2018-08-08] MEDS: SODIUM CHLORIDE 0.9% 500 ML 1000 ML IV (21:25)
[2018-08-08] MEDS: ALBUTEROL/IPRATROPIUM 3 ML AMPUL INH (21:28)
--- NOTE | 2018-08-08 21:56 | PC.NURSE ---
Addendum entered by Clarice Stanley R.N. 08/08/18 23:26: Also made Dr. Stiles aware of x 1 episode of visual hallucination post MS 2 mg IV. Patient is not alert and oriented after one time episode. states it has happened before. Original Note: Addendum entered by Clarice Stanley R.N. 08/08/18 23:24: Patient unable to void, after 500 ml bolus and noted with HR 115-116, regular rate, and clear lungs sounds. Made Dr. Stiles aware, obtained order for Normal Saline bolus 1L over 2 hours. Will continue to monitor resp/cardiac status closely. Original Note: Addendum entered by Clarice Stanley R.N. 08/08/18 22:37: Patient placed on O2 via NC due to desaturations 89-90%. Original Note: [place] shift note: Patient attempted to void x 2, second attempt only 10 ml. Bladder scanned with 160 ml. Patient denies fullness or discomfort to bladder. At 2130 Dr. Stiles made aware regarding urine output and HR. New order obtained for Normal Saline Bolus 500 ml, (if no void in [address] Stiles) IV bolus initiated and monitoring VS closely. Patient remain awake, alert, and very pleasant. Dr. Terrell at bedside earlier this shift at 1630. C/O generalized abdominal pain, to incision area. Medicating with 2 mg Morphine IV with adequate pain control . No nausea. Abdominal dressing, CDI. Continue NPO and NGT at low inter. suction with scant amount of green drainage, not enough to measure amount. Continue with IVF. Up out of bed to bedside commode, reports weakness. Call light withing reach
[2018-08-08] MEDS: SODIUM CHLORIDE 0.9% 1,000 ML 500 ML IV (23:37)
[2018-08-09] VITALS (16 sets, daily range): BP systolic 137–184; BP diastolic 83–101; PULSE 93–108; RESP 16–20; TEMP 36.6–36.9; O2SAT 90–97
[2018-08-09] MEDS: DEXTROSE 5%-0.45NS W/KCL 20MEQ 1,000 ML 100 MEQ IV (01:33)
--- NOTE | 2018-08-09 01:43 | PC.NURSE ---
Addendum entered by Yumiko Nielsen R.N. 08/09/18 06:06: Pt has voided an additional 150cc out this shift bringing her total to 425cc. Original Note: Addendum entered by Yumiko Nielsen R.N. 08/09/18 04:56: Pt has voided an additional 225cc out. BP has increased to 180/98 and 178/92. Pt denies headache, dizziness, or symptoms of elevated bp. Pt denies pain at this time as well. Original Note: Shift note: Received pt from evening shift. Pt was started on 1000ml NS bolus at 500ml/hr at start of shift. Pt completed bolus and had an output of 50ml with 197ml retained using bladder scanner. Pt reports no feelings of uncomfortableness or fullness in bladder. Pt reported a history of 5-6 caffeinated beverages/day (tea and coffee) and states she doesn't feel like she had much urine output at home normally. Called Dr Stiles who ordered an additional 500ml NS bolus at 500ml/hr and that urine output status will be addressed in the morning if pt continues to have minimal output. Will continue to monitor systems for signs of fluid overload. Pt appears to be in good spirits and comfortable at this time.
[2018-08-09] MEDS: SODIUM CHLORIDE 0.9% 500 ML IV (02:26)
[2018-08-09] MEDS: ALBUTEROL/IPRATROPIUM 3 ML AMPUL INH ×3 (07:34→17:39)
--- NOTE | 2018-08-09 08:25 | P.PN_ITS ---
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 Morphine has been effective, but she is having minimal pain. In fact, she last took the morphine sometime yesterday afternoon. She slept relatively well. She remains in good spirits. No flatus or bowel function. Does feel subjectively distended. No chest pain or shortness of breath. Was able to urinate for a total of 425 cc on the last shift. Denies any dysuria or hematuria. Exam Vital Signs (past 8 hours): - 08/09/18 03:40 08/09/18 04:20 08/09/18 07:39 Temperature 97.9 F Pulse Rate 108 H 107 H Respiratory Rate 18 20 Blood Pressure 180/98 H 178/92 H Pulse Oximetry 97 95 08/09/18 07:54 08/09/18 07:55 Temperature Pulse Rate Respiratory Rate Blood Pressure Pulse Oximetry 90 L 93 Fraction of Inspired Oxygen 24 Oxygen Delivery Method Nasal Cannula Oxygen Flow Rate 1 Narrative Exam Narrative: Thin elderly female in no acute distress. Alert oriented x3. Her is at the bedside for my entire visit as well. Patient seen with the assistance of the attending nurse, Jaquan Cevallos Chest is clear to auscultation bilaterally without wheezes or crackles. Her respiratory effort is somewhat diminished due to abdominal distention no. She just received a breathing treatment per respiratory therapy as well. She remains on 1 L nasal cannula oxygen with saturations of 93% approximately Abdomen is soft and mildly distended. She is tympanitic without significant bowel sounds. Wound is clean, dry, and intact without erythema or drainage. The previous colostomy site is also clean with minimal erythema of the skin edges. Suture line is intact and the packing is removed today. No significant drainage. Extremities show no clubbing or cyanosis Objective Labs Result Diagrams: 08/08/18 05:48 08/08/18 05:48 Labs: No new laboratory or radiographic studies for review today Assessment & Plan Plan: Assessment/Plan Narrative: 78-year-old female postoperative day 2 from colostomy reversal with incidental appendectomy who overall is doing well. She has a mild postoperative ileus which is not unanticipated given the nature of her surgery. I will clamp the nasogastric tube so that she can't ambulate more aggressively today. I emphasized pulmonary toilet. Although she did not have a significant amount of NG output the fluid is quite bilious. I am uncertain that she will be able to tolerate having it removed later today. However, we will give her trial of clamping over the next 24 hr or so and see how her bowel function progresses. Her fluid deficit seems to have corrected after boluses yesterday. We will continue maintenance IV fluids at 85 cc/hour. She is on DVT prophylaxis with sequential compression devices and Lovenox. Continue the morphine as needed. Out of bed with physical therapy and she may shower today. She has completed her postoperative antibiotics. Repeat CBC and basic metabolic panel tomorrow. At this point we will need to await bowel function and proceed accordingly once the ileus begins to resolve. I discussed all the above with the patient and her in detail. All questions were answered to her satisfaction, and she voiced understanding. Orders were written. Quality VTE Deep Vein Thrombosis/Pulmonary Embolism Present on Admission: No
[2018-08-09] MEDS: ENOXAPARIN 30 MG/0.3 ML SYRINGE SUBCUT (08:52)
[2018-08-09] MEDS: PANTOPRAZOLE 40 MG VIAL IV (08:52)
--- NOTE | 2018-08-09 10:25 | PT.IPTN ---
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) Surgery Performed Operation Date: 08/07/18 07:45 Actual Procedures p laparotomy with reversal of end colostomy, colocolonic anastimosis, incidental appendectomy, and mobilization of splenic flexure - Rohith Terrell MD Physical Therapy Treatment Note M2 PT-IP Current Condition Start: 08/08/18 12:53 Freq: NEEDED Status: Active Protocol: Document 08/08/18 09:58 AB (Rec: 08/08/18 13:07 AB [email or web address]) Physical Therapy Current Condition Current Condition Evaluation Date 08/08/18 Treatment Diagnosis s/p colostomy reversal; difficulties in walking Onset Date 08/07/18 Precautions Abdominal Surgery Precautions Log Roll Lifting Restrictions Gait Belt above Incisional Area M3 PT-IP Subjective Start: 08/08/18 12:53 Freq: NEEDED Status: Active Protocol: Document 08/09/18 10:25 GGD (Rec: 08/09/18 11:36 GGD [id number]) Subjective Physical Therapy Visit Type Type Treatment Note Visit Start Time 10:00 Visit Stop Time 10:25 Total Visit Minutes 25 Number of ICE PULLER Visits 1 Physical Therapy Visit Comments Patient Comments Pt would like to get up out of bed. Therapy Pain Assessment Pain When Pain Assessed At Rest Pain Present Pain Present Pain Reported M4 PT-IP Mobility and Gait Start: 08/08/18 12:53 Freq: NEEDED Status: Active Protocol: Document 08/09/18 10:25 GGD (Rec: 08/09/18 11:36 GGD [id number]) PT-Bed Mobility Assessment Rolling Type of Rolling Log Rolling Supine to Sit Supine to Sit Minimal Assistance 1 Person Assistance Head of Bed Elevated Scooting Scooting to Edge of Bed Standby Assistance PT-Transfer Assessment Sit to and From Stand Sit to and from Stand Contact Guard Assistance 1 Person Assistance Use of Upper Extremities Equipment Transfer Assistive Device Gait Belt Front Wheeled Walker Orthotic/Prosthetic Devices or Brace: No Transfers Transfer Destination Chair Transfer Ability Level of Assist Contact Guard Assistance Use of Upper Extremities Gait Assessment Gait Gait Assistance Required: Contact Guard Assist Distance (Feet) 30 Able to Maintain Weight Bearing Status Yes During Gait Assistive Devices Assistive Device Gait Belt Front Wheeled Walker Gait Deviations General Gait Pattern Decreased Stride Length Decreased Feet Clearance Factors Limiting Gait Function Factors Limiting Gait Function Decreased Activity Tolerance Decreased Strength Limited Range of Motion Pain Poor Balance Poor Safety Awareness M5 PT-IP Objective Assessments Start: 08/08/18 12:53 Freq: NEEDED Status: Active Protocol: Document 08/08/18 09:58 AB (Rec: 08/08/18 13:07 AB [email or web address]) Orientation Orientation/Cognition Level of Alertness Alert Orientation Name Age Birthday Place Situation Safety Awareness Decreased Safety Awareness Gross Range of Motion Lower Extremity ROM Assessment Within Functional Limits Strength Lower Extremity Strength Assessment Bilaterally Impaired Comments Strength Comments LLE : 3+/5 RLE 4-/5 Sensation Assessment Sensation Gross Sensation WNL Muscle Tone Muscle Tone WNL Yes M6 PT-IP Treatment Start: 08/08/18 12:53 Freq: NEEDED Status: Active Protocol: Document 08/08/18 09:58 AB (Rec: 08/08/18 13:07 AB [email or web address]) Physical Therapy Treatment Education Education Provided Precautions Safety M7 PT-IP Assessment and Plan Start: 08/08/18 12:53 Freq: NEEDED Status: Active Protocol: Document 08/09/18 10:25 GGD (Rec: 08/09/18 11:36 GGD [id number]) PT Summary Assessment and Plan Summary Assessment Summary Pt improving with mobility. She needed less assist with bed mobility. She was able to progress gait distance with FWW. She was safe and stable. If continues to progress she may D/C home. Frequency of Treatment Frequency Of Treatment Once a Day Treatment Plan Other Recommendations and Next Treatment ambulation Focus Recommendations To Nursing Amount of Assist Needed 1 Person Assist Discharge Recommendations PT Discharge Recommendations Home with Assistance SNF Rehab
--- NOTE | 2018-08-09 12:01 | PC.NURSE ---
Day shift: Dr Terrell paged at approx 1200 regarding Pt's BP of 181/100. Pt has no c/o headache at this time. Call light in reach.
--- NOTE | 2018-08-09 12:09 | PC.NURSE ---
Day shift: NG tube checked for any residual and there was none.
[2018-08-09] MEDS: DEXTROSE 5%-0.45NS W/KCL 20MEQ 1,000 ML 85 MEQ IV (12:26)
--- NOTE | 2018-08-09 12:38 | PC.NURSE ---
Day shift: Had called Dr Dias earlier about Pt's BP. He was in surgery and said to page Dr Terrell. Dr Terrell paged 2 times now. Will continue to monitor. :Last BP 173/91. No c/o of FRANK. Asymptomatic.
[2018-08-09] MEDS: FUROSEMIDE 20 MG/2 ML VIAL IV (13:04)
--- NOTE | 2018-08-09 22:14 | PC.NURSE ---
Addendum entered by Clarice Stanley R.N. 08/09/18 22:15: 530 ml output this shift Original Note: [place] shift note: Patient awake and alert, Clamped NGT as ordered. No residual noted, no nausea or vomiting. No abdominal distention.
[2018-08-09] MEDS: HYDRALAZINE 20 MG/ML VIAL 10 MG IV (22:21)
[2018-08-10] VITALS (10 sets, daily range): BP systolic 118–150; BP diastolic 65–95; PULSE 85–108; RESP 15–18; TEMP 36.3–36.7; O2SAT 93–96
[2018-08-10] MEDS: DEXTROSE 5%-0.45NS W/KCL 20MEQ 1,000 ML 85 MEQ IV ×3 (00:13→23:46)
[2018-08-10] MEDS: ALBUTEROL/IPRATROPIUM 3 ML AMPUL INH ×3 (05:41→18:06)
[2018-08-10] MEDS: MORPHINE 2 MG/ML INJ IV ×2 (05:57→11:46)
[2018-08-10 06:22] LABS: Add Manual Diff / Slide Review NO; Basophils Absolute Auto 0 /uL (0-100); Basophils Percent Auto 0.4 % (0-2); Eosinophils Absolute Auto 0 /uL (0-450); Hematocrit 37.3 % (36-46); Hemoglobin 12.6 g/dL (12.0-16.0); Lymphocytes Absolute Auto 1100 /uL (1100-4500); Lymphocytes Percent Auto 9.8 % (25-40); Mean Corpuscular HGB Conc 33.9 % (30-36); Mean Corpuscular Hemoglobin 29.7 PG (26-34); Mean Corpuscular Volume 87.7 fL (80-100); Monocytes Absolute Auto 500 /uL (0-900); Monocytes Percent Auto 4.2 % (3-14); Neutrophils Absolute Auto 9700 /uL (1500-7000); Neutrophils Percent Auto 85.6 % (50-75); Platelet Count 197 X10^3/uL (150-400); Red Blood Cell Count 4.25 X10^6/uL (4.0-5.2); Red Cell Distribution Width 12.7 % (11.6-14.8); White Blood Cell Count 11.3 X10^3/uL (4.5-11.0)
[2018-08-10 06:31] LABS: BUN Creatinine Ratio 13.3 (6-22); Blood Urea Nitrogen 8 mg/dL (7-17); Calcium 8.7 mg/dL (8.4-10.2); Carbon Dioxide 26 mmol/L (22-32); Chloride 104 mmol/L (98-107); Estimated Glomerular Filt Rate > 60.0 mL/min (>60); Glucose 131 mg/dL (80-110); HEMOLYSIS < 15 (0-50); Magnesium 1.6 mg/dL (1.6-2.3); Potassium 3.5 mmol/L (3.4-5.1); Sodium 137 mmol/L (137-145)
[2018-08-10] MEDS: ENOXAPARIN 30 MG/0.3 ML SYRINGE SUBCUT (08:20)
[2018-08-10] MEDS: PANTOPRAZOLE 40 MG VIAL IV (08:20)
--- NOTE | 2018-08-10 08:30 | PC.NURSE ---
Day shift: NG tube had no residual at this time. Dressing changed per MD orders. Half dollar sized serous drainage on gauze that was over the old stoma site. Surgical sites well approximated. Sutures and jayne in place. No s/s of infection. Call light in reach.
--- NOTE | 2018-08-10 10:38 | PT.IPTN ---
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) Surgery Performed Operation Date: 08/07/18 07:45 Actual Procedures p laparotomy with reversal of end colostomy, colocolonic anastimosis, incidental appendectomy, and mobilization of splenic flexure - Rohith Terrell MD Physical Therapy Treatment Note M2 PT-IP Current Condition Start: 08/08/18 12:53 Freq: NEEDED Status: Active Protocol: Document 08/08/18 09:58 AB (Rec: 08/08/18 13:07 AB [email or web address]) Physical Therapy Current Condition Current Condition Evaluation Date 08/08/18 Treatment Diagnosis s/p colostomy reversal; difficulties in walking Onset Date 08/07/18 Precautions Abdominal Surgery Precautions Log Roll Lifting Restrictions Gait Belt above Incisional Area M3 PT-IP Subjective Start: 08/08/18 12:53 Freq: NEEDED Status: Active Protocol: Document 08/10/18 10:37 GGD (Rec: 08/10/18 12:38 GGD [email or web address]) Subjective Physical Therapy Visit Type Type Patient Refusal Notes PT refused states that she having increase in pain and just took pain meds. Will see in PM. Frequency of Treatment Frequency Of Treatment Once a Day Treatment Plan Other Recommendations and Next Treatment ambulation Focus Recommendations To Nursing Amount of Assist Needed 1 Person Assist Discharge Recommendations PT Discharge Recommendations Home with Assistance SNF Rehab
[2018-08-10] MEDS: HYDRALAZINE 20 MG/ML VIAL 10 MG IV (12:29)
--- NOTE | 2018-08-10 15:51 | CM.DPC ---
DCP Cont: Met briefly with patient and , who was at bedside. Pleasant couple. Patient had an ostomy, and was getting home health nursing through [facility], which is now, [place]. Patient stated, they were very helpful, and would use them again if needed. Patient will be working with physical therapy as well. Patient is from [place], and discussed her travels in [place]. She is anxious to go home soon. P: DCP to continue to follow. Will note how she does with physical therapy, and bowel function, before returning home. Will assess any needs that patient may need at discharge, but should be able to return home when she is medically stable. Mary Bhatia, SADIA/[employer]
--- NOTE | 2018-08-10 16:20 | PT.IPTN ---
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) Surgery Performed Operation Date: 08/07/18 07:45 Actual Procedures p laparotomy with reversal of end colostomy, colocolonic anastimosis, incidental appendectomy, and mobilization of splenic flexure - Rohtih Terrell MD Physical Therapy Treatment Note M2 PT-IP Current Condition Start: 08/08/18 12:53 Freq: NEEDED Status: Active Protocol: Document 08/08/18 09:58 AB (Rec: 08/08/18 13:07 AB [email or web address]) Physical Therapy Current Condition Current Condition Evaluation Date 08/08/18 Treatment Diagnosis s/p colostomy reversal; difficulties in walking Onset Date 08/07/18 Precautions Abdominal Surgery Precautions Log Roll Lifting Restrictions Gait Belt above Incisional Area M3 PT-IP Subjective Start: 08/08/18 12:53 Freq: NEEDED Status: Active Protocol: Document 08/10/18 15:53 LJ (Rec: 08/10/18 16:20 LJ [id number]) Subjective Physical Therapy Visit Type Type Treatment Note Visit Start Time 15:53 Visit Stop Time 16:11 Total Visit Minutes 18 Notes Pt willing to get out of bed to ambulate in room Therapy Pain Assessment Pain When Pain Assessed During Mobility Pain Present Pain Present Denied Pain M4 PT-IP Mobility and Gait Start: 08/08/18 12:53 Freq: NEEDED Status: Active Protocol: Document 08/10/18 15:53 LJ (Rec: 08/10/18 16:20 LJ [id number]) PT-Bed Mobility Assessment Supine to Sit Supine to Sit Contact Guard Assistance Head of Bed Elevated Bedrails Sit to Supine Sit to Supine Contact Guard Assistance Head of Bed Elevated Bedrails Scooting Scooting to Edge of Bed Standby Assistance PT-Transfer Assessment Sit to and From Stand Sit to and from Stand Standby Assistance Use of Upper Extremities Equipment Transfer Assistive Device Gait Belt Front Wheeled Walker Orthotic/Prosthetic Devices or Brace: No Transfers Transfer Destination Bed Bedside Commode Transfer Technique Stand Step Pivot Transfer Ability Level of Assist Standby Assistance Use of Upper Extremities Comments Mobility Comments Pt performing bed mobility with SBA head of bed raised using rails for supine<>sit Gait Assessment Gait Gait Assistance Required: Standby Assistance Distance (Feet) 30 Assistive Devices Assistive Device Gait Belt Front Wheeled Walker Gait Deviations General Gait Pattern Decreased Stride Length Decreased Feet Clearance Factors Limiting Gait Function Factors Limiting Gait Function Decreased Activity Tolerance Decreased Strength Limited Range of Motion Pain Poor Balance Poor Safety Awareness M5 PT-IP Objective Assessments Start: 08/08/18 12:53 Freq: NEEDED Status: Active Protocol: Document 08/08/18 09:58 AB (Rec: 08/08/18 13:07 AB [email or web address]) Orientation Orientation/Cognition Level of Alertness Alert Orientation Name Age Birthday Place Situation Safety Awareness Decreased Safety Awareness Gross Range of Motion Lower Extremity ROM Assessment Within Functional Limits Strength Lower Extremity Strength Assessment Bilaterally Impaired Comments Strength Comments LLE : 3+/5 RLE 4-/5 Sensation Assessment Sensation Gross Sensation WNL Muscle Tone Muscle Tone WNL Yes M6 PT-IP Treatment Start: 08/08/18 12:53 Freq: NEEDED Status: Active Protocol: Document 08/10/18 15:53 LJ (Rec: 08/10/18 16:20 LJ [id number]) Physical Therapy Treatment Education Education Provided Safety Other Treatments Other Treatment Performed abdominal bracing prior to and during movement M7 PT-IP Assessment and Plan Start: 08/08/18 12:53 Freq: NEEDED Status: Active Protocol: Document 08/10/18 15:53 LJ (Rec: 08/10/18 16:20 [id number]) PT Summary Assessment and Plan Summary Assessment Summary Pt requiring less assist with bed mobility and transfers. Ambulated around bed to BSC then back into bed with SBA- CGA for all activity. Pt in room to assist if needed Goals Bed Mobility Goal Standby Assistance Transfer Goal Standby Assistance Front Wheeled Walker Gait Goal Standby Assistance Front Wheel Walker Gait Distance 100 Days to Meet Goals 10 Frequency of Treatment Frequency Of Treatment Once a Day Treatment Plan Other Recommendations and Next Treatment ambulation Focus Recommendations To Nursing Amount of Assist Needed 1 Person Assist Discharge Recommendations PT Discharge Recommendations Home with Assistance SNF Rehab
--- NOTE | 2018-08-10 20:07 | PM.PNPO.1 ---
Subjective Date Patient Seen: 08/10/18 Time Patient Seen: 19:07 Interval history: Patient is postop day colostomy closure. She is feeling all right. Actually she says she is feeling better than she expected. Exam Vital Signs (past 8 hours): - 08/10/18 12:26 08/10/18 15:20 08/10/18 18:06 Temperature 97.6 F Pulse Rate 88 108 H 106 H Respiratory Rate 15 16 18 Blood Pressure 118/65 Pulse Oximetry 94 93 96 08/10/18 19:25 Temperature 98.1 F Pulse Rate 107 H Respiratory Rate 18 Blood Pressure 142/79 H Pulse Oximetry 94 Fraction of Inspired Oxygen 24 Oxygen Delivery Method Nasal Cannula Oxygen Flow Rate 1 Narrative Exam Narrative: Lungs are clear to auscultation good effort. Heart regular rate and rhythm without murmur gallop. Abdomen is soft nontender. She has little bit of drainage on the dressing where the ostomy was. I can't tell if this is Betadine or something in the wound like necrotic fat. No cellulitis. NG tube has been clamped all day. Objective Labs Result Diagrams: 08/10/18 05:54 08/10/18 05:54 Labs: Laboratory Results - last 24 hr 08/10/18 08/10/18 05:54 05:54 WBC 11.3 H RBC 4.25 Hgb 12.6 Hct 37.3 MCV 87.7 MCH 29.7 MCHC 33.9 RDW 12.7 Plt Count 197 Neut % (Auto) 85.6 H Lymph % (Auto) 9.8 L Stevens % (Auto) 4.2 Eos % (Auto) 0.0 L Baso % (Auto) 0.4 Neut # (Auto) 9700 H Lymph # (Auto) 1100 Stevens # (Auto) 500 Eos # (Auto) 0 Baso # (Auto) 0 Sodium 137 Potassium 3.5 Chloride 104 Carbon Dioxide 26 BUN 8 Creatinine 0.60 Estimated GFR > 60.0 BUN/Creatinine Ratio 13.3 Glucose 131 H Calcium 8.7 Magnesium 1.6 Assessment & Plan Post-op Postoperative Procedures Operation Date: 08/07/18 07:45 Actual Procedures Side Surgeon p laparotomy with reversal of end colostomy, colocolonic anastimosis, incidental appendectomy, and mobilization of splenic flexure Rohith Terrell MD Postoperative day: 3 Postoperative status: doing well Postoperative status narrative: I Holter NG tube to suction and really obtain next nothing even though I aspirated and flushed it. Therefore I removed her NG tube. Will not advance her diet at this time. Quality VTE Deep Vein Thrombosis/Pulmonary Embolism Present on Admission: No
--- NOTE | 2018-08-10 23:11 | PC.NURSE ---
1930: Pt reporting pain tolerable at 1-2/10. Abd soft, bt hypoactive, denies nausea. Incisions covered with gauze, yellow drainage present on left side. MD Dias in to see pt, removed NGT, and looked at pt incisions/drainage that was present. New dressing applied. Pt up with one assist/walker to BR. Tolerated well
[2018-08-11] VITALS (7 sets, daily range): BP systolic 125–162; BP diastolic 86–96; PULSE 91–99; RESP 16–18; TEMP 36.5–36.8; O2SAT 93–96
[2018-08-11] MEDS: ALBUTEROL/IPRATROPIUM 3 ML AMPUL INH ×2 (06:22→19:13)
[2018-08-11] MEDS: MORPHINE 2 MG/ML INJ IV ×3 (08:39→21:27)
[2018-08-11] MEDS: ENOXAPARIN 30 MG/0.3 ML SYRINGE SUBCUT (08:48)
[2018-08-11] MEDS: PANTOPRAZOLE 40 MG VIAL IV (08:48)
--- NOTE | 2018-08-11 11:17 | PC.NURSE ---
Addendum entered by Brandon Maurice R.N. 08/11/18 14:10: Morphine given this morning has made my day. Pt restful, attentive at bedside. Original Note: alert and oriented offers no overt issue other than discomfort that is increasing in her belly, possibly cramps post-op. Pain med per orders. with pain med nausea subsiding as is pain. surgical site intact. Pt restful
[2018-08-11] MEDS: DEXTROSE 5%-0.45NS W/KCL 20MEQ 1,000 ML 85 MEQ IV ×2 (11:56→23:51)
--- NOTE | 2018-08-11 12:10 | PT.IPTN ---
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) Surgery Performed Operation Date: 08/07/18 07:45 Actual Procedures p laparotomy with reversal of end colostomy, colocolonic anastimosis, incidental appendectomy, and mobilization of splenic flexure - Rohith Terrell MD Physical Therapy Treatment Note M2 PT-IP Current Condition Start: 08/08/18 12:53 Freq: NEEDED Status: Active Protocol: Document 08/08/18 09:58 AB (Rec: 08/08/18 13:07 AB [email or web address]) Physical Therapy Current Condition Current Condition Evaluation Date 08/08/18 Treatment Diagnosis s/p colostomy reversal; difficulties in walking Onset Date 08/07/18 Precautions Abdominal Surgery Precautions Log Roll Lifting Restrictions Gait Belt above Incisional Area M3 PT-IP Subjective Start: 08/08/18 12:53 Freq: NEEDED Status: Active Protocol: Document 08/11/18 12:10 GGD (Rec: 08/11/18 12:45 GGD [email or web address]) Subjective Physical Therapy Visit Type Type Treatment Note Visit Start Time 11:45 Visit Stop Time 12:10 Total Visit Minutes 25 Number of DESK MAKER Visits 3 Physical Therapy Visit Comments Patient Comments Pt states she needs to use the bathroom. Therapy Pain Assessment Pain When Pain Assessed During Mobility Pain Present Pain Present Denied Pain M4 PT-IP Mobility and Gait Start: 08/08/18 12:53 Freq: NEEDED Status: Active Protocol: Document 08/11/18 12:10 GGD (Rec: 08/11/18 12:45 GGD [email or web address]) PT-Transfer Assessment Sit to and From Stand Sit to and from Stand Standby Assistance Use of Upper Extremities Equipment Transfer Assistive Device Gait Belt Front Wheeled Walker Orthotic/Prosthetic Devices or Brace: No Transfers Transfer Destination Chair Toilet Transfer Technique Stand Step Pivot Transfer Ability Level of Assist Standby Assistance Use of Upper Extremities Gait Assessment Gait Gait Assistance Required: Standby Assistance Distance (Feet) 80 Assistive Devices Assistive Device Gait Belt Front Wheeled Walker Gait Deviations General Gait Pattern Decreased Stride Length Decreased Feet Clearance Factors Limiting Gait Function Factors Limiting Gait Function Decreased Activity Tolerance Decreased Strength Limited Range of Motion Pain Poor Balance Poor Safety Awareness M5 PT-IP Objective Assessments Start: 08/08/18 12:53 Freq: NEEDED Status: Active Protocol: Document 08/08/18 09:58 AB (Rec: 08/08/18 13:07 AB [email or web address]) Orientation Orientation/Cognition Level of Alertness Alert Orientation Name Age Birthday Place Situation Safety Awareness Decreased Safety Awareness Gross Range of Motion Lower Extremity ROM Assessment Within Functional Limits Strength Lower Extremity Strength Assessment Bilaterally Impaired Comments Strength Comments LLE : 3+/5 RLE 4-/5 Sensation Assessment Sensation Gross Sensation WNL Muscle Tone Muscle Tone WNL Yes M6 PT-IP Treatment Start: 08/08/18 12:53 Freq: NEEDED Status: Active Protocol: Document 08/10/18 15:53 LJ (Rec: 08/10/18 16:20 LJ [id number]) Physical Therapy Treatment Education Education Provided Safety Other Treatments Other Treatment Performed abdominal bracing prior to and during movement M7 PT-IP Assessment and Plan Start: 08/08/18 12:53 Freq: NEEDED Status: Active Protocol: Document 08/11/18 12:10 GGD (Rec: 08/11/18 12:45 GGD [email or web address]) PT Summary Assessment and Plan Summary Assessment Summary Pt improving with balance and gait tolerance. She had improved stability and balance with gait. Pt improving towards home D/C when medically stable. Frequency of Treatment Frequency Of Treatment Once a Day Treatment Plan Other Recommendations and Next Treatment ambulation without assistive Focus device as alba. Recommendations To Nursing Amount of Assist Needed 1 Person Assist Discharge Recommendations PT Discharge Recommendations Home with Assistance
--- NOTE | 2018-08-11 16:33 | PM.PNPO.1 ---
Subjective Date Patient Seen: 08/11/18 Time Patient Seen: 11:33 Interval history: Patient feels pretty well. She is sitting up in a chair. Passing a lot of flatus she said. Had a small bowel movement. Exam Vital Signs (past 8 hours): - 08/11/18 11:25 Temperature 98.3 F Pulse Rate 94 H Respiratory Rate 18 Blood Pressure 150/86 H Pulse Oximetry 96 Fraction of Inspired Oxygen 24 Oxygen Delivery Method Room Air Oxygen Flow Rate 1 Narrative Exam Narrative: Operative pleasant woman in no apparent distress. Her lungs are clear to auscultation. Abdomen is soft less distended. Wounds are intact. Little bit red near the edge of the wound at the ostomy closure which is not atypical. Some dark serous drainage on the gauze. (One small spot) Objective Labs Result Diagrams: 08/10/18 05:54 08/10/18 05:54 Assessment & Plan Post-op Postoperative Procedures Operation Date: 08/07/18 07:45 Actual Procedures Side Surgeon p laparotomy with reversal of end colostomy, colocolonic anastimosis, incidental appendectomy, and mobilization of splenic flexure Rohith Terrell MD Postoperative status: doing well Postoperative plan narrative: Started her on liquids. Asked her not to drink the whole tray that comes. Continue being up in out of bed. Keep working on deep breathing. Quality VTE Deep Vein Thrombosis/Pulmonary Embolism Present on Admission: No
[2018-08-12 01:28] VITALS: BP 150/94; PULSE 90; RESP 18; TEMP 36.3; O2SAT 93
[2018-08-12] MEDS: MORPHINE 2 MG/ML INJ IV ×3 (02:28→17:57)
[2018-08-12 05:07] VITALS: BP 141/84; PULSE 88; RESP 16; TEMP 36.7; O2SAT 94
--- NOTE | 2018-08-12 05:17 | PC.NURSE ---
NOC shift Pt reporting an increase in ABD pain, ABD is distended and firm, BT are present, pt is passing flatus. Pt reported tenderness near the old ostomy site, the edges of the wound are not approximated and pink, some yellow drainage noted on drsg, Drsg changed this shift. Midline ABD wound with jayne intact, no erythema noted. Pt denies N/V, has poor appetite, offered clear fluids during the night. Up to the BSC 4 times so far this shift. Pt O2 sats remain in the mid 90's on RA.
[2018-08-12 06:01] LABS: Add Manual Diff / Slide Review NO; Basophils Absolute Auto 0 /uL (0-100); Basophils Percent Auto 0.3 % (0-2); Eosinophils Absolute Auto 200 /uL (0-450); Eosinophils Percent Auto 4.6 % (2-4); Hematocrit 35.8 % (36-46); Hemoglobin 12.2 g/dL (12.0-16.0); Lymphocytes Absolute Auto 1200 /uL (1100-4500); Lymphocytes Percent Auto 24.9 % (25-40); Mean Corpuscular HGB Conc 34.1 % (30-36); Mean Corpuscular Volume 87.9 fL (80-100); Monocytes Absolute Auto 500 /uL (0-900); Monocytes Percent Auto 9.7 % (3-14); Neutrophils Absolute Auto 2900 /uL (1500-7000); Neutrophils Percent Auto 60.5 % (50-75); Platelet Count 197 X10^3/uL (150-400); Red Blood Cell Count 4.07 X10^6/uL (4.0-5.2); Red Cell Distribution Width 12.8 % (11.6-14.8); White Blood Cell Count 4.8 X10^3/uL (4.5-11.0)
[2018-08-12 06:03] LABS: BUN Creatinine Ratio 11.7 (6-22); Blood Urea Nitrogen 7 mg/dL (7-17); Calcium 8.6 mg/dL (8.4-10.2); Carbon Dioxide 26 mmol/L (22-32); Chloride 105 mmol/L (98-107); Estimated Glomerular Filt Rate > 60.0 mL/min (>60); Glucose 114 mg/dL (80-110); HEMOLYSIS < 15 (0-50); Magnesium 1.7 mg/dL (1.6-2.3); Potassium 3.9 mmol/L (3.4-5.1); Sodium 135 mmol/L (137-145)
[2018-08-12 08:00] VITALS: BP 130/81; PULSE 89; RESP 18; TEMP 36.7; O2SAT 94
[2018-08-12] MEDS: ONDANSETRON 4 MG/2 ML INJ IV (09:10)
[2018-08-12] MEDS: SIMETHICONE 80 MG TABLET PO (09:10)
[2018-08-12] MEDS: ENOXAPARIN 30 MG/0.3 ML SYRINGE SUBCUT (09:10)
[2018-08-12] MEDS: PANTOPRAZOLE 40 MG VIAL IV (09:10)
[2018-08-12 12:00] VITALS: BP 140/74; PULSE 80; RESP 18; TEMP 36.6; O2SAT 96
[2018-08-12] MEDS: DEXTROSE 5%-0.45NS W/KCL 20MEQ 1,000 ML 85 MEQ IV (12:00)
--- NOTE | 2018-08-12 14:48 | PT.IPTN ---
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) Surgery Performed Operation Date: 08/07/18 07:45 Actual Procedures p laparotomy with reversal of end colostomy, colocolonic anastimosis, incidental appendectomy, and mobilization of splenic flexure - Rohith Terrell MD Physical Therapy Treatment Note M2 PT-IP Current Condition Start: 08/08/18 12:53 Freq: NEEDED Status: Active Protocol: Document 08/08/18 09:58 AB (Rec: 08/08/18 13:07 AB [email or web address]) Physical Therapy Current Condition Current Condition Evaluation Date 08/08/18 Treatment Diagnosis s/p colostomy reversal; difficulties in walking Onset Date 08/07/18 Precautions Abdominal Surgery Precautions Log Roll Lifting Restrictions Gait Belt above Incisional Area M3 PT-IP Subjective Start: 08/08/18 12:53 Freq: NEEDED Status: Active Protocol: Document 08/12/18 13:50 CLB (Rec: 08/12/18 14:48 CLB [id number]) Subjective Physical Therapy Visit Type Type Treatment Note Visit Start Time 13:50 Visit Stop Time 14:15 Total Visit Minutes 25 Number of DIGITAL FORENSICS INVESTIGATOR Visits 4 Physical Therapy Visit Comments Patient Comments Pt willing to ambulate in the room only. M4 PT-IP Mobility and Gait Start: 08/08/18 12:53 Freq: NEEDED Status: Active Protocol: Document 08/12/18 13:50 CLB (Rec: 08/12/18 14:48 CLB [id number]) PT-Bed Mobility Assessment Sit to Supine Sit to Supine Standby Assistance Head of Bed Elevated Scooting Scooting Up and Down in Bed Standby Assistance PT-Transfer Assessment Sit to and From Stand Sit to and from Stand Standby Assistance Use of Upper Extremities Equipment Transfer Assistive Device None Gait Belt Orthotic/Prosthetic Devices or Brace: No Transfers Transfer Destination Bed Chair Toilet Transfer Technique Stand Step Pivot Transfer Ability Level of Assist Standby Assistance Use of Upper Extremities Comments Mobility Comments Pt able to perform sit<>stand on/off toilet and performing own pericare. Pt requires HOB raised during sit to supine. Gait Assessment Gait Gait Assistance Required: Standby Assistance Distance (Feet) 45 Assistive Devices Assistive Device None Gait Belt Gait Deviations General Gait Pattern Decreased Stride Length Decreased Feet Clearance Flexed Trunk Factors Limiting Gait Function Factors Limiting Gait Function Decreased Activity Tolerance Decreased Strength Limited Range of Motion Pain Poor Balance Poor Safety Awareness Comments Gait Comments Pt ambulated using IV pole but was able to stand at sink w/o AD and wash hands w/o LOB. M5 PT-IP Objective Assessments Start: 08/08/18 12:53 Freq: NEEDED Status: Active Protocol: Document 08/08/18 09:58 AB (Rec: 08/08/18 13:07 AB [email or web address]) Orientation Orientation/Cognition Level of Alertness Alert Orientation Name Age Birthday Place Situation Safety Awareness Decreased Safety Awareness Gross Range of Motion Lower Extremity ROM Assessment Within Functional Limits Strength Lower Extremity Strength Assessment Bilaterally Impaired Comments Strength Comments LLE : 3+/5 RLE 4-/5 Sensation Assessment Sensation Gross Sensation WNL Muscle Tone Muscle Tone WNL Yes M6 PT-IP Treatment Start: 08/08/18 12:53 Freq: NEEDED Status: Active Protocol: Document 08/10/18 15:53 LJ (Rec: 08/10/18 16:20 LJ [id number]) Physical Therapy Treatment Education Education Provided Safety Other Treatments Other Treatment Performed abdominal bracing prior to and during movement M7 PT-IP Assessment and Plan Start: 08/08/18 12:53 Freq: NEEDED Status: Active Protocol: Document 08/12/18 13:50 CLB (Rec: 08/12/18 14:48 CLB [id number]) PT Summary Assessment and Plan Summary Assessment Summary Pt didn't want to ambulate in gomez stating she felt as if she had overdone it yesterday. Pt had good standing balance w/o AD at counter washing hands and used IV pole with ambulation. present during tx. Goals Bed Mobility Goal Standby Assistance Transfer Goal Standby Assistance Front Wheeled Walker Gait Goal Standby Assistance Front Wheel Walker Gait Distance 100 Days to Meet Goals 10 Frequency of Treatment Frequency Of Treatment Once a Day Treatment Plan Other Recommendations and Next Treatment ambulation without assistive Focus device as alba. Recommendations To Nursing Amount of Assist Needed 1 Person Assist Discharge Recommendations PT Discharge Recommendations Home with Assistance
[2018-08-12 15:30] VITALS: BP 151/87; PULSE 94; RESP 14; TEMP 36.7; O2SAT 92
--- NOTE | 2018-08-12 16:35 | P.PN_ITS ---
Subjective Date Patient Seen: 08/12/18 Time Patient Seen: 12:33 Interval history: Patient feels pretty well today. She is taking about 25% of her tray which is what I asked her to do. She is passing lot of gas she says. Still no bowel movement. Exam Vital Signs (past 8 hours): - 08/12/18 12:00 Temperature 98 F Pulse Rate 80 Respiratory Rate 18 Blood Pressure 140/74 Pulse Oximetry 96 Fraction of Inspired Oxygen 24 Oxygen Delivery Method Room Air Oxygen Flow Rate 1 Narrative Exam Narrative: Pleasant very thin lady in no apparent distress. Lungs are clear. Good effort. Heart regular rate rhythm without murmur gallop. Abdomen is a little distended soft. Nontender. Dressings intact. Objective Labs Result Diagrams: 08/12/18 05:26 08/12/18 05:26 Labs: Laboratory Results - last 24 hr 08/12/18 08/12/18 05:26 05:26 WBC 4.8 D RBC 4.07 Hgb 12.2 Hct 35.8 L MCV 87.9 MCH 30.0 MCHC 34.1 RDW 12.8 Plt Count 197 Neut % (Auto) 60.5 D Lymph % (Auto) 24.9 L [place] % (Auto) 9.7 Eos % (Auto) 4.6 H Baso % (Auto) 0.3 Neut # (Auto) 2900 Lymph # (Auto) 1200 [place] # (Auto) 500 Eos # (Auto) 200 Baso # (Auto) 0 Sodium 135 L Potassium 3.9 Chloride 105 Carbon Dioxide 26 BUN 7 Creatinine 0.60 Estimated GFR > 60.0 BUN/Creatinine Ratio 11.7 Glucose 114 H Calcium 8.6 Magnesium 1.7 Assessment & Plan Post-op Postoperative Procedures Operation Date: 08/07/18 07:45 Actual Procedures Side Surgeon p laparotomy with reversal of end colostomy, colocolonic anastimosis, incidental appendectomy, and mobilization of splenic flexure Rohith Terrell MD Postoperative status: doing well Postoperative plan narrative: Rectal suppository to see if we can not stimulate colon function. Keep her on clear liquids with cautious use. She is frequently out of bed when I visited her which is excellent. Keep working on her breathing. Quality VTE Deep Vein Thrombosis/Pulmonary Embolism Present on Admission: No
[2018-08-12] MEDS: BISACODYL 10 MG SUPP PR (18:03)
[2018-08-12] MEDS: MAGNESIUM HYDROXIDE 30 ML UDC PO (18:39)
[2018-08-12 19:05] VITALS: BP 144/89; PULSE 96; RESP 14; TEMP 36.7; O2SAT 91
[2018-08-13] VITALS (7 sets, daily range): BP systolic 118–161; BP diastolic 57–112; PULSE 85–94; RESP 15–20; TEMP 36.4–36.9; O2SAT 93–95
[2018-08-13] MEDS: DEXTROSE 5%-0.45NS W/KCL 20MEQ 1,000 ML 85 MEQ IV (00:41)
[2018-08-13] MEDS: MORPHINE 2 MG/ML INJ IV ×2 (00:54→08:19)
--- NOTE | 2018-08-13 01:28 | PC.NURSE ---
Addendum entered by Yue Rollins R.N. 08/13/18 05:13: States she feels she is having an asthma attack and request neb Rx; given as requested. Original Note: Patient is alert and oriented. Breath sounds diminished in bilateral mid/lower lobes but CTA with RA sat of 94%. HRR. BP elevated at 146/89 but doesn't meet parameters for Apresoline so will monitor. Denies nausea. BT present and had small yellow loose stool while on BSC to void. Dressing to abdomen is CDI. Having 3/10 incisional pain; requested/medicated with Morphine. Independent with bed mobility but due to weakness gets up to BSC with 1 assist. Noted buttocks to be pink but without breakdown. Encouraged to lie more on sides and has waffle cushion under her. Refusing to wear SCD's so reminded to ankle wave. Fall risk score is moderate; bed alarm is activated. Spouse rooming in.
[2018-08-13] MEDS: ALBUTEROL 2.5 MG/3 ML NEB (ADULT) INH ×2 (05:10→20:28)
--- NOTE | 2018-08-13 09:32 | PT.IPTN ---
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) Surgery Performed Operation Date: 08/07/18 07:45 Actual Procedures p laparotomy with reversal of end colostomy, colocolonic anastimosis, incidental appendectomy, and mobilization of splenic flexure - Rohith Terrell MD Physical Therapy Treatment Note M2 PT-IP Current Condition Start: 08/08/18 12:53 Freq: NEEDED Status: Active Protocol: Document 08/08/18 09:58 AB (Rec: 08/08/18 13:07 AB [email or web address]) Physical Therapy Current Condition Current Condition Evaluation Date 08/08/18 Treatment Diagnosis s/p colostomy reversal; difficulties in walking Onset Date 08/07/18 Precautions Abdominal Surgery Precautions Log Roll Lifting Restrictions Gait Belt above Incisional Area M3 PT-IP Subjective Start: 08/08/18 12:53 Freq: NEEDED Status: Active Protocol: Document 08/13/18 09:00 CLB (Rec: 08/13/18 09:32 CLB [id number]) Subjective Physical Therapy Visit Type Type Patient Refusal Notes Pt refused stating she would ambulate later this afternoon with PT.
[2018-08-13] MEDS: PANTOPRAZOLE 40 MG VIAL IV (09:47)
[2018-08-13] MEDS: ENOXAPARIN 30 MG/0.3 ML SYRINGE SUBCUT (09:47)
--- NOTE | 2018-08-13 11:09 | P.PN_ITS ---
Subjective Date Patient Seen: 08/13/18 Time Patient Seen: 11:05 Interval history: Patient denies significant pain although she is experiencing intermittent diffuse crampy pain. She notes some mild nausea when the pain occurs but none between these episodes. She is passing flatus. Small bowel movement yesterday after a rectal suppository but none since. Still feels subjectively mildly distended throughout the abdomen. Had some shortness of breath this morning and requested a breathing treatment which seemed to help. Denies any chest pain or shortness of breath currently. No chest pain at any time as a matter of fact. No subjective fever or chills. Appetite remains somewhat suppressed. No dysuria or hematuria. Exam Vital Signs (past 8 hours): - 08/13/18 04:30 08/13/18 08:31 Temperature 97.8 F 98.1 F Pulse Rate 87 93 H Respiratory Rate 18 18 Blood Pressure 140/57 L 118/78 Pulse Oximetry 95 95 Fraction of Inspired Oxygen 24 Oxygen Delivery Method Room Air Oxygen Flow Rate 0 Narrative Exam Narrative: Thin female in no acute distress. Alert oriented x3. She is in good spirits. is at the bedside throughout my visit. Remains afebrile with no tachycardia and otherwise normal blood pressure. Chest clear to auscultation bilaterally with regular rate and rhythm. No wheezes. Abdomen shows active bowel sounds throughout but she remains mildly distended and tympanitic. Appropriately tender without guarding or rebound. Wound is clean, dry, and intact without erythema or significant drainage. Extremities show no clubbing, cyanosis, or edema Objective Labs Result Diagrams: 08/12/18 05:26 08/12/18 05:26 Assessment & Plan Plan: Assessment/Plan Narrative: 78-year-old female now postoperative day 6 from colostomy reversal with colocolonic anastomosis who continues to have slowly resolving postoperative ileus. Her ileus is not unanticipated given the nature of her disease and required operation. There is no evidence of any infectious complications or other issues. We will slow her IV fluids and ambulate aggressively. Continue respiratory therapy as needed along with incentive spirometry. She is stable on room air with normal saturations. Advanced to a full liquid diet with Ensure supplementation. Add more aggressive bowel regimen with milk of magnesia , Colace, Senokot, and scheduled Reglan. Begin to convert to oral analgesia as this may help with some of the nausea related to morphine. When she has more consistent bowel function and is able to tolerate a regular diet she can be discharged home. Discussed this with her in detail today. All questions were answered to her satisfaction, and she voiced understanding. Orders were written. Quality VTE Deep Vein Thrombosis/Pulmonary Embolism Present on Admission: No
[2018-08-13] MEDS: METOCLOPRAMIDE 10 MG/2 ML INJ IV ×2 (11:39→17:10)
[2018-08-13] MEDS: MAGNESIUM HYDROXIDE 30 ML UDC PO ×2 (11:39→22:07)
[2018-08-13] MEDS: DEXTROSE 5%-0.45NS W/KCL 20MEQ 1,000 ML 60 MEQ IV (13:28)
--- NOTE | 2018-08-13 13:37 | PT.IPTN ---
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) Surgery Performed Operation Date: 08/07/18 07:45 Actual Procedures p laparotomy with reversal of end colostomy, colocolonic anastimosis, incidental appendectomy, and mobilization of splenic flexure - Rohith Terrell MD Physical Therapy Treatment Note M2 PT-IP Current Condition Start: 08/08/18 12:53 Freq: NEEDED Status: Active Protocol: Document 08/08/18 09:58 AB (Rec: 08/08/18 13:07 AB [email or web address]) Physical Therapy Current Condition Current Condition Evaluation Date 08/08/18 Treatment Diagnosis s/p colostomy reversal; difficulties in walking Onset Date 08/07/18 Precautions Abdominal Surgery Precautions Log Roll Lifting Restrictions Gait Belt above Incisional Area M3 PT-IP Subjective Start: 08/08/18 12:53 Freq: NEEDED Status: Active Protocol: Document 08/13/18 13:36 CLB (Rec: 08/13/18 13:37 CLB [id number]) Subjective Physical Therapy Visit Type Type Patient Refusal Notes Pt stated she just isn't feeling well today and asked we check back with her tomorrow. RN informed.
[2018-08-13] MEDS: SENNOSIDES 8.6 MG TABLET PO (20:28)
[2018-08-13] MEDS: HYDROCODONE/ACET EXLIXIR 7.5-325/15 ML PO (20:45)
[2018-08-14] VITALS (11 sets, daily range): BP systolic 142–177; BP diastolic 80–99; PULSE 89–103; RESP 14–24; TEMP 36.4–37.1; O2SAT 92–97
[2018-08-14] MEDS: METOCLOPRAMIDE HCL 10 MG TABLET PO ×5 (00:12→23:54)
--- NOTE | 2018-08-14 00:23 | PC.NURSE ---
Addendum entered by Yue Rollins R.N. 08/14/18 04:19: Once again, noted earlier BP of 151/99 so recheck now and is 155/87 so no Hydralazine given at this time. Denies pain. Original Note: Addendum entered by Yue Rollins R.N. 08/14/18 01:34: Just noted now that 0000 BP was 155/92 for which Hydralazine would have been indicated. Upon recheck now, BP is 142/80 so not medicated. Original Note: Patient is alert and oriented. Breath sounds diminished but CTA with RA sat of 96%. HRR. Denies nausea. BT present and abdomen is soft. Dressing to abdomen is CDI. States pain is currently only 1/10; warm blanket applied for comfort. Reports she has been having loose stools during resolution of ileus. Denies dysuria, frequency, urgency. Reports no urinary incontinence but sometimes not making it in time for BM so is wearing a pull up. Independent with bed mobility. Assisted to BSC/bathroom with 1 assist; is still feeling weak when up. Uses walker with assist for longer distances. Refuses to wear SCD's. Spouse rooming in.
[2018-08-14] MEDS: ALBUTEROL 2.5 MG/3 ML NEB (ADULT) INH ×2 (06:05→15:57)
--- NOTE | 2018-08-14 09:05 | PM.PN.1 ---
Subjective Date Patient Seen: 08/14/18 Time Patient Seen: 09:06 Interval history: Denies significant pain. No nausea or vomiting today. Tolerated full liquid diet yesterday with Ensure supplementation. Continues to pass flatus and multiple liquid bowel movements. No dysuria or hematuria. Ambulating without significant difficulty. Overall states she is feeling much better today. Exam Vital Signs (past 8 hours): - 08/14/18 01:33 08/14/18 03:33 08/14/18 04:18 Temperature 97.5 F L Pulse Rate 97 H 101 H 91 H Respiratory Rate 17 Blood Pressure 142/80 H 151/99 H 155/87 H Pulse Oximetry 92 08/14/18 06:08 Temperature Pulse Rate Respiratory Rate Blood Pressure Pulse Oximetry 97 Fraction of Inspired Oxygen 24 Oxygen Delivery Method Room Air Oxygen Flow Rate 0 Narrative Exam Narrative: Thin female in no acute distress. Alert oriented x3. She is in good spirits today. Her is at the bedside for my entire visit. Afebrile and otherwise hemodynamically stable with no significant tachycardia or blood pressure issues Adequate urine output Chest clear to auscultation bilaterally without crackles or wheezes. Abdomen shows bowel sounds throughout. She remains mildly distended and tympanitic however. Abdomen is soft nonetheless and appropriately tender without guarding or rebound. Her incisions are healing nicely without erythema or ecchymosis. No wound drainage. Extremities show no clubbing or cyanosis Objective Labs Result Diagrams: 08/12/18 05:26 08/12/18 05:26 Labs: No new laboratory or radiographic studies for review today Assessment & Plan Plan: Assessment/Plan Narrative: 78-year-old female now 7 days status post laparotomy with colocolonic anastomosis for colostomy reversal who continues to slowly resolve her anticipated postoperative ileus. We will advance her to a regular diet today. Continue Ensure supplementation with each meal. She may shower and ambulate aggressively. Saline lock the IV. Continue current oral regimen with stool softeners and laxatives. Once she has more consistent bowel function and is able to tolerate adequate caloric oral intake then she would be stable for discharge to home. I anticipate this to occur in the next 1-2 days. I discussed this with her. All questions were otherwise answered to her satisfaction, and she voiced understanding. Orders were written. Quality VTE Deep Vein Thrombosis/Pulmonary Embolism Present on Admission: No
[2018-08-14] MEDS: PANTOPRAZOLE 40 MG VIAL IV (09:20)
[2018-08-14] MEDS: ENOXAPARIN 30 MG/0.3 ML SYRINGE SUBCUT (09:20)
[2018-08-14] MEDS: SODIUM CHLORIDE 0.9% FLUSH 10 ML IV ×2 (09:21→20:47)
--- NOTE | 2018-08-14 11:08 | PT.IPTN ---
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) Surgery Performed Operation Date: 08/07/18 07:45 Actual Procedures p laparotomy with reversal of end colostomy, colocolonic anastimosis, incidental appendectomy, and mobilization of splenic flexure - Rohith Terrell MD Physical Therapy Treatment Note M2 PT-IP Current Condition Start: 08/08/18 12:53 Freq: NEEDED Status: Active Protocol: Document 08/08/18 09:58 AB (Rec: 08/08/18 13:07 AB [email or web address]) Physical Therapy Current Condition Current Condition Evaluation Date 08/08/18 Treatment Diagnosis s/p colostomy reversal; difficulties in walking Onset Date 08/07/18 Precautions Abdominal Surgery Precautions Log Roll Lifting Restrictions Gait Belt above Incisional Area M3 PT-IP Subjective Start: 08/08/18 12:53 Freq: NEEDED Status: Active Protocol: Document 08/14/18 09:55 CLB (Rec: 08/14/18 11:07 CLB [id number]) Subjective Physical Therapy Visit Type Type Treatment Note Visit Start Time 09:55 Visit Stop Time 10:10 Total Visit Minutes 15 Number of ENVIRONMENTAL TECHNICAL OFFICER Visits 5 Physical Therapy Visit Comments Patient Comments Pt needing to use BR and agreeable to ambulate in gomez. Therapy Pain Assessment Pain When Pain Assessed During Mobility Pain Present Pain Present Pain Reported Location Abdomen Intensity 1 Scale Used Numeric (1 - 10) M4 PT-IP Mobility and Gait Start: 08/08/18 12:53 Freq: NEEDED Status: Active Protocol: Document 08/14/18 09:55 CLB (Rec: 08/14/18 11:07 CLB [id number]) PT-Bed Mobility Assessment Supine to Sit Supine to Sit Independent Sit to Supine Sit to Supine Independent Scooting Scooting to Edge of Bed Standby Assistance PT-Transfer Assessment Sit to and From Stand Sit to and from Stand Standby Assistance Equipment Transfer Assistive Device Gait Belt Front Wheeled Walker Orthotic/Prosthetic Devices or Brace: No Transfers Transfer Destination Bed Chair Toilet Transfer Ability Level of Assist Standby Assistance Gait Assessment Gait Gait Assistance Required: Standby Assistance Distance (Feet) 125 Assistive Devices Assistive Device Gait Belt Front Wheeled Walker Gait Deviations General Gait Pattern Decreased Stride Length Decreased Feet Clearance Flexed Trunk Factors Limiting Gait Function Factors Limiting Gait Function Decreased Activity Tolerance Decreased Strength Limited Range of Motion Pain Comments Gait Comments Pt increased ambulation to ~ 125ft in gomez with FWW/SBA M5 PT-IP Objective Assessments Start: 08/08/18 12:53 Freq: NEEDED Status: Active Protocol: Document 08/08/18 09:58 AB (Rec: 08/08/18 13:07 AB [email or web address]) Orientation Orientation/Cognition Level of Alertness Alert Orientation Name Age Birthday Place Situation Safety Awareness Decreased Safety Awareness Gross Range of Motion Lower Extremity ROM Assessment Within Functional Limits Strength Lower Extremity Strength Assessment Bilaterally Impaired Comments Strength Comments LLE : 3+/5 RLE 4-/5 Sensation Assessment Sensation Gross Sensation WNL Muscle Tone Muscle Tone WNL Yes M6 PT-IP Treatment Start: 08/08/18 12:53 Freq: NEEDED Status: Active Protocol: Document 08/10/18 15:53 LJ (Rec: 08/10/18 16:20 LJ [id number]) Physical Therapy Treatment Education Education Provided Safety Other Treatments Other Treatment Performed abdominal bracing prior to and during movement M7 PT-IP Assessment and Plan Start: 08/08/18 12:53 Freq: NEEDED Status: Active Protocol: Document 08/14/18 09:55 CLB (Rec: 08/14/18 11:07 CLB [id number]) PT Summary Assessment and Plan Summary Assessment Summary Pt is Independent to EOB then requiring SBA for sit<>stand and gait. Pt is able to victor m/ doff brief and perform pericare. Pt has good balance during hand washing while reaching at sink for soap and paper towel. Pt increased ambulation to ~125ft SBA/FWW. Pt was encouraged to ambulate with nursing again today. Goals Bed Mobility Goal Standby Assistance Transfer Goal Standby Assistance Front Wheeled Walker Gait Goal Standby Assistance Front Wheel Walker Gait Distance 100 Days to Meet Goals 10 Frequency of Treatment Frequency Of Treatment Once a Day Treatment Plan Other Recommendations and Next Treatment ambulate Focus Recommendations To Nursing Amount of Assist Needed 1 Person Assist Discharge Recommendations PT Discharge Recommendations Home with Assistance
--- NOTE | 2018-08-14 11:28 | CM.DPC ---
DCP/cont Per Dr. Terrell patient tolerated full liquid diet and will advance her to regular diet w/ ensure supplements today. Once patient has consistent bowel function and can tolerate diet could discharge in next 1-2 days. Patient has been working with PT and ambulating well. Plan: Home when stable. CM team to follow as needed.
[2018-08-14] MEDS: DOCUSATE ORAL LIQUID 100 MG/10 ML UDC PO (20:47)
[2018-08-14] MEDS: SENNOSIDES 8.6 MG TABLET PO (20:47)
[2018-08-15 04:00] VITALS: BP 182/88; PULSE 88; RESP 18; TEMP 36.7; O2SAT 95
[2018-08-15] MEDS: METOCLOPRAMIDE HCL 10 MG TABLET PO (06:28)
[2018-08-15 07:45] VITALS: BP 196/102; PULSE 100; RESP 18; TEMP 36.9; O2SAT 93
--- NOTE | 2018-08-15 08:49 | P.DS_ITS ---
History of Present Illness Date Patient Seen: 08/15/18 Time Patient Seen: 08:44 Chief complaint: colostomy reversal [id number] Narrative: 78-year-old female status post Lea procedure for perforated diverticulitis several months ago who presents now for elective protestant of bowel continuity. She was admitted for colostomy reversal. Discharge Providers Date of admission: 08/07/18 06:20 Primary care physician: Steve Pagan MD Consults: 08/07/18 06:00 Consult to Discharge Planning Routine Comment: 08/07/18 13:53 Consult to Physical Therapy Evaluate & Treat Comment: Physician Instructions: Evaluate and Treat Consult to Respiratory Therapy Evaluate & Treat Comment: Physician Instructions: Evaluate and treat Discharge provider: Rohith Terrell MD Discharge Date: 08/15/18 Summary Discharge Diagnosis: Exploratory laparotomy with lysis of adhesions, mobilization of splenic flexure, colostomy reversal, incidental appendectomy, and colocolonic anastomosis this admission History of Perforated sigmoid diverticulitis 2017 Pelvic abscess 2017 Acute hypertension, resolved Moderate protein calorie malnutrition, chronic History of Exploratory laparotomy with partial sigmoid colectomy, descending and colostomy, and drainage of pelvic abscess April 09, 2018 History of PICC line insertion COPD, chronic, stable Postoperative ileus, subsequently resolved History of Atrial fibrillation, single episode, resolved 2017 Hospital Course: Patient was admitted for the above indications and underwent surgery without any issues. Postoperatively she was admitted to the regular surgical floor where she remained afebrile and hemodynamically stable. She had intermittent episodes of hypertension which subsequently resolved. Pain was well controlled. She had a mild postoperative ileus which was not anticipated and subsequently resolved by postoperative day 6 or 7. At the time of discharge she is tolerating a regular diet with Ensure supplementation. She has had return of spontaneous bowel and bladder function. She is ambulating without difficulty. Pain is well controlled on oral agents. She has no evidence of infection or other complications. Because of her overall good condition she is discharged home today. She will follow up next week for staple and suture removal. She understands to call or return sooner, however, for fever or chills, progressive abdominal pain, nausea, vomiting, inability to tolerate a diet, wound drainage, or lack of bowel function. Status at Discharge Cognitive/behavioral status at discharge: Alert, oriented x3 Functional status at discharge: independent ambulation Overall status at discharge: patient is progressing back to baseline Time Spent with Patient Less than 30 minutes Exam Vital Signs (past 8 hours): - 08/15/18 04:00 08/15/18 07:45 Temperature 98.0 F 98.4 F Pulse Rate 88 100 H Respiratory Rate 18 18 Blood Pressure 182/88 H 196/102 H Pulse Oximetry 95 93 Fraction of Inspired Oxygen 24 Oxygen Delivery Method Room Air Oxygen Flow Rate 0 Narrative Exam Narrative: Thin elderly female in no acute distress. Alert oriented x3. is at the bedside for my visit. Sclera nonicteric Chest clear to auscultation bilaterally with regular rate and rhythm. No crackles or wheezes although she does have some diminished breath sounds consistent with her history of COPD Abdomen is soft and nondistended. She is appropriately but minimally tender. No guarding or rebound. Incisions are clean, dry, and intact without erythema or drainage. Extremities show no clubbing or cyanosis Objective Labs Result Diagrams: 08/12/18 05:26 08/12/18 05:26 Labs: Final pathology of the resected sigmoid segment showed diverticulosis only. Appendix was normal. Discharge Plan Discharge Plan Patient Disposition: Home Discharge Med Rec/Prescriptions Prescriptions: New docusate sodium 50 mg/5 mL Liquid 100 mg PO BID Qty: 30 RF: 0 sennosides [senna] 8.6 mg Tablet 8.6 mg PO BEDTIME Qty: 10 RF: 1 acetaminophen 325 mg Tablet 650 mg PO Q6HR PRN (Reason: As Needed For Fever/Mild Pain) Qty: 60 RF: 1 ondansetron 4 mg Tablet,Disintegrating 4 mg Sublingual Q4HR PRN (Reason: Nausea) Qty: 10 RF: 0 hydrocodone-acetaminophen 7.5-325 mg/15 mL Solution 15 ml PO Q6HR PRN (Reason: Pain, Moderate (4-6)) Qty: 14 RF: 0 Discontinued metronidazole [Flagyl] 500 mg tablet 1,000 mg PO TID Qty: 6 RF: 0 docusate sodium 100 mg Capsule 100 mg PO BID Qty: 20 RF: 1 Follow up/Referrals: Rohith Terrell MD [Physician] - 08/20/18 12:00 am (Please call office for exact appointment time) Provider Discharge Instructions Diet: Diet as Tolerated Diet comment: Continue to drink 1 can of Ensure 2-3 times per day Activity: No lifting more than 20 lb for 3 more weeks May shower May walk as much as desired May climb stairs May ride in vehicle No driving while taking opioid pain medication Cold/Heat Therapy: May apply ice pack to incisions as needed for comfort Skin/Wound/Dressing Care Report to your healthcare provider any signs of infection, such as:: chills, fever, night sweats, increased pain, unusual drainage and unusual redness Dressing: No dressing necessary but may cover with dry gauze to prevent irritation on clothing Other wound treatment: Do not soak incision in bathtub or pool until further notice Discharge Data Primary Care Provider: Steve Pagan Attending Provider: Rohith Terrell Admit Date/Time: 08/07/18 06:20 Quality VTE Deep Vein Thrombosis/Pulmonary Embolism Present on Admission: No
[2018-08-15] MEDS: SODIUM CHLORIDE 0.9% FLUSH 10 ML IV (09:21)
[2018-08-15] MEDS: ENOXAPARIN 30 MG/0.3 ML SYRINGE SUBCUT (09:21)
[2018-08-15 09:38] VITALS: BP 132/74
--- NOTE | 2018-08-15 10:00 | PT.IPTN ---
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) Surgery Performed Operation Date: 08/07/18 07:45 Actual Procedures p laparotomy with reversal of end colostomy, colocolonic anastimosis, incidental appendectomy, and mobilization of splenic flexure - Rohith Terrell MD Physical Therapy Treatment Note M2 PT-IP Current Condition Start: 08/08/18 12:53 Freq: NEEDED Status: Discharge Protocol: Document 08/08/18 09:58 AB (Rec: 08/08/18 13:07 AB [id number]) Physical Therapy Current Condition Current Condition Evaluation Date 08/08/18 Treatment Diagnosis s/p colostomy reversal; difficulties in walking Onset Date 08/07/18 Precautions Abdominal Surgery Precautions Log Roll Lifting Restrictions Gait Belt above Incisional Area M3 PT-IP Subjective Start: 08/08/18 12:53 Freq: NEEDED Status: Discharge Protocol: Document 08/15/18 10:00 GGD (Rec: 08/15/18 11:08 GGD [id number]) Subjective Physical Therapy Visit Type Type Patient Refusal Notes Pt refused states she is D/C home and been walking gomez without FWW. Focus Recommendations To Nursing Amount of Assist Needed 1 Person Assist Discharge Recommendations PT Discharge Recommendations Home with Assistance
--- NOTE | 2018-08-15 10:36 | PC.NURSE ---
Day shift Pt is A&O x3 able to make needs known, spouse at bedside. Pt denies any nausea tolerating general diet, + flatus and BT x4, midline incision well approximated with jayne no s/sx of infection, left abd incision approximated with jayne scant amount of drainage no s/sx of infection. pt c/o of feeling SOB this morning ambulated in gomez uses I/S per pt and spouse back at baseline and no further c/o SOB, lung sounds diminished and 93-94% RA. Reviewed d/c instructions with pt and spouse, reviewed all dr melo instructions diet as tolerated, drink 1 can ensure 2-3 times daily, no lifting more then 20lb may shower no soaking in tub or pool, reviewed instructions when to contact md and s/sx of infection. reviewed medications with last dose, answered all questions and concerns. pt left with all personal belongings. scripts sent with pt. pt left via w/c to spouses car with [employer].
== END 2018-08-15 10:45 | disposition home or self-care (01) | DRG 330 ==
LOC: AC 06:29 → ICU 07:04 → AC 12:26
PROVIDERS: Specialist; Admitting Provider Surgery; PCP Internal Medicine; Visit Provider Surgery
PROC: 0DBN0ZZ Excision of Sigmoid Colon, Open Approach (ICD-10-PCS; CPT 44620; principal; 2018-08-07 07:45)
DX: Z43.3 Encounter for attention to colostomy (principal); K56.7 Ileus, unspecified; E44.0 Moderate protein-calorie malnutrition; Z68.1 Body mass index [BMI] 19.9 or less, adult; K66.0 Peritoneal adhesions (postprocedural) (postinfection); F17.210 Nicotine dependence, cigarettes, uncomplicated; Z40.09 Encounter for prophylactic removal of other organ; J44.9 Chronic obstructive pulmonary disease, unspecified; R03.0 Elevated blood-pressure reading, without diagnosis of hypertension
CPT/HCPCS: 36415; 44626; 80048; 80053; 83735; 85025; 86850; 86900; 86901; 93005; 93010; 94640; 94760; 94762; 97116; 97162; 97530; C9113; J0360; J1100; J1170; J1650; J1940; J1956; J2270; J2405; J2704; J2765; J3010; J7613

== ENCOUNTER 2020-11-29 11:04 | Emergency (ER) | payer MEDICARE, SELFPAY ==
[2018-08-20 16:26] VITALS: PULSE 92; RESP 15; O2SAT 97; BMI 16.6
[2020-11-29] VITALS (18 sets, daily range): BP systolic 142–192; BP diastolic 85–99; PULSE 88–108; RESP 16–54; TEMP 36.8; O2SAT 94–99; BMI 14.4
--- NOTE | 2020-11-29 11:43 | DI.RAD.S_ITS ---
PROCEDURE: XR CHEST 1V INDICATIONS: Chest pain TECHNIQUE: One view of the chest was acquired. COMPARISON: [facility], CR, XR CHEST 1V, 04/14/2018, 5:14. FINDINGS: Surgical changes and devices: None. Lungs and pleura: Lungs are clear. No pleural effusions or pneumothorax. Mediastinum: Mediastinal contours appear normal. Heart size is normal. Bones and chest wall: No suspicious bony lesions. Overlying soft tissues appear unremarkable. IMPRESSION: No acute cardiopulmonary process demonstrated radiographically. Dictated by: Trevor Lowe M.D. on 11/29/2020 at 11:53 Approved by: Trevor Lowe M.D. on 11/29/2020 at 11:57
[2020-11-29 12:26] LABS: Add Manual Diff / Slide Review NO; Basophils Absolute Auto 0 /uL (0-100); Basophils Percent Auto 0.5 % (0-2); Eosinophils Absolute Auto 0 /uL (0-450); Eosinophils Percent Auto 0.4 % (2-4); Hematocrit 43.5 % (36-46); Hemoglobin 14.3 g/dL (12.0-16.0); Lymphocytes Absolute Auto 1000 /uL (1100-4500); Lymphocytes Percent Auto 9.6 % (25-40); Mean Corpuscular Hemoglobin 28.3 PG (26-34); Mean Corpuscular Volume 85.7 fL (80-100); Monocytes Absolute Auto 800 /uL (0-900); Monocytes Percent Auto 7.8 % (3-14); Neutrophils Absolute Auto 8300 /uL (1500-7000); Neutrophils Percent Auto 81.7 % (50-75); Platelet Count 419 X10^3/uL (150-400); Red Blood Cell Count 5.07 X10^6/uL (4.0-5.2); Red Cell Distribution Width 14.4 % (11.6-14.8); White Blood Cell Count 10.2 X10^3/uL (4.5-11.0)
--- NOTE | 2020-11-29 13:10 | ED.ARRPALP ---
HPI - Arrhythmia/Palpitations General Chief Complaint: Arrhythmia/Palpitations Stated Complaint: heart beat high / neasua Time Seen by Provider: 11/29/20 13:02 Source: patient Mode of arrival: Family Vehicle Limitations: no limitations History of Present Illness HPI narrative: Patient is a 80-year-old female with no past medical history presenting today with increasing shortness of breath. She states that she got her 2nd maternity shot about 10-14 days ago since then she has had increased fatigue and weakness she has had progressively worsening shortness of breath. It does seem to be worse while going up stairs she has no chest pain or cough. She has had significant decrease in appetite losing about 3-4 lb. She has no abdominal pain nausea or vomiting. She denies any orthopnea she has no lower extremity edema. Today she felt like her heart was pounding she has a pulse oximeter at home she checked her heart rate it is about 113-114 which point she decided to come to the ER for evaluation. MD complaint: palpitations Related Data Previous Rx's Medication Instructions Recorded acetaminophen 650 mg PO Q6HR PRN #60 tab 08/15/18 docusate sodium 100 mg PO BID #30 ml 08/15/18 hydrocodone-acetaminophen 15 ml PO Q6HR PRN #14 ml 08/15/18 ondansetron 4 mg SUBLINGUAL Q4HR PRN #10 tab 08/15/18 sennosides [senna] 8.6 mg PO BEDTIME #10 tab 08/15/18 albuterol sulfate 2 puff INHALATION Q4-6H PRN #8.5 11/29/20 gram doxycycline hyclate 100 mg PO BID #14 cap 11/29/20 prednisone 40 mg PO DAILY #10 tab 11/29/20 Allergies Allergy/AdvReac Type Severity Reaction Status Date / Time Penicillins Allergy Mild Unknown as Verified 08/07/18 07:33 a teen silver Allergy Mild Rash, itchy Verified 08/07/18 07:33 chocolate flavor AdvReac Mild Headache Verified 08/07/18 07:33 orange AdvReac Mild Nausea Verified 08/07/18 07:33 fat AdvReac Mild Nausea Uncoded 08/07/18 07:33 Review of Systems Review of Systems ROS Unobtainable: All systems reviewed & are unremarkable except as noted in HPI and below Constitutional Constitutional: Reports as per HPI, Reports body ache(s), Reports chills, Reports fatigue, Denies fever(s), Denies frequent falls and Denies headache(s) ENT Ears, Nose, Mouth, and Throat: Denies change in voice, Denies headache(s), Denies neck pain and Denies sore throat Cardiovascular Cardiovascular: Denies chest pain, Denies irregular heart rhythm, Denies lightheadedness, Denies palpitations, Denies dyspnea, Denies dyspnea on exertion and Denies orthopnea Respiratory Respiratory: Denies cough, Denies dyspnea, Denies dyspnea on exertion and Denies wheezing Gastrointestinal Gastrointestinal: Denies abdominal pain, Denies change in bowel habits, Denies diarrhea, Denies nausea and Denies vomiting Musculoskeletal Musculoskeletal: Denies back pain, Denies myalgias and Denies neck pain Integumentary/Breasts Skin/Breast: Denies pruritus, Denies erythema, Denies rash and Denies wounds Neurologic Neurologic: Denies abnormal speech, Denies frequent falls and Denies headache(s) Endocrine Endocrine: Reports fatigue and Denies palpitations Allergic/Immunologic Allergic/Immunologic: Denies wheezing Patient History Medical History Bruises easily Constipation Diverticulosis History of migraine Insomnia Moderate protein-calorie malnutrition Pelvic abscess in female Perforated viscus (~03/2018) Perforation of intestine due to diverticulitis of gastrointestinal tract TIA (transient ischemic attack) (~2010) Surgical History History of partial colectomy Status post colostomy Social History household members: spouse Smoking Status: Former smoker alcohol intake: current Smoking Status: Former smoker alcohol intake frequency: a few times a month Substance Use Type: does not use Exam Initial Vital Signs Initial Vital Signs: Vital Signs Temperature 98.2 F 11/29/20 11:23 Pulse Rate 108 H 11/29/20 11:23 Respiratory Rate 20 11/29/20 11:23 Blood Pressure 188/98 H 11/29/20 11:23 Pulse Oximetry 96 11/29/20 11:23 GENERAL: Thin alert 80-year-old female appears slightly tachypneic HEENT: Head atraumatic,EOMI, pupils reactive, face symmetric, moist mucous membranes CARDIOVASCULAR: Regular rate and rhythm without murmurs, rubs or gallops. RESPIRATORY: Breath sounds equal bilaterally, no decreased, speaks with minimal conversational dyspnea although she does seem to get short of breath slightly tachypneic ABDOMEN: Soft, nontender. Normoactive bowel sounds all 4 quadrants. No guarding or rebound. EXTREMITIES: Normal range of motion, no clubbing or edema. Neurovascularly intact NEUROLOGICAL: Alert and oriented x4.Normal gait and speech. Cranial nerves II through XII grossly intact. SKIN: Warm, dry, no laceration, no petechiae, no rashes or lesions. Course Orders Ordered: ED Orders 11/29/20 11:43 XR chest 1V Stat EKG-12 Lead Stat 11/29/20 12:10 Complete Blood Count AUTO DIFF Stat 11/29/20 12:45 Comprehensive Metabolic Panel Stat D Dimer Stat Lipase Stat NT-proBNP (BNP-Adult 18+) Stat Partial Thromboplastin Time Stat Prothrombin Time INR Stat Troponin & CK Cardiac Panel Stat 11/29/20 13:30 COVID19 -Nasal swab/Pre-Proc Stat 11/29/20 14:56 CT angio chest PE protocol Stat Discontinued Medications Albuterol (Albuterol 2.5 Mg/3 Ml Neb (Adult)) 2.5 mg INH NOW ONE Stop: 11/29/20 15:12 Last Admin: 11/29/20 15:18 Dose: Not Given Documented by: [email or web address] Albuterol (Albuterol 2.5 Mg/3 Ml Neb (Adult)) 2.5 mg INH NOW ONE Stop: 11/29/20 16:27 Last Admin: 11/29/20 16:51 Dose: 2.5 mg Documented by: ANA M Albuterol/Ipratropium (Albuterol/Ipratropium 3 Ml Ampul) 3 ml INH NOW ONE Stop: 11/29/20 13:11 Last Admin: 11/29/20 16:16 Dose: Not Given Documented by: [email or web address] Ipratropium [place] (Ipratropium 0.5 Mg/2.5 Ml Neb) 0.5 mg INH NOW ONE Stop: 11/29/20 15:12 Last Admin: 11/29/20 15:15 Dose: 0.5 mg Documented by: [email or web address] Methylprednisolone (Methylprednisolone 125 Mg/2 Ml Vial) 125 mg IV NOW ONE Stop: 11/29/20 16:27 Last Admin: 11/29/20 16:40 Dose: 125 mg Documented by: BANDAR Vital Signs Vital signs: Vital Signs - 8 hr 11/29/20 11:23 11/29/20 11:32 11/29/20 12:00 Temperature 98.2 F Pulse Rate 108 H 103 H 96 H Respiratory Rate 20 32 H 20 Blood Pressure 188/98 H Pulse Oximetry 96 99 96 11/29/20 12:30 11/29/20 13:00 11/29/20 13:30 Temperature Pulse Rate 94 H 91 H 94 H Respiratory Rate 48 H 31 H 54 H Blood Pressure Pulse Oximetry 94 96 11/29/20 13:37 11/29/20 14:00 11/29/20 14:30 Temperature Pulse Rate 93 H 92 H 92 H Respiratory Rate 37 H 49 H 32 H Blood Pressure 169/85 H Pulse Oximetry 97 97 96 11/29/20 15:00 11/29/20 15:06 11/29/20 15:39 Temperature Pulse Rate 93 H 99 H 95 H Respiratory Rate 16 Blood Pressure Pulse Oximetry 96 98 11/29/20 15:41 11/29/20 16:00 11/29/20 16:30 Temperature Pulse Rate 95 H 96 H 94 H Respiratory Rate 32 H 23 Blood Pressure 192/85 H 142/99 H Pulse Oximetry 99 99 11/29/20 16:39 11/29/20 16:51 11/29/20 17:11 Temperature Pulse Rate 88 90 97 H Respiratory Rate 16 16 35 H Blood Pressure 167/90 H Pulse Oximetry 99 99 MDM - Arrhythmia/Palpitations Lab Data Attestation: I reviewed the patient's lab results. Result diagrams: 11/29/20 12:10 11/29/20 12:45 Labs: Lab Results 11/29/20 11/29/20 11/29/20 Range/Units 12:10 12:45 12:45 WBC 10.2 (4.5-11.0) X10^3/uL RBC 5.07 (4.0-5.2) X10^6/uL Hgb 14.3 (12.0-16.0) g/dL Hct 43.5 (36-46) % MCV 85.7 (80-100) fL MCH 28.3 (26-34) PG MCHC 33.0 (30-36) % RDW 14.4 (11.6-14.8) % Plt Count 419 H (150-400) X10^3/uL Neut % (Auto) 81.7 H (50-75) % Lymph % (Auto) 9.6 L (25-40) % Pratt % (Auto) 7.8 (3-14) % Eos % (Auto) 0.4 L (2-4) % Baso % (Auto) 0.5 (0-2) % Neut # (Auto) 8300 H (3723-6178) /uL Lymph # (Auto) 1000 L (5905-7305) /uL Pratt # (Auto) 800 (0-900) /uL Eos # (Auto) 0 (0-450) /uL Baso # (Auto) 0 (0-100) /uL PT 13.0 H (10.1-12.7) SECONDS INR 1.2 (0.9-1.3) APTT 34 (26.4-36.2) SECONDS D-Dimer (<230) ng/mL Sodium 136 L (137-145) mmol/L Potassium 4.5 (3.4-5.1) mmol/L Chloride 99 (98-107) mmol/L Carbon Dioxide 28 (22-32) mmol/L BUN 18 H (7-17) mg/dL Creatinine 0.76 (0.52-1.04) mg/dL Estimated GFR > 60.0 (>60) mL/min BUN/Creatinine Ratio 23.7 H (6-22) Glucose 109 (80-110) mg/dL Calcium 9.5 (8.4-10.2) mg/dL Total Bilirubin 0.5 (0.2-1.3) mg/dL AST 23 (14-36) IU/L ALT 17 (<35) IU/L Alkaline Phosphatase 103 (38-126) U/L Total Creatine Kinase 24 L (30-135) U/L CK-MB (CK-2) TNP CK-MB (CK-2) Rel Index TNP Troponin I < 0.012 (0.01-0.034) ng/mL NT-Pro-B Natriuret Pep (<450) pg/mL Total Protein 6.2 L (6.3-8.2) g/dL Albumin 3.5 (3.5-5.0) g/dL Globulin 2.7 (1.7-4.1) g/dL Albumin/Globulin Ratio 1.3 (1.0-2.8) Lipase 18 L (23-300) U/L SARS-CoV-2 (PCR) (Negative) 11/29/20 11/29/20 11/29/20 Range/Units 12:45 12:45 13:30 WBC (4.5-11.0) X10^3/uL RBC (4.0-5.2) X10^6/uL Hgb (12.0-16.0) g/dL Hct (36-46) % MCV (80-100) fL MCH (26-34) PG MCHC (30-36) % RDW (11.6-14.8) % Plt Count (150-400) X10^3/uL Neut % (Auto) (50-75) % Lymph % (Auto) (25-40) % Pratt % (Auto) (3-14) % Eos % (Auto) (2-4) % Baso % (Auto) (0-2) % Neut # (Auto) (9819-0672) /uL Lymph # (Auto) (8758-4387) /uL Pratt # (Auto) (0-900) /uL Eos # (Auto) (0-450) /uL Baso # (Auto) (0-100) /uL PT (10.1-12.7) SECONDS INR (0.9-1.3) APTT (26.4-36.2) SECONDS D-Dimer 410 H (<230) ng/mL Sodium (137-145) mmol/L Potassium (3.4-5.1) mmol/L Chloride (98-107) mmol/L Carbon Dioxide (22-32) mmol/L BUN (7-17) mg/dL Creatinine (0.52-1.04) mg/dL Estimated GFR (>60) mL/min BUN/Creatinine Ratio (6-22) Glucose (80-110) mg/dL Calcium (8.4-10.2) mg/dL Total Bilirubin (0.2-1.3) mg/dL AST (14-36) IU/L ALT (<35) IU/L Alkaline Phosphatase (38-126) U/L Total Creatine Kinase (30-135) U/L CK-MB (CK-2) CK-MB (CK-2) Rel Index Troponin I (0.01-0.034) ng/mL NT-Pro-B Natriuret Pep 312 (<450) pg/mL Total Protein (6.3-8.2) g/dL Albumin (3.5-5.0) g/dL Globulin (1.7-4.1) g/dL Albumin/Globulin Ratio (1.0-2.8) Lipase (23-300) U/L SARS-CoV-2 (PCR) Negative (Negative) Imaging Data Chest x-ray: Radiologist's Impresson: PROCEDURE: XR CHEST 1V INDICATIONS: Chest pain TECHNIQUE: One view of the chest was acquired. COMPARISON: [facility], CR, XR CHEST 1V, 04/14/2018, 5:14. FINDINGS: Surgical changes and devices: None. Lungs and pleura: Lungs are clear. No pleural effusions or pneumothorax. Mediastinum: Mediastinal contours appear normal. Heart size is normal. Bones and chest wall: No suspicious bony lesions. Overlying soft tissues appear unremarkable. IMPRESSION: No acute cardiopulmonary process demonstrated radiographically. Dictated by: Trevor Lowe M.D. on 11/29/2020 at 11:53 CT scan - chest: Radiologist's Impresson: PROCEDURE: CT ANGIO CHEST PE PROTOCOL INDICATIONS: +dimer and short of breath TECHNIQUE: After the administration of intravenous contrast, 2 mm thick sections acquired from the pulmonary apices to the posterior costophrenic angles. 3-dimensional maximum intensity projection (MIP) coronal and sagittal reformats were then acquired through the thorax. For radiation dose reduction, the following was used: automated exposure control, adjustment of mA and/or kV according to patient size. COMPARISON: [facility], CT, CT ABDOMEN PELVIS W CON, 04/09/2018, 10:21. [facility], CR, XR CHEST 1V, 11/29/2020, 11:45. FINDINGS: Image quality: Excellent. Pulmonary arteries: Pulmonary arteries are normal in size, and demonstrate no intraluminal filling defects to suggest central pulmonary embolism. Lungs and pleura: Prominent centrilobular emphysematous changes are seen, which are worst at the lung apices and at the lung bases. The lungs are hyperexpanded. Subpleural nodules are seen, with the largest seen on series 6, image 231 within the left lower lobe laterally measuring 6 mm. There is also a sessile area of pleural thickening seen within the right lower lobe laterally, as on series 6 image 150 measuring 5 mm. No focal infiltrates are seen. No pneumothorax or pleural effusions are seen. The central airways are patent. Mediastinum: Heart size is normal, without pericardial effusion. No mediastinal or hilar adenopathy. Thoracic aorta is normal in caliber and enhancement. Atherosclerotic calcification is noted. Negative for aortic dissection. Esophagus is normal in caliber, without hiatal hernia. Bones and chest wall: No suspicious bony lesions. Ribs and thoracic spine appear intact throughout. Age-appropriate bony degenerative changes are seen. Thyroid gland demonstrates no significant abnormality. No axillary or supraclavicular adenopathy. Abdomen: A water density cyst is seen on the right matter measuring 3 cm. Smaller simple appearing renal cysts are seen elsewhere. IMPRESSION: Negative for pulmonary embolism. No findings of aortic aneurysm or dissection can be seen. Prominent emphysematous changes are seen. Subpleural pulmonary nodules are seen, which are most likely related to benign subpleural lymph nodes. However, please consider noncontrast chest CT follow-up in 6 months. Dictated by: Trevon Coffey M.D. on 11/29/2020 at 14:55 Approved by: Trevon Coffey M.D. on 11/29/2020 at 14:59 ECG Data Attestation: I personally reviewed and interpreted this ECG as follows: Prior ECG tracings: available for review Interpretation: Sinus rhythm rate 100 p.r. interval 116 QRS [address] changes MDM Narrative Medical decision making narrative: Patient does certainly have an anxiety component but initially does have some tachypnea. Blood work does reveal mild elevation in the D dimer of 415 it does age correct however she still appears quite tachypneic she is no longer tachycardic or hypoxic. Will get CT to be sure. Other blood work is reassuring she had some mild relief with the DuoNeb. CT does show that she has some emphysematous. Patient states that she is a former smoker she quit smoking 2-3 years ago was quite a heavy smoker. She now states that she has some hand cramping in her right hand only and this is been off and on for the last few days. I believe that this is from hyperventilation rather than stroke. Symptoms most consistent with a COPD exacerbation. He is given a 2nd albuterol taught how to use inhaler with spacer. I have discharged her home with steroids antibiotics and bronchodilator. Discharge Plan Departure Patient Disposition: Home Clinical Impression: Chronic obstructive pulmonary disease with (acute) exacerbation Instructions: Chronic Obstructive Pulmonary Disease Activity Restrictions/Additional Instructions: *You have been diagnosed with COPD exacerbation *What to do: At this time I believe your breathing is due to COPD this is caused from smoking. You may require daily inhalers to help your breathing. For now we will put you on medications to help you during this time. *Continue to take medications as directed Albuterol 1-2 puffs with spacer every 4 hours only if needed for shortness of breath Prednisone 40 mg once a day for 5 days start tomorrow Doxycycline 100 mg twice a day for 7 days *Follow up with your primary care provider in 2-3 days *Return to ER if you should have fever, increasing shortness of breath, chest pain or any new, worsening or concerning symptoms Prescriptions: New albuterol sulfate 90 mcg/actuation HFA aerosol inhaler 2 puff INHALATION Q4-6H PRN (Reason: shortness of breath or wheezing) Qty: 8.5 RF: 0 doxycycline hyclate 100 mg capsule 100 mg PO BID Qty: 14 RF: 0 prednisone 20 mg tablet 40 mg PO DAILY Qty: 10 RF: 0 No Action docusate sodium 50 mg/5 mL Liquid 100 mg PO BID Qty: 30 RF: 0 sennosides [senna] 8.6 mg Tablet 8.6 mg PO BEDTIME Qty: 10 RF: 1 acetaminophen 325 mg Tablet 650 mg PO Q6HR PRN (Reason: As Needed For Fever/Mild Pain) Qty: 60 RF: 1 ondansetron 4 mg Tablet,Disintegrating 4 mg Sublingual Q4HR PRN (Reason: Nausea) Qty: 10 RF: 0 hydrocodone-acetaminophen 7.5-325 mg/15 mL Solution 15 ml PO Q6HR PRN (Reason: Pain, Moderate (4-6)) Qty: 14 RF: 0 Referrals: [facility] [Outside] Steve Pagan MD [Primary Care Provider] -
[2020-11-29 13:14] LABS: INR 1.2 (0.9-1.3)
[2020-11-29 13:17] LABS: PTT Partial Thromboplastin Tim 34 SECONDS (26.4-36.2)
[2020-11-29 13:19] LABS: Alanine Aminotransferase 17 IU/L (<35); Albumin 3.5 g/dL (3.5-5.0); Albumin Globulin Ratio 1.3 (1.0-2.8); Alkaline Phosphatase 103 U/L (38-126); Aspartate Aminotransferase 23 IU/L (14-36); BUN Creatinine Ratio 23.7 (6-22); Bilirubin Total 0.5 mg/dL (0.2-1.3); Blood Urea Nitrogen 18 mg/dL (7-17); Calcium 9.5 mg/dL (8.4-10.2); Carbon Dioxide 28 mmol/L (22-32); Chloride 99 mmol/L (98-107); Creatine Kinase 24 U/L (30-135); Estimated Glomerular Filt Rate > 60.0 mL/min (>60); Globulin 2.7 g/dL (1.7-4.1); Glucose 109 mg/dL (80-110); HEMOLYSIS < 15 (0-50); Lipase 18 U/L (23-300); Potassium 4.5 mmol/L (3.4-5.1); Sodium 136 mmol/L (137-145); Total Protein 6.2 g/dL (6.3-8.2)
[2020-11-29 13:30] LABS: D Dimer 410 ng/mL (<230)
[2020-11-29 13:31] LABS: Troponin I < 0.012 ng/mL (0.01-0.034)
[2020-11-29 13:48] LABS: NT-proBNP (BNP-Adult 18+) 312 pg/mL (<450)
[2020-11-29 14:28] LABS: COVID19 -Nasal RAPID Negative (Negative)
--- NOTE | 2020-11-29 14:56 | DI.CT.S_ITS ---
PROCEDURE: CT ANGIO CHEST PE PROTOCOL INDICATIONS: +dimer and short of breath TECHNIQUE: After the administration of intravenous contrast, 2 mm thick sections acquired from the pulmonary apices to the posterior costophrenic angles. 3-dimensional maximum intensity projection (MIP) coronal and sagittal reformats were then acquired through the thorax. For radiation dose reduction, the following was used: automated exposure control, adjustment of mA and/or kV according to patient size. COMPARISON: [facility], CT, CT ABDOMEN PELVIS W CON, 04/09/2018, 10:21. [facility], CR, XR CHEST 1V, 11/29/2020, 11:45. FINDINGS: Image quality: Excellent. Pulmonary arteries: Pulmonary arteries are normal in size, and demonstrate no intraluminal filling defects to suggest central pulmonary embolism. Lungs and pleura: Prominent centrilobular emphysematous changes are seen, which are worst at the lung apices and at the lung bases. The lungs are hyperexpanded. Subpleural nodules are seen, with the largest seen on series 6, image 231 within the left lower lobe laterally measuring 6 mm. There is also a sessile area of pleural thickening seen within the right lower lobe laterally, as on series 6 image 150 measuring 5 mm. No focal infiltrates are seen. No pneumothorax or pleural effusions are seen. The central airways are patent. Mediastinum: Heart size is normal, without pericardial effusion. No mediastinal or hilar adenopathy. Thoracic aorta is normal in caliber and enhancement. Atherosclerotic calcification is noted. Negative for aortic dissection. Esophagus is normal in caliber, without hiatal hernia. Bones and chest wall: No suspicious bony lesions. Ribs and thoracic spine appear intact throughout. Age-appropriate bony degenerative changes are seen. Thyroid gland demonstrates no significant abnormality. No axillary or supraclavicular adenopathy. Abdomen: A water density cyst is seen on the right matter measuring 3 cm. Smaller simple appearing renal cysts are seen elsewhere. IMPRESSION: Negative for pulmonary embolism. No findings of aortic aneurysm or dissection can be seen. Prominent emphysematous changes are seen. Subpleural pulmonary nodules are seen, which are most likely related to benign subpleural lymph nodes. However, please consider noncontrast chest CT follow-up in 6 months. Dictated by: Trevon Coffey M.D. on 11/29/2020 at 14:55 Approved by: Trevon Coffey M.D. on 11/29/2020 at 14:59
[2020-11-29] MEDS: IPRATROPIUM 0.5 MG/2.5 ML NEB INH (15:15)
[2020-11-29] MEDS: ALBUTEROL 2.5 MG/3 ML NEB (ADULT) INH ×2 (15:15→16:51)
--- NOTE | 2020-11-29 16:06 | PC.NURSE ---
Pt placed on ETCO2 NC on 0.5L O2 for comfort, taught and encouraged slowing rate and depth of breathing
[2020-11-29] MEDS: methylPREDNISolone 125 MG/2 ML VIAL IV (16:40)
== END 2020-11-29 17:26 | disposition home or self-care (01) ==
PROVIDERS: Emergency Provider Emergency Medicine; PCP Internal Medicine
DX: J44.1 Chronic obstructive pulmonary disease with (acute) exacerbation (principal); R07.9 Chest pain, unspecified; Z20.822 Contact with and (suspected) exposure to COVID-19
CPT/HCPCS: 36415; 71045; 71275; 80053; 82550; 83690; 83880; 84484; 85025; 85379; 85610; 85730; 87635; 93005; 93010; 94640; 96374; 99284; C9803; J2930; J7613; Q9967